=== PATIENT | male | born 1975 | race Caucasian/White ===

== ENCOUNTER 2017-08-27 11:14 | Inpatient (IN) | payer OTHER ==
[2017-08-27 12:43] VITALS: BMI 36.5
--- NOTE | 2017-08-27 16:10 | HP ---
CIWA Score - CIWA Score Nausea/Vomitin Muscle Tremors: 3 Anxiety: 3 Agitation: 3 Paroxysmal Sweats: 2 Orientation: 0-Oriented Tacttile Disturbances: 2-Mild Itch/Numbness/Burn Auditory Disturbances: 2-Mild Harshness/Frighten Visual Disturbances: 2-Mild Sensitivity Headache: 2-Mild CIWA-Ar Total Score: 22 Admission ROS [facility] - HPI Chief Complaint: I NEED HELP TO STOP DRINKING ALCOHOL,XANAX,COCAINE,HEROIN DEPENDENCE,METHADONE MAINTENANCE 80 MGS/DAY, LAST MEDICATED YESTERDAY SEIZURE THIS MORNING,SYNCOPE HTN,TYPE 2 DM, ANXIETY,DEPRESSION,INSOMNIA LONGEST SOBRIETY 3 YEARS Allergies/Adverse Reactions: Allergies Allergy/AdvReac Type Severity Reaction Status Date / Time No Known Allergies Allergy Verified 08/27/17 16:16 History of Present Illness: THIS 42 YEARS OLD MALE WITH ALCOHOL,COCAINE,KLONOPIN,HEROIN ABUSED,MMTP 80 MGS/DAY,LAST MEDICATED SAT 08/26/17 MENTIONED ABOVE - Ebola screening Have you traveled outside of the country in the last 21 days: No (N) Have you had contact with anyone from an Ebola affected area: No Have you been sick,other than usual withdrawal symptoms: No Do you have a fever: No - Review of Systems Constitutional: Chills, Diaphoresis, Loss of Appetite, Malaise, Night Sweats, Changes in sleep, Weakness, Unintentional Wgt. Loss EENT: reports: Tearing, Nose Congestion Respiratory: reports: No Symptoms reported Cardiac: reports: No Symptoms Reported GI: reports: Diarrhea, Nausea, Vomiting, Abdominal cramping : reports: No Symptoms Reported Musculoskeletal: reports: Back Pain, Muscle Pain Integumentary: reports: Dryness Neuro: reports: Headache, Tremors Endocrine: reports: No Symptoms Reported Hematology: reports: No Symptoms Reported Psychiatric: reports: No Sypmtoms Reported, Judgement Intact, Mood/Affect Appropiate, Orientated x3, Anxious, Depressed Patient History - Patient Medical History Hx Anemia: No Hx Asthma: No Hx Chronic Obstructive Pulmonary Disease (COPD): No Hx Cancer: No Hx Cardiac Disorders: No Hx Congestive Heart Failure: No Hx Hypertension: Yes (ON ENALAPRIL 5 MGS PO DAILY) Hx Hypercholesterolemia: No Hx Pacemaker: No HX Cerebrovascular Accident: No Hx Seizures: Yes (LAST 08/27/17) Hx Dementia: No Hx Diabetes: Yes (ON METFORMIN 500 MGS PO DAILY) Hx Gastrointestinal Disorders: No Hx Liver Disease: No Hx Genitourinary Disorders: No Hx Sexually Transmitted Disorders: No Hx Renal Disease (ESRD): No Hx Thyroid Disease: No Hx Human Immunodeficiency Virus (HIV): No (LAST 08/03 NEGATIVE) Hx Hepatitis C: Yes (TREATED WITH HARVONI ) Hx Depression: Yes (ANXIETY,INSOMNIA) Hx Suicide Attempt: No Hx Bipolar Disorder: No Hx Schizophrenia: No Other Medical History: NO SUICIDAL,NO HOMICIDAL - Patient Surgical History Past Surgical History: No - PPD History Previous Implant?: Yes Documented Results: Negative w/o proof Implanted On Prior [facility] Admission?: No PPD to be Administered?: Yes - Smoking Cessation Smoking history: Current every day smoker Have you smoked in the past 12 months: Yes Aproximately how many cigarettes per day: 20 Hx Chewing Tobacco Use: No Initiated information on smoking cessation: Yes 'Breaking Loose' booklet given: 08/27/17 - Substance & Tx. History Hx Alcohol Use: Yes Hx Substance Use: Yes Substance Use Type: Alcohol, Cocaine, Heroin, Tranquilizers Hx Substance Use Treatment: Yes ([facility] 07/13 COMPLETED) - Substances Abused Benzodiazepine (Klonopin) Route: Oral Frequency: Daily Amount used: 6 MGS Age of first use: 41 Date of Last Use: 08/27/17 Alcohol Route: Oral Frequency: Daily Amount used: 3 OF 12 OZS OF BEER Age of first use: 19 Date of Last Use: 08/27/17 Cocaine Route: Smoking Frequency: 1-2 times per week Amount used: 20$ Age of first use: 20 Date of Last Use: 08/26/17 Heroin Route: Inhalation Frequency: Daily Amount used: 5 TO 6 BAGS Age of first use: 22 Date of Last Use: 08/26/17 Family Disease History - Family Disease History Family History: Denies Admission Physical Exam S - Vital Signs Vital Signs: Vital Signs - 24 hr 08/27/17 12:31 Temperature 97.8 F Pulse Rate 86 Respiratory 19 Rate Blood Pressure 158/95 - Physical General Appearance: Yes: Moderate Distress, Tremorous, Irritable, Sweating, Anxious HEENTM: Yes: Normal ENT Inspection, GOPI, Pharynx Normal Respiratory: Yes: Lungs Clear, Normal Breath Sounds, No Respiratory Distress Neck: Yes: Within Normal Limits Breast: Yes: Within Normal Limits Cardiology: Yes: Within Normal Limits, Regular Rhythm, Regular Rate, S1, S2 Abdominal: Yes: Within Normal Limits, Normal Bowel Sounds, Non Tender, Soft Genitourinary: Yes: Within Normal Limits Back: Yes: Muscle Spasm Musculoskeletal: Yes: full range of Motion, Back pain, Muscle Pain Extremities: Yes: Within Normal Limits, Normal Range of Motion, Tremors Neurological: Yes: facilities operator II-XII NML intact, Fully Oriented, Alert, Motor Strength 5/5 Integumentary: Yes: Dry Lymphatic: Yes: Within Normal Limits - Diagnostic (1) Uncomplicated sedative, hypnotic or anxiolytic withdrawal Current Visit: Yes Status: Acute (2) Cocaine dependence Current Visit: Yes Status: Acute (3) Alcohol dependence, uncomplicated Current Visit: Yes Status: Acute (4) Heroin abuse Current Visit: Yes Status: Acute (5) Methadone maintenance therapy patient Current Visit: Yes Status: Acute (6) Nicotine dependence Current Visit: Yes Status: Acute (7) Weight loss Current Visit: Yes Status: Acute Cleared for Admission [facility] - Detox or Rehab [facility] Level of Care: Medically Managed Detox Regimen/Protocol: Valium [facility] Breath Alcohol Content Breath Alcohol Content: 0 Urine Drug Screen - Results Drug Screen Negative: No Urine Drug Screen Results: CIRO-Cocaine, OPI-Opiates, MTD-Methadone
[2017-08-27] MEDS ORDERED: MENTHOL/PHENOL 1 EACH UD MM PRN (16:39)
[2017-08-27] MEDS ORDERED: ACETAMINOPHEN 325 MG TABLET (FP) PO PRN (16:39)
[2017-08-27] MEDS ORDERED: IBUPROFEN 400 MG TABLET (FP) PO PRN (16:39)
[2017-08-27] MEDS ORDERED: diazePAM 5 MG TABLET PO PRN (16:39)
[2017-08-27] MEDS ORDERED: NICOTINE POLACRILEX 2 MG GUM BC PRN (16:39)
[2017-08-27] MEDS ORDERED: P-EPHED 60MG/TRIPROLIDI 2.5MG TABLET PO PRN (16:39)
[2017-08-27] MEDS ORDERED: hydrOXYzine PAMOATE 50 MG CAPSULE (FP) PO PRN (16:39)
[2017-08-27] MEDS ORDERED: LOPERAMIDE HCL 2 MG CAPSULE PO PRN (16:39)
[2017-08-27] MEDS ORDERED: MAGNESIUM CITRATE 300 ML BOTTLE PO PRN (16:39)
[2017-08-27] MEDS ORDERED: guaiFENesin/D-METHORPHAN HB 10 ML UNIT-DOSE CUPS PO PRN (16:39)
[2017-08-27] MEDS ORDERED: MAG HYDROX/AL HYDROX/SIMETH 30 ML UNIT-DOSE CUP PO PRN (16:39)
[2017-08-27] MEDS ORDERED: MAGNESIUM HYDROX 2400MG/30ML ORAL SUSPENSION 30 ML CUP PO PRN (16:39)
[2017-08-27] MEDS ORDERED: diazePAM 5 MG TABLET PO ONE (17:15)
[2017-08-27] MEDS ORDERED: METHADONE HCL 10 MG TABLET PO ONE (17:15)
[2017-08-27] MEDS ORDERED: FLU VACCINE QUAD 60 MCG/0.5 ML (MDV 17-18) IM ONE (18:15)
[2017-08-27] MEDS: NICOTINE 21 MG/24 HOURS TOPICAL PATCH TD SCH (18:28)
[2017-08-27] MEDS: diazePAM 5 MG TABLET PO SCH (22:13)
[2017-08-27] MEDS: THIAMINE HCL 100 MG TABLET (FP) PO SCH (22:13)
[2017-08-27 22:55] LABS: URINE APPEARANCE CLEAR; URINE BILIRUBIN NEGATIVE (NEGATIVE); URINE BLOOD NEGATIVE (NEGATIVE); URINE COLOR YELLOW; URINE GLUCOSE (UA) NEGATIVE (NEGATIVE); URINE KETONE NEGATIVE (NEGATIVE); URINE LEUK ESTERASE NEGATIVE (NEGATIVE); URINE NITRITE NEGATIVE (NEGATIVE); URINE PROTEIN NEGATIVE (NEGATIVE); URINE UROBILINOGEN NEGATIVE mg/dL (0.2-1.0)
[2017-08-28] MEDS: diazePAM 5 MG TABLET PO SCH ×3 (05:18→22:06)
[2017-08-28] MEDS: metFORMIN HCL 500 MG TABLET (FP) PO SCH (07:43)
[2017-08-28] MEDS: PRENATAL VITAMINS W/ FOLIC ACID TABLET (FP) PO SCH (09:44)
[2017-08-28] MEDS: ENALAPRIL MALEATE 5 MG TABLET (FP) PO SCH (09:45)
[2017-08-28] MEDS ORDERED: METHADONE HCL 40 MG DISPERSABLE TABLET PO ONE (09:45)
[2017-08-28] MEDS: ASPIRIN COATED 81 MG TABLET.EC PO SCH (09:45)
[2017-08-28 10:16] LABS: HEMOGLOBIN 12.1 GM/dL (11.7-16.9); MCH 29.6 pg (25.7-33.7); MCHC 33.6 g/dl (32.0-35.9); MEAN CELL VOLUME 88.3 fl (80-96); MEAN PLT VOLUME 9.6 fl (7.5-11.1); PLATELET COUNT 162 K/MM3 (134-434); RBC 4.08 M/mm3 (4.00-5.60); RDW 15.6 % (11.9-15.9); WHITE BLOOD COUNT 7.6 K/mm3 (4.0-10.0)
[2017-08-28 10:26] LABS: ALBUMIN 3.5 g/dl (3.4-5.0); ANION GAP 10 (8-16); BLOOD UREA NITROGEN 14 mg/dL (7-18); CALCIUM 8.5 mg/dL (8.5-10.1); CHLORIDE 107 mmol/L (98-107); CO2 26 mmol/L (21-32); GLUCOSE,RANDOM 92 mg/dL (74-106); POTASSIUM 4.1 mmol/L (3.5-5.1); SODIUM 143 mmol/L (136-145)
[2017-08-28 10:30] LABS: ALK PHOS 63 U/L (45-117); BILIRUBIN,TOTAL 0.2 mg/dL (0.2-1.0); CREATININE 0.8 mg/dL (0.7-1.3); SGOT/AST 9 U/L (15-37); SGPT/ALT 13 U/L (12-78); TOT PROT 6.6 g/dl (6.4-8.2)
--- NOTE | 2017-08-28 10:49 | EKG ---
Test Reason : Blood Pressure : / mmHG Vent. Rate : 077 BPM Atrial Rate : 077 BPM P-R Int : 160 ms QRS Dur : 110 ms QT Int : 402 ms P-R-T Axes : 054 047 018 degrees QTc Int : 454 ms NORMAL SINUS RHYTHM NORMAL ECG NO PREVIOUS ECGS AVAILABLE Confirmed by BRIGIDA GANNON MD ([id number]) on 08/28/2017 10:49:25 AM Referred By: Jairo Carrillo Confirmed By:BRIGIDA GANNON MD
[2017-08-28] MEDS: NICOTINE 21 MG/24 HOURS TOPICAL PATCH TD SCH (11:53)
[2017-08-28] MEDS ORDERED: PNEUMOCOCCAL 23 VACCINE 0.5 ML VIAL IM ONE (12:00)
[2017-08-28] MEDS ORDERED: PNEUMOC 13-VAL CONJ-DIP CRM/PF 0.5 ML DISP.SYRIN IM ONE (12:00)
[2017-08-28] MEDS ORDERED: FLU VACCINE QUAD 60 MCG/0.5 ML (MDV 17-18) IM ONE (12:00)
--- NOTE | 2017-08-28 12:32 | CONSULT ---
[facility] Psychiatric Consult - Data Date of interview: 08/28/17 Admission source: [facility] Identifying data: First admission to [facility] for this 42 y/o male seeking detox treatment on for alcohol,cocaine,benzodiazepine and heroin dependence.Patient is ,a father of one,domiciled and currently employed. Substance Abuse History: Confirmed by patient in this interview.See details of patterns of abuse in current [facility] report as follows : Smoking history: Current every day smoker. Have you smoked in the past 12 months: Yes. Aproximately how many cigarettes per day: 20. Hx Chewing Tobacco Use: No. Initiated information on smoking cessation: Yes. 'Breaking Loose' booklet given: . - Substance & Tx. History. Hx Alcohol Use: Yes. Hx Substance Use: Yes. Substance Use Type: Alcohol, Cocaine, Heroin, Tranquilizers. Hx Substance Use Treatment: Yes ([facility] 07/13 COMPLETED). - Substances Abused. Benzodiazepine ( Klonopin). Route: Oral. Frequency: Daily. Amount used: 6 MGS. Age of first use: 41. Date of Last Use: 08/27/17. Alcohol. Route: Oral. Frequency: Daily. Amount used: 3 OF 12 OZS OF BEER. Age of first use: 19. Date of Last Use: 08/27/17. Cocaine. Route: Smoking. Frequency: 1-2 times per week. Amount used: 20$. Age of first use: 20. Date of Last Use: 08/26/17. Heroin. Route: Inhalation. Frequency: Daily. Amount used: 5 TO 6 BAGS. Age of first use: 22. Date of Last Use: 08/26/17 Medical History: Diabetes mellitus,hepatitis C,withdrawal-related seizures and hypertension.No allergies. Psychiatric History: Patient admits to two psychiatric hospitalizations (no recall of names of institutions).Diagnosed with Bipolar Disorder.Prescribed psychotropic medications (unnamed).Mr Dick informs that he is on methadone maintenance (80 mg/day) at the [facility] in the [place].Review of pharmacy yields evidence of refills () for wellbutrin SR 100 mg # 30 + remeron 45 mg # 30.Patient declares a history of suicide attempt (self-mutilation). Physical/Sexual Abuse/Trauma History: Patient denies history of abuse. Additional Comment: Urine Drug Screen Results: CIRO-Cocaine, OPI-Opiates, MTD- Methadone.Noted. Mental Status Exam - Mental Status Exam Alert and Oriented to: Time, Place, Person Cognitive Function: Good Patient Appearance: Well Groomed (obese) Mood: Nervous, Withdrawn, Anxious Affect: Mood Congruent, Constricted Patient Behavior: Fatigued, Appropriate, Cooperative Speech Pattern: Clear, Appropriate Voice Loudness: Normal Thought Process: Intact, Goal Oriented Thought Disorder: Not Present Hallucinations: Denies Suicidal Ideation: Denies Homicidal Ideation: Denies Insight/Judgement: Poor Sleep: Poorly, Difficulty falling asleep Appetite: Good Muscle strength/Tone: Normal Gait/Station: Normal Psychiatric Findings - Problem List ([place] 1, 2,3) (1) Uncomplicated sedative, hypnotic or anxiolytic withdrawal Status: Acute (2) Cocaine dependence Status: Acute Qualifiers: Substance use status: uncomplicated Qualified Code(s): F14.20 - Cocaine dependence, uncomplicated (3) Alcohol dependence, uncomplicated Status: Acute (4) Nicotine dependence Status: Acute Qualifiers: Nicotine product type: cigarettes Substance use status: uncomplicated Qualified Code(s): F17.210 - Nicotine dependence, cigarettes, uncomplicated (5) Opioid dependence on agonist therapy Status: Acute (6) Substance induced mood disorder Status: Acute (7) Insomnia Status: Acute Qualifiers: Insomnia type: unspecified Qualified Code(s): G47.00 - Insomnia, unspecified - Initial Treatment Plan Initial Treatment Plan: Psychoeducation.Sleep hygiene.Detoxification in progress.Medications : wellbutrin XL 150 mg po daily + remeron 15 mg po hs.Side effects/benefits of both drugs are discussed with the patient.Mr Dick agrees to follow this plan of care.Observation.
--- NOTE | 2017-08-28 13:24 | PN ---
[facility] CIWA - CIWA Score Nausea/Vomitin Muscle Tremors: 3 Anxiety: 3 Agitation: 4-Moderately Restless Paroxysmal Sweats: 3 Orientation: 0-Oriented Tacttile Disturbances: 0-None Auditory Disturbances: 0-None Visual Disturbances: 0-None Headache: 0-None Present CIWA-Ar Total Score: 16 S Progress Note (SOAP) Subjective: sleep disturbance shakes sweats Objective: 08/28/17 13:21 A & O x 3 Anxious Vital Signs Temperature 96.6 F L 08/28/17 09:57 Pulse Rate 70 08/28/17 09:57 Respiratory Rate 20 08/28/17 09:57 Blood Pressure 147/95 08/28/17 09:57 O2 Sat by Pulse Oximetry (%) Laboratory Last Values WBC 7.6 K/mm3 (4.0-10.0) 08/28/17 07:00 RBC 4.08 M/mm3 (4.00-5.60) 08/28/17 07:00 Hgb 12.1 GM/dL (11.7-16.9) 08/28/17 07:00 Hct 36.0 % (35.4-49) 08/28/17 07:00 MCV 88.3 fl (80-96) 08/28/17 07:00 MCH 29.6 pg (25.7-33.7) 08/28/17 07:00 MCHC 33.6 g/dl (32.0-35.9) 08/28/17 07:00 RDW 15.6 % (11.9-15.9) 08/28/17 07:00 Plt Count 162 K/MM3 (134-434) 08/28/17 07:00 MPV 9.6 fl (7.5-11.1) 08/28/17 07:00 Sodium 143 mmol/L (136-145) 08/28/17 07:00 Potassium 4.1 mmol/L (3.5-5.1) 08/28/17 07:00 Chloride 107 mmol/L (98-107) 08/28/17 07:00 Carbon Dioxide 26 mmol/L (21-32) 08/28/17 07:00 Anion Gap 10 (8-16) 08/28/17 07:00 BUN 14 mg/dL (7-18) 08/28/17 07:00 Creatinine 0.8 mg/dL (0.7-1.3) 08/28/17 07:00 Creat Clearance w eGFR > 60 (>60) 08/28/17 07:00 POC Glucometer 100 UNITS (80-120) 08/28/17 05:18 Random Glucose 92 mg/dL (74-106) 08/28/17 07:00 Calcium 8.5 mg/dL (8.5-10.1) 08/28/17 07:00 Total Bilirubin 0.2 mg/dL (0.2-1.0) 08/28/17 07:00 AST 9 U/L (15-37) L 08/28/17 07:00 ALT 13 U/L (12-78) 08/28/17 07:00 Alkaline Phosphatase 63 U/L (45-117) 08/28/17 07:00 Total Protein 6.6 g/dl (6.4-8.2) 08/28/17 07:00 Albumin 3.5 g/dl (3.4-5.0) 08/28/17 07:00 Urine Color Yellow 08/27/17 22:40 Urine Appearance Clear 08/27/17 22:40 Urine pH 6.0 (5.0-8.0) 08/27/17 22:40 Ur Specific [place] 1.026 (1.001-1.035) 08/27/17 22:40 Urine Protein Negative (NEGATIVE) 08/27/17 22:40 Urine Glucose (UA) Negative (NEGATIVE) 08/27/17 22:40 Urine Ketones Negative (NEGATIVE) 08/27/17 22:40 Urine Blood Negative (NEGATIVE) 08/27/17 22:40 Urine Nitrite Negative (NEGATIVE) 08/27/17 22:40 Urine Bilirubin Negative (NEGATIVE) 08/27/17 22:40 Urine Urobilinogen Negative mg/dL (0.2-1.0) 08/27/17 22:40 Ur Leukocyte Esterase Negative (NEGATIVE) 08/27/17 22:40 RPR Titer Nonreactive (NONREACTIVE) 08/28/17 07:00 labs noted Assessment: 08/28/17 13:24 withdrawal sx Plan: continue detox
[2017-08-28] MEDS: MIRTAZAPINE 15 MG TABLET (FP) PO SCH (22:06)
[2017-08-28] MEDS: THIAMINE HCL 100 MG TABLET (FP) PO SCH (22:06)
[2017-08-29] MEDS: METHADONE HCL 40 MG DISPERSABLE TABLET PO SCH (05:39)
[2017-08-29] MEDS: metFORMIN HCL 500 MG TABLET (FP) PO SCH (06:10)
[2017-08-29] MEDS: diazePAM 5 MG TABLET PO SCH ×2 (10:25→22:12)
[2017-08-29] MEDS: PRENATAL VITAMINS W/ FOLIC ACID TABLET (FP) PO SCH (10:25)
[2017-08-29] MEDS: ASPIRIN COATED 81 MG TABLET.EC PO SCH (10:25)
[2017-08-29] MEDS: ENALAPRIL MALEATE 5 MG TABLET (FP) PO SCH (10:25)
[2017-08-29] MEDS: NICOTINE 21 MG/24 HOURS TOPICAL PATCH TD SCH (10:25)
--- NOTE | 2017-08-29 12:36 | PN ---
[facility] CIWA - CIWA Score Nausea/Vomitin-No Nausea/No Vomiting Muscle Tremors: 4-Moderate,w/Arms Extend Anxiety: 3 Agitation: 3 Paroxysmal Sweats: No Perspiration Orientation: 2-Disoriented Date<2 days Tacttile Disturbances: 3-Moderate Itch/Numb/Burn Auditory Disturbances: 2-Mild Harshness/Frighten Visual Disturbances: 0-None Headache: 0-None Present CIWA-Ar Total Score: 17 S Progress Note (SOAP) Subjective: Constipation, Tremors, Interrupted Sleep. Objective: PATIENT A & O X 2 (UNCERTAIN ABOUT CURRENT DAY/ DATE). PATIENT OBSERVED AMBULATING ON UNIT. NO ACUTE DISTRESS. 08/29/17 12:34 Vital Signs Temperature 96.4 F L 08/29/17 09:07 Pulse Rate 74 08/29/17 09:07 Respiratory Rate 18 08/29/17 09:07 Blood Pressure 125/78 08/29/17 09:07 O2 Sat by Pulse Oximetry (%) Laboratory Tests 08/27/17 08/27/17 08/28/17 18:20 22:40 05:18 WBC RBC Hgb Hct MCV MCH MCHC RDW Plt Count MPV Sodium Potassium Chloride Carbon Dioxide Anion Gap BUN Creatinine Creat Clearance w eGFR POC Glucometer 145 100 Random Glucose Calcium Total Bilirubin AST ALT Alkaline Phosphatase Total Protein Albumin Urine Color Yellow Urine Appearance Clear Urine pH 6.0 Ur Specific [place] 1.026 Urine Protein Negative Urine Glucose (UA) Negative Urine Ketones Negative Urine Blood Negative Urine Nitrite Negative Urine Bilirubin Negative Urine Urobilinogen Negative Ur Leukocyte Esterase Negative RPR Titer 08/28/17 08/28/17 08/28/17 07:00 07:00 07:00 WBC 7.6 RBC 4.08 Hgb 12.1 Hct 36.0 MCV 88.3 MCH 29.6 MCHC 33.6 RDW 15.6 Plt Count 162 MPV 9.6 Sodium 143 Potassium 4.1 Chloride 107 Carbon Dioxide 26 Anion Gap 10 BUN 14 Creatinine 0.8 Creat Clearance w eGFR > 60 POC Glucometer Random Glucose 92 Calcium 8.5 Total Bilirubin 0.2 AST 9 L ALT 13 Alkaline Phosphatase 63 Total Protein 6.6 Albumin 3.5 Urine Color Urine Appearance Urine pH Ur Specific [place] Urine Protein Urine Glucose (UA) Urine Ketones Urine Blood Urine Nitrite Urine Bilirubin Urine Urobilinogen Ur Leukocyte Esterase RPR Titer Nonreactive 08/28/17 08/29/17 16:25 05:41 WBC RBC Hgb Hct MCV MCH MCHC RDW Plt Count MPV Sodium Potassium Chloride Carbon Dioxide Anion Gap BUN Creatinine Creat Clearance w eGFR POC Glucometer 138 128 Random Glucose Calcium Total Bilirubin AST ALT Alkaline Phosphatase Total Protein Albumin Urine Color Urine Appearance Urine pH Ur Specific [place] Urine Protein Urine Glucose (UA) Urine Ketones Urine Blood Urine Nitrite Urine Bilirubin Urine Urobilinogen Ur Leukocyte Esterase RPR Titer LABS NOTED. Assessment: 08/29/17 12:34 WITHDRAWAL SYMPTOMS. Plan: CONTINUE DETOX.
[2017-08-29] MEDS: MIRTAZAPINE 15 MG TABLET (FP) PO SCH (22:12)
[2017-08-29] MEDS: THIAMINE HCL 100 MG TABLET (FP) PO SCH (22:12)
[2017-08-30] MEDS: METHADONE HCL 40 MG DISPERSABLE TABLET PO SCH (05:46)
[2017-08-30] MEDS: metFORMIN HCL 500 MG TABLET (FP) PO SCH (07:29)
[2017-08-30] MEDS: NICOTINE 21 MG/24 HOURS TOPICAL PATCH TD SCH (10:18)
[2017-08-30] MEDS: ENALAPRIL MALEATE 5 MG TABLET (FP) PO SCH (10:18)
[2017-08-30] MEDS: ASPIRIN COATED 81 MG TABLET.EC PO SCH (10:18)
[2017-08-30] MEDS: diazePAM 5 MG TABLET PO SCH ×2 (10:18→23:12)
[2017-08-30] MEDS: PRENATAL VITAMINS W/ FOLIC ACID TABLET (FP) PO SCH (10:18)
--- NOTE | 2017-08-30 12:21 | PN ---
[facility] Progress Note (SOAP) Subjective: Anxious, Tremors. Objective: PATIENT A & O X 3, OBSERVED AMBULATING ON UNIT. NO ACUTE DISTRESS. 08/30/17 12:21 Vital Signs Temperature 99.0 F 08/30/17 09:11 Pulse Rate 90 08/30/17 09:11 Respiratory Rate 18 08/30/17 09:11 Blood Pressure 130/78 08/30/17 09:11 O2 Sat by Pulse Oximetry (%) Laboratory Tests 08/27/17 08/27/17 08/28/17 18:20 22:40 05:18 WBC RBC Hgb Hct MCV MCH MCHC RDW Plt Count MPV Sodium Potassium Chloride Carbon Dioxide Anion Gap BUN Creatinine Creat Clearance w eGFR POC Glucometer 145 100 Random Glucose Calcium Total Bilirubin AST ALT Alkaline Phosphatase Total Protein Albumin Urine Color Yellow Urine Appearance Clear Urine pH 6.0 Ur Specific [place] 1.026 Urine Protein Negative Urine Glucose (UA) Negative Urine Ketones Negative Urine Blood Negative Urine Nitrite Negative Urine Bilirubin Negative Urine Urobilinogen Negative Ur Leukocyte Esterase Negative RPR Titer 08/28/17 08/28/17 08/28/17 07:00 07:00 07:00 WBC 7.6 RBC 4.08 Hgb 12.1 Hct 36.0 MCV 88.3 MCH 29.6 MCHC 33.6 RDW 15.6 Plt Count 162 MPV 9.6 Sodium 143 Potassium 4.1 Chloride 107 Carbon Dioxide 26 Anion Gap 10 BUN 14 Creatinine 0.8 Creat Clearance w eGFR > 60 POC Glucometer Random Glucose 92 Calcium 8.5 Total Bilirubin 0.2 AST 9 L ALT 13 Alkaline Phosphatase 63 Total Protein 6.6 Albumin 3.5 Urine Color Urine Appearance Urine pH Ur Specific [place] Urine Protein Urine Glucose (UA) Urine Ketones Urine Blood Urine Nitrite Urine Bilirubin Urine Urobilinogen Ur Leukocyte Esterase RPR Titer Nonreactive 08/28/17 08/29/17 08/29/17 16:25 05:41 16:25 WBC RBC Hgb Hct MCV MCH MCHC RDW Plt Count MPV Sodium Potassium Chloride Carbon Dioxide Anion Gap BUN Creatinine Creat Clearance w eGFR POC Glucometer 138 128 133 Random Glucose Calcium Total Bilirubin AST ALT Alkaline Phosphatase Total Protein Albumin Urine Color Urine Appearance Urine pH Ur Specific [place] Urine Protein Urine Glucose (UA) Urine Ketones Urine Blood Urine Nitrite Urine Bilirubin Urine Urobilinogen Ur Leukocyte Esterase RPR Titer 08/30/17 05:48 WBC RBC Hgb Hct MCV MCH MCHC RDW Plt Count MPV Sodium Potassium Chloride Carbon Dioxide Anion Gap BUN Creatinine Creat Clearance w eGFR POC Glucometer 95 Random Glucose Calcium Total Bilirubin AST ALT Alkaline Phosphatase Total Protein Albumin Urine Color Urine Appearance Urine pH Ur Specific [place] Urine Protein Urine Glucose (UA) Urine Ketones Urine Blood Urine Nitrite Urine Bilirubin Urine Urobilinogen Ur Leukocyte Esterase RPR Titer LABS NOTED. Assessment: 08/30/17 12:22 WITHDRAWAL SYMPTOMS. Plan: CONTINUE DETOX.
[2017-08-30] MEDS: THIAMINE HCL 100 MG TABLET (FP) PO SCH (23:12)
[2017-08-30] MEDS: MIRTAZAPINE 15 MG TABLET (FP) PO SCH (23:12)
[2017-08-31] MEDS: METHADONE HCL 40 MG DISPERSABLE TABLET PO SCH (05:36)
[2017-08-31 06:17] VITALS: BP 143/92; PULSE 78; TEMP 98
[2017-08-31] MEDS: metFORMIN HCL 500 MG TABLET (FP) PO SCH (06:25)
[2017-08-31] MEDS ORDERED: diazePAM 5 MG TABLET PO SCH (10:00)
--- NOTE | 2017-08-31 15:17 | DS ---
[facility] Detox Discharge Summary Admission Date: 08/27/17 Discharge Date: 08/31/17 - History Present History: Alcohol Dependence, Cocaine Dependence, Opioid Dependence, Sedative Dependence, MMTP Additional Comments: PATIENT RETURNING TO MMTP PROGRAM ([facility]). PATIENT WAS DISCHARGED FROM DETOX UNIT IN STABLE MEDICAL CONDITION. Pertinent Past History: Nicotine Dependence, Weight Loss, Insomnia, HTN, TYPE II DM, MMTP. - Physical Exam Results Vital Signs: Vital Signs Temperature 98 F 08/31/17 06:17 Pulse Rate 78 08/31/17 06:17 Respiratory Rate 18 08/31/17 06:17 Blood Pressure 143/92 08/31/17 06:17 O2 Sat by Pulse Oximetry (%) Pertinent Admission Physical Exam Findings: WITHDRAWAL SYMPTOMS. Laboratory Tests 08/27/17 08/27/17 08/28/17 18:20 22:40 05:18 WBC RBC Hgb Hct MCV MCH MCHC RDW Plt Count MPV Sodium Potassium Chloride Carbon Dioxide Anion Gap BUN Creatinine Creat Clearance w eGFR POC Glucometer 145 100 Random Glucose Calcium Total Bilirubin AST ALT Alkaline Phosphatase Total Protein Albumin Urine Color Yellow Urine Appearance Clear Urine pH 6.0 Ur Specific [place] 1.026 Urine Protein Negative Urine Glucose (UA) Negative Urine Ketones Negative Urine Blood Negative Urine Nitrite Negative Urine Bilirubin Negative Urine Urobilinogen Negative Ur Leukocyte Esterase Negative RPR Titer 08/28/17 08/28/17 08/28/17 07:00 07:00 07:00 WBC 7.6 RBC 4.08 Hgb 12.1 Hct 36.0 MCV 88.3 MCH 29.6 MCHC 33.6 RDW 15.6 Plt Count 162 MPV 9.6 Sodium 143 Potassium 4.1 Chloride 107 Carbon Dioxide 26 Anion Gap 10 BUN 14 Creatinine 0.8 Creat Clearance w eGFR > 60 POC Glucometer Random Glucose 92 Calcium 8.5 Total Bilirubin 0.2 AST 9 L ALT 13 Alkaline Phosphatase 63 Total Protein 6.6 Albumin 3.5 Urine Color Urine Appearance Urine pH Ur Specific [place] Urine Protein Urine Glucose (UA) Urine Ketones Urine Blood Urine Nitrite Urine Bilirubin Urine Urobilinogen Ur Leukocyte Esterase RPR Titer Nonreactive 08/28/17 08/29/17 08/29/17 16:25 05:41 16:25 WBC RBC Hgb Hct MCV MCH MCHC RDW Plt Count MPV Sodium Potassium Chloride Carbon Dioxide Anion Gap BUN Creatinine Creat Clearance w eGFR POC Glucometer 138 128 133 Random Glucose Calcium Total Bilirubin AST ALT Alkaline Phosphatase Total Protein Albumin Urine Color Urine Appearance Urine pH Ur Specific [place] Urine Protein Urine Glucose (UA) Urine Ketones Urine Blood Urine Nitrite Urine Bilirubin Urine Urobilinogen Ur Leukocyte Esterase RPR Titer 08/30/17 08/31/17 05:48 05:38 WBC RBC Hgb Hct MCV MCH MCHC RDW Plt Count MPV Sodium Potassium Chloride Carbon Dioxide Anion Gap BUN Creatinine Creat Clearance w eGFR POC Glucometer 95 93 Random Glucose Calcium Total Bilirubin AST ALT Alkaline Phosphatase Total Protein Albumin Urine Color Urine Appearance Urine pH Ur Specific [place] Urine Protein Urine Glucose (UA) Urine Ketones Urine Blood Urine Nitrite Urine Bilirubin Urine Urobilinogen Ur Leukocyte Esterase RPR Titer LABS NOTED. - Treatment Hospital Course: Detox Protocol Followed, Detoxed Safely, Responded well, Discharged Condition Good Patient has Accepted a Rehab Referral to: PATIENT RETURNING TO [facility] FOR AFTERCARE. - Medication Discharge Medications: Ambulatory Orders Enalapril Maleate [Vasotec] 5 mg PO DAILY 08/27/17 Metformin HCl [Glucophage] 500 mg PO DAILY 08/27/17 Bupropion HCl [Wellbutrin Xl -] 150 mg PO DAILY #30 tablet 08/28/17 Mirtazapine [Remeron -] 30 mg PO HS #30 tablet 08/28/17 - Diagnosis (1) Alcohol dependence, uncomplicated Status: Acute (2) Cocaine dependence Status: Acute Qualifiers: Substance use status: uncomplicated Qualified Code(s): F14.20 - Cocaine dependence, uncomplicated (3) Heroin abuse Status: Acute (4) Methadone maintenance therapy patient Status: Acute (5) Nicotine dependence Status: Acute Qualifiers: Nicotine product type: cigarettes Substance use status: uncomplicated Qualified Code(s): F17.210 - Nicotine dependence, cigarettes, uncomplicated (6) Uncomplicated sedative, hypnotic or anxiolytic withdrawal Status: Acute (7) Weight loss Status: Acute (8) Insomnia Status: Acute Qualifiers: Insomnia type: unspecified Qualified Code(s): G47.00 - Insomnia, unspecified (9) Opioid dependence on agonist therapy Status: Acute (10) Substance induced mood disorder Status: Acute - AMA Did Patient Leave Against Medical Advice: No
== END 2017-08-31 06:30 | disposition home or self-care (01) | DRG 773 ==
LOC: YASAS 11:14 → Y3N 17:13 → MERGE 17:13
PROVIDERS: ADMIT Internal Medicine; ATTEND Internal Medicine
PROC: HZ2ZZZZ Detoxification Services for Substance Abuse Treatment (ICD-10-PCS; principal; 2017-08-27)
DX: F10.230 Alcohol dependence with withdrawal, uncomplicated (principal); F11.20 Opioid dependence, uncomplicated; F13.230 Sedative, hypnotic or anxiolytic dependence with withdrawal, uncomplicated; F14.20 Cocaine dependence, uncomplicated; F17.210 Nicotine dependence, cigarettes, uncomplicated; F19.24 Other psychoactive substance dependence with psychoactive substance-induced mood disorder; I10 Essential (primary) hypertension; G47.00 Insomnia, unspecified; G40.909 Epilepsy, unspecified, not intractable, without status epilepticus; E11.9 Type 2 diabetes mellitus without complications; B18.2 Chronic viral hepatitis C; Z79.84 Long term (current) use of oral hypoglycemic drugs; Z87.898 Personal history of other specified conditions
CPT/HCPCS: 36415; 80053; 81003; 82962; 85027; 86593; 90688; 90732; 93005; 93010; G0008; G0009

== ENCOUNTER 2017-11-20 12:42 | Inpatient (IN) | payer OTHER ==
[2017-11-20 13:36] VITALS: BMI 36.2
--- NOTE | 2017-11-20 16:29 | HP ---
CIWA Score - CIWA Score Nausea/Vomitin-Mild Nausea/No Vomiting Muscle Tremors: 4-Moderate,w/Arms Extend Anxiety: 1-Mildly Anxious Agitation: 1-Slight > Activity Paroxysmal Sweats: 1-Minimal Palms Moist Orientation: 0-Oriented Tacttile Disturbances: 0-None Auditory Disturbances: 0-None Visual Disturbances: 0-None Headache: 0-None Present CIWA-Ar Total Score: 8 Admission ROS S - HPI Chief Complaint: Here for benzo detox. Allergies/Adverse Reactions: Allergies Allergy/AdvReac Type Severity Reaction Status Date / Time No Known Allergies Allergy Verified 11/20/17 14:15 History of Present Illness: Hx heroin use disorder. Currently on methadone maintenance of 90 mg. last methadone dose was on 11/19. Admits to using illicit heroin while on methadone and last used heroin at 8 am today. Currently here for Xanax detox. Started using Xanax 2 mg x 3-4 daily for last several months. Hx. DM, HTN, bipolar disorder and on medications. Alcohol use 1 6 pk 3 days ago. Drinks 1 - 6pk on weekend. Denies cocaine use. Exam Limitations: No Limitations - Ebola screening Have you traveled outside of the country in the last 21 days: No Have you had contact with anyone from an Ebola affected area: No Have you been sick,other than usual withdrawal symptoms: No Do you have a fever: No - Review of Systems Constitutional: Loss of Appetite (States los of appetitie because hasn't had methadone today.), Changes in sleep (Has difficulty falling asleep for 3 years. On meds.) EENT: reports: No Symptoms Reported Respiratory: reports: No Symptoms reported Cardiac: reports: No Symptoms Reported, Other (Hx. high blood pressure.) GI: reports: Nausea, Poor Appetite : reports: No Symptoms Reported Musculoskeletal: reports: No Symptoms Reported Integumentary: reports: No Symptoms Reported, Sweating (r/t withdrawal) Hematology: reports: No Symptoms Reported Psychiatric: reports: Orientated x3, Anxious, other (Hx bipolar. Denies current suicide or violent ideation.) Patient History - Patient Medical History Hx Anemia: No Hx Asthma: No Hx Chronic Obstructive Pulmonary Disease (COPD): No Hx Cancer: No Hx Cardiac Disorders: No Hx Congestive Heart Failure: No Hx Hypertension: Yes (ON ENALAPRIL 5 MGS PO DAILY) Hx Hypercholesterolemia: No Hx Pacemaker: No HX Cerebrovascular Accident: No Hx Seizures: Yes (LAST 08/27/17) Hx Dementia: No Hx Diabetes: Yes (ON METFORMIN 500 MGS PO DAILY) Hx Gastrointestinal Disorders: No Hx Liver Disease: No Hx Genitourinary Disorders: No Hx Sexually Transmitted Disorders: No Hx Renal Disease (ESRD): No Hx Thyroid Disease: No Hx Human Immunodeficiency Virus (HIV): No (LAST 08/03 NEGATIVE) Hx Hepatitis C: Yes (TREATED WITH HARVONI ) Hx Depression: Yes (ANXIETY,INSOMNIA) Hx Suicide Attempt: Yes ([facility] 2011) Hx Bipolar Disorder: No Hx Schizophrenia: No - Patient Surgical History Past Surgical History: No Hx Neurologic Surgery: No Hx Cataract Extraction: No Hx Cardiac Surgery: No Hx Lung Surgery: No Hx Breast Surgery: No Hx Breast Biopsy: No Hx Abdominal Surgery: No Hx Appendectomy: No Hx Cholecystectomy: No Hx Genitourinary Surgery: No Hx Section: No Hx Orthopedic Surgery: No Anesthesia Reaction: No - PPD History Previous Implant?: Yes Documented Results: Negative w/proof Implanted On Prior [facility] Admission?: Yes Date: 08/29/17 Results: NEGATIVE PPD to be Administered?: No - Smoking Cessation Smoking history: Current every day smoker Have you smoked in the past 12 months: Yes Aproximately how many cigarettes per day: 20 Hx Chewing Tobacco Use: No Initiated information on smoking cessation: Yes 'Breaking Loose' booklet given: 11/20/17 - Substance & Tx. History Hx Alcohol Use: Yes (Has reduced use to 1 6 pk/week ) Hx Substance Use: Yes Substance Use Type: Alcohol, Heroin, Tranquilizers Hx Substance Use Treatment: Yes (Alcohol detox, on MMTP) - Substances Abused Heroin Route: Inhalation Frequency: Daily Amount used: 1 BUNDLE DAILY Age of first use: 19 Date of Last Use: 11/20/17 (Last methadone dose 11/19 - 90 mg) Alprazolam (Xanax) Route: Oral Frequency: Daily Amount used: 2 MG - 3-4 x DAILY Age of first use: 42 (past 6 months continuously) Date of Last Use: 11/18/17 Family Disease History - Family Disease History Family Disease History: Heart Disease: Mother (Hearth attack ), Respiratory: Sister (Asthma) Admission Physical Exam [facility] - Vital Signs Vital Signs: Vital Signs - 24 hr 11/20/17 13:20 Temperature 97.9 F Pulse Rate 64 Respiratory 19 Rate Blood Pressure 118/77 - Physical General Appearance: Yes: Tremorous, Sweating (Face and palms of hands) HEENTM: Yes: EOMI, Hearing grossly Normal, Normocephalic, Normal Voice, GOPI Respiratory: Yes: Chest Non-Tender, Lungs Clear, Normal Breath Sounds, No Respiratory Distress Neck: Yes: No masses,lesions,Nodules, Supple Breast: Yes: Breast Exam Deferred Cardiology: Yes: Regular Rhythm, Regular Rate Abdominal: Yes: Normal Bowel Sounds, Non Tender, Soft Genitourinary: Yes: Within Normal Limits Back: Yes: Normal Inspection Musculoskeletal: Yes: full range of Motion, Gait Steady Extremities: Yes: Normal Capillary Refill, Normal Inspection, Normal Range of Motion, Non-Tender Neurological: Yes: dental manager II-XII NML intact, Fully Oriented, Alert, Motor Strength 5/5 Integumentary: Yes: Normal Color, Dry (dry mucous membranes.), Warm - Diagnostic (1) Diabetes Current Visit: Yes Status: Chronic Qualifiers: Diabetes mellitus type: type 2 Diabetes mellitus complication status: without complication (2) Hypertension Current Visit: Yes Status: Chronic Qualifiers: Hypertension type: essential hypertension Qualified Code(s): I10 - Essential (primary) hypertension (3) Overweight (BMI 25.0-29.9) Current Visit: Yes Status: Chronic (4) Heroin abuse Current Visit: Yes Status: Chronic (5) Insomnia Current Visit: Yes Status: Chronic Qualifiers: Insomnia type: unspecified Qualified Code(s): G47.00 - Insomnia, unspecified (6) Methadone maintenance therapy patient Current Visit: Yes Status: Chronic (7) Nicotine dependence Current Visit: Yes Status: Acute Qualifiers: Nicotine product type: cigarettes Substance use status: in withdrawal Qualified Code(s): F17.213 - Nicotine dependence, cigarettes, with withdrawal (8) Uncomplicated sedative, hypnotic or anxiolytic withdrawal Current Visit: Yes Status: Acute (9) Alcohol dependence, uncomplicated Current Visit: No Status: Chronic (10) Dehydration Current Visit: Yes Status: Acute Cleared for Admission S - Detox or Rehab [facility] Level of Care: Medically Managed Detox Regimen/Protocol: Valium [facility] Breath Alcohol Content Breath Alcohol Content: 0 Urine Drug Screen - Results Drug Screen Negative: No Urine Drug Screen Results: OPI-Opiates, BZO-Benzodiazepines, MTD-Methadone
[2017-11-20] MEDS ORDERED: P-EPHED 60MG/TRIPROLIDI 2.5MG TABLET PO PRN (17:02)
[2017-11-20] MEDS ORDERED: MAG HYDROX/AL HYDROX/SIMETH 30 ML UNIT-DOSE CUP PO PRN (17:02)
[2017-11-20] MEDS ORDERED: LOPERAMIDE HCL 2 MG CAPSULE PO PRN (17:02)
[2017-11-20] MEDS ORDERED: MAGNESIUM CITRATE 300 ML BOTTLE PO PRN (17:02)
[2017-11-20] MEDS ORDERED: MENTHOL/PHENOL 1 EACH UD MM PRN (17:02)
[2017-11-20] MEDS ORDERED: guaiFENesin/D-METHORPHAN HB 10 ML UNIT-DOSE CUPS PO PRN (17:02)
[2017-11-20] MEDS ORDERED: IBUPROFEN 400 MG TABLET (FP) PO PRN (17:02)
[2017-11-20] MEDS ORDERED: hydrOXYzine PAMOATE 50 MG CAPSULE (FP) PO PRN (17:02)
[2017-11-20] MEDS ORDERED: MAGNESIUM HYDROX 2400MG/30ML ORAL SUSPENSION 30 ML CUP PO PRN (17:02)
[2017-11-20] MEDS ORDERED: NICOTINE POLACRILEX 2 MG GUM BUC PRN (17:02)
[2017-11-20] MEDS ORDERED: ACETAMINOPHEN 325 MG TABLET (FP) PO PRN (17:26)
[2017-11-20] MEDS ORDERED: diazePAM 5 MG TABLET PO PRN (17:26)
[2017-11-20] MEDS ORDERED: diazePAM 5 MG TABLET PO ONE (18:00)
[2017-11-20] MEDS ORDERED: cloNIDine HCL 0.1 MG TABLET PO ONE (18:00)
[2017-11-20] MEDS ORDERED: MELATONIN 5 MG TABLETS PO PRN (22:00)
[2017-11-20] MEDS ORDERED: THIAMINE HCL 100 MG TABLET (FP) PO SCH (22:00)
[2017-11-20 22:44] LABS: URINE APPEARANCE CLEAR; URINE BILIRUBIN NEGATIVE (<2.0 mg/dL); URINE COLOR DK YELLOW; URINE GLUCOSE (UA) NEGATIVE (NEGATIVE); URINE KETONE NEGATIVE (NEGATIVE)
[2017-11-20 22:45] LABS: URINE LEUK ESTERASE TRACE (NEGATIVE); URINE NITRITE NEGATIVE (NEGATIVE); URINE PROTEIN NEGATIVE (NEGATIVE); URINE UROBILINOGEN 4.0 E.U/dl mg/dL (0.2-1.0)
[2017-11-20 22:50] LABS: EPI CELLS 1 /HPF (FEW); URINE HYALINE CAST 3 /lpf
[2017-11-20 22:51] LABS: URINE MUCUS FEW
[2017-11-20] MEDS: diazePAM 5 MG TABLET PO SCH (22:51)
[2017-11-21] MEDS: diazePAM 5 MG TABLET PO SCH (05:59)
[2017-11-21] MEDS ORDERED: METHADONE HCL 10 MG TABLET PO SCH (06:00)
[2017-11-21] MEDS ORDERED: metFORMIN HCL 500 MG TABLET (FP) PO SCH (07:00)
[2017-11-21] MEDS ORDERED: METHADONE HCL 10 MG TABLET ONE (07:22)
[2017-11-21] MEDS ORDERED: METHADONE HCL 40 MG DISPERSABLE TABLET ONE (07:23)
[2017-11-21] MEDS ORDERED: METHADONE 80 MG, METHADONE 10 MG PO SCH (07:30)
[2017-11-21 09:17] VITALS: BP 106/69; PULSE 91; TEMP 97.6
[2017-11-21 09:56] LABS: HEMATOCRIT 37.3 % (35.4-49); HEMOGLOBIN 12.4 GM/dL (11.7-16.9); MCHC 33.2 g/dl (32.0-35.9); MEAN CELL VOLUME 87.3 fl (80-96); MEAN PLT VOLUME 9.7 fl (7.5-11.1); PLATELET COUNT 179 K/MM3 (134-434); RBC 4.28 M/mm3 (4.00-5.60); WHITE BLOOD COUNT 10.7 K/mm3 (4.0-10.0)
[2017-11-21] MEDS ORDERED: NICOTINE 21 MG/24 HOURS TOPICAL PATCH TD SCH (10:00)
[2017-11-21] MEDS ORDERED: ENALAPRIL MALEATE 5 MG TABLET (FP) PO SCH (10:00)
[2017-11-21] MEDS ORDERED: PRENATAL VITAMINS W/ FOLIC ACID TABLET (FP) PO SCH (10:00)
[2017-11-21 10:02] LABS: CHLORIDE 105 mmol/L (98-107); POTASSIUM 4.3 mmol/L (3.5-5.1); SODIUM 141 mmol/L (136-145)
[2017-11-21 10:11] LABS: ALBUMIN 3.8 g/dl (3.4-5.0); ALK PHOS 74 U/L (45-117); ANION GAP 7 (8-16); BILIRUBIN,TOTAL 0.4 mg/dL (0.2-1.0); BLOOD UREA NITROGEN 13 mg/dL (7-18); CALCIUM 8.6 mg/dL (8.5-10.1); CO2 29 mmol/L (21-32); GLUCOSE,RANDOM 104 mg/dL (74-106); SGOT/AST 13 U/L (15-37); SGPT/ALT 13 U/L (12-78); TOT PROT 7.3 g/dl (6.4-8.2)
--- NOTE | 2017-11-21 13:26 | EKG ---
Test Reason : Blood Pressure : / mmHG Vent. Rate : 057 BPM Atrial Rate : 057 BPM P-R Int : 150 ms QRS Dur : 106 ms QT Int : 450 ms P-R-T Axes : 044 045 028 degrees QTc Int : 438 ms SINUS BRADYCARDIA OTHERWISE NORMAL ECG NO PREVIOUS ECGS AVAILABLE Confirmed by MD Maciel, Ace ([id number]) on 11/21/2017 1:26:14 PM Referred By: Jairo Carrillo Confirmed By:Ace St MD
--- NOTE | 2017-11-21 16:50 | PN ---
[facility] CIWA - CIWA Score Nausea/Vomitin-No Nausea/No Vomiting Muscle Tremors: 2 Anxiety: 4-Mod. Anxious/Guarded Agitation: 4-Moderately Restless Paroxysmal Sweats: 3 Orientation: 0-Oriented Tacttile Disturbances: 2-Mild Itch/Numbness/Burn Auditory Disturbances: 0-None Visual Disturbances: 2-Mild Sensitivity Headache: 0-None Present CIWA-Ar Total Score: 17 BHS Progress Note (SOAP) Subjective: Anxious, Tremors, Sweating. Objective: PATIENT A & O X 3, OBSERVED AMBULATING ON UNIT. NO ACUTE DISTRESS. 11/21/17 16:49 Vital Signs Temperature 97.6 F 11/21/17 09:16 Pulse Rate 91 H 11/21/17 09:16 Respiratory Rate 20 11/21/17 09:16 Blood Pressure 106/69 11/21/17 09:16 O2 Sat by Pulse Oximetry (%) Laboratory Tests 11/20/17 11/20/17 11/21/17 15:18 22:20 05:58 WBC RBC Hgb Hct MCV MCH MCHC RDW Plt Count MPV Sodium Potassium Chloride Carbon Dioxide Anion Gap BUN Creatinine Creat Clearance w eGFR POC Glucometer 140 106 Random Glucose Calcium Total Bilirubin AST ALT Alkaline Phosphatase Total Protein Albumin Urine Color Dk yellow Urine Appearance Clear Urine pH 6.0 Ur Specific [place] 1.023 Urine Protein Negative Urine Glucose (UA) Negative Urine Ketones Negative Urine Blood Negative Urine Nitrite Negative Urine Bilirubin Negative Urine Urobilinogen 4.0 e.u/dl Ur Leukocyte Esterase Trace Urine WBC (Auto) 2 Urine RBC (Auto) 3 Ur Epithelial Cells 1 Hyaline Casts 3 Urine Mucus Few RPR Titer 11/21/17 11/21/17 11/21/17 07:00 07:00 07:00 WBC 10.7 H D RBC 4.28 Hgb 12.4 Hct 37.3 MCV 87.3 MCH 29.0 MCHC 33.2 RDW 16.0 H Plt Count 179 MPV 9.7 Sodium 141 Potassium 4.3 Chloride 105 Carbon Dioxide 29 Anion Gap 7 L BUN 13 Creatinine 1.0 D Creat Clearance w eGFR > 60 POC Glucometer Random Glucose 104 Calcium 8.6 Total Bilirubin 0.4 D AST 13 L D ALT 13 Alkaline Phosphatase 74 Total Protein 7.3 Albumin 3.8 Urine Color Urine Appearance Urine pH Ur Specific [place] Urine Protein Urine Glucose (UA) Urine Ketones Urine Blood Urine Nitrite Urine Bilirubin Urine Urobilinogen Ur Leukocyte Esterase Urine WBC (Auto) Urine RBC (Auto) Ur Epithelial Cells Hyaline Casts Urine Mucus RPR Titer Nonreactive LABS NOTED. Assessment: 11/21/17 16:49 WITHDRAWAL SYMPTOMS. Plan: CONTINUE DETOX.
--- NOTE | 2017-11-21 16:53 | DS ---
[facility] Detox Discharge Summary Admission Date: 11/20/17 Discharge Date: 11/21/17 - History Present History: Alcohol Dependence, Opioid Dependence, Sedative Dependence, MMTP Additional Comments: PATIENT HAS PERSONAL ISSUE TO ATTEND TO AND DOES NOT WISH TO STAY TO COMPLETE DETOX REGIMEN. RISKS OF LEAVING DETOX UNIT AGAINST MEDICAL ADVICE AND PRIOR TO COMPLETION OF DETOX REGIMEN EXPLAINED TO PATIENT. PATIENT ADVISED TO GO IMMEDIATELY TO NEAREST ER SHOULD ANY INTOLERABLE DETOX SYMPTOMS DEVELOP AT ANY TIME. PATIENT LEFT DETOX UNIT IN STABLE MEDICAL CONDITION. Pertinent Past History: MMTP, HTN, Type II DM, Hep C (Treated), History of Seizures, Insomnia, Nicotine dependence, Dehydration. - Physical Exam Results Vital Signs: Vital Signs Temperature 97.6 F 11/21/17 09:16 Pulse Rate 91 H 11/21/17 09:16 Respiratory Rate 20 11/21/17 09:16 Blood Pressure 106/69 11/21/17 09:16 O2 Sat by Pulse Oximetry (%) Pertinent Admission Physical Exam Findings: WITHDRAWAL SYMPTOMS. Laboratory Tests 11/20/17 11/20/17 11/21/17 15:18 22:20 05:58 WBC RBC Hgb Hct MCV MCH MCHC RDW Plt Count MPV Sodium Potassium Chloride Carbon Dioxide Anion Gap BUN Creatinine Creat Clearance w eGFR POC Glucometer 140 106 Random Glucose Calcium Total Bilirubin AST ALT Alkaline Phosphatase Total Protein Albumin Urine Color Dk yellow Urine Appearance Clear Urine pH 6.0 Ur Specific [place] 1.023 Urine Protein Negative Urine Glucose (UA) Negative Urine Ketones Negative Urine Blood Negative Urine Nitrite Negative Urine Bilirubin Negative Urine Urobilinogen 4.0 e.u/dl Ur Leukocyte Esterase Trace Urine WBC (Auto) 2 Urine RBC (Auto) 3 Ur Epithelial Cells 1 Hyaline Casts 3 Urine Mucus Few RPR Titer 11/21/17 11/21/17 11/21/17 07:00 07:00 07:00 WBC 10.7 H D RBC 4.28 Hgb 12.4 Hct 37.3 MCV 87.3 MCH 29.0 MCHC 33.2 RDW 16.0 H Plt Count 179 MPV 9.7 Sodium 141 Potassium 4.3 Chloride 105 Carbon Dioxide 29 Anion Gap 7 L BUN 13 Creatinine 1.0 D Creat Clearance w eGFR > 60 POC Glucometer Random Glucose 104 Calcium 8.6 Total Bilirubin 0.4 D AST 13 L D ALT 13 Alkaline Phosphatase 74 Total Protein 7.3 Albumin 3.8 Urine Color Urine Appearance Urine pH Ur Specific [place] Urine Protein Urine Glucose (UA) Urine Ketones Urine Blood Urine Nitrite Urine Bilirubin Urine Urobilinogen Ur Leukocyte Esterase Urine WBC (Auto) Urine RBC (Auto) Ur Epithelial Cells Hyaline Casts Urine Mucus RPR Titer Nonreactive LABS NOTED. - Treatment Hospital Course: Detoxed Safely - Medication Discharge Medications: Ambulatory Orders Metformin HCl [Glucophage] 500 mg PO DAILY 08/27/17 Bupropion HCl [Wellbutrin Xl -] 150 mg PO DAILY #30 tablet 08/28/17 Mirtazapine [Remeron -] 30 mg PO HS #30 tablet 08/28/17 Enalapril Maleate [Vasotec] 5 mg PO DAILY 30 Days #30 tablet 11/21/17 - Diagnosis (1) Cocaine dependence Status: Acute Qualifiers: Substance use status: uncomplicated Qualified Code(s): F14.20 - Cocaine dependence, uncomplicated (2) Dehydration Status: Acute (3) Nicotine dependence Status: Acute Qualifiers: Nicotine product type: cigarettes Substance use status: in withdrawal Qualified Code(s): F17.213 - Nicotine dependence, cigarettes, with withdrawal (4) Opioid dependence on agonist therapy Status: Acute (5) Uncomplicated sedative, hypnotic or anxiolytic withdrawal Status: Acute (6) Alcohol dependence, uncomplicated Status: Chronic (7) Hypertension Status: Chronic Qualifiers: Hypertension type: essential hypertension Qualified Code(s): I10 - Essential (primary) hypertension (8) Insomnia Status: Chronic Qualifiers: Insomnia type: unspecified Qualified Code(s): G47.00 - Insomnia, unspecified (9) Methadone maintenance therapy patient Status: Chronic (10) Overweight (BMI 25.0-29.9) Status: Chronic - AMA Did Patient Leave Against Medical Advice: Yes (PT HAD PERSONAL ISSUE AND DID NOT WISH TO STAY TO COMPLETE DETOX REGIMEN.)
[2017-11-22] MEDS ORDERED: diazePAM 5 MG TABLET PO SCH (10:00)
[2017-11-24] MEDS ORDERED: diazePAM 5 MG TABLET PO SCH (10:00)
== END 2017-11-21 09:15 | disposition left against medical advice (07) | DRG 770 ==
LOC: YASAS 12:42 → Y3N 17:32
PROVIDERS: ADMIT Internal Medicine; ATTEND Internal Medicine
PROC: HZ2ZZZZ Detoxification Services for Substance Abuse Treatment (ICD-10-PCS; principal; 2017-11-20)
DX: F11.20 Opioid dependence, uncomplicated (principal); F13.230 Sedative, hypnotic or anxiolytic dependence with withdrawal, uncomplicated; F10.20 Alcohol dependence, uncomplicated; F14.20 Cocaine dependence, uncomplicated; F17.213 Nicotine dependence, cigarettes, with withdrawal; F41.9 Anxiety disorder, unspecified; G47.00 Insomnia, unspecified; G40.909 Epilepsy, unspecified, not intractable, without status epilepticus; E86.0 Dehydration; I10 Essential (primary) hypertension; E11.9 Type 2 diabetes mellitus without complications; Z79.84 Long term (current) use of oral hypoglycemic drugs; E66.9 Obesity, unspecified; Z68.36 Body mass index [BMI] 36.0-36.9, adult; Z91.5 Personal history of self-harm
CPT/HCPCS: 36415; 80053; 81003; 81015; 82962; 85027; 86593; 93005; 93010; J0735

== ENCOUNTER 2019-02-04 08:22 | Inpatient (IN) | payer OTHER ==
[2019-02-04 09:37] VITALS: BMI 36.2
--- NOTE | 2019-02-04 09:59 | HP ---
CIWA Score Nausea/Vomitin Muscle Tremors: 2 Anxiety: 3 Agitation: 3 Paroxysmal Sweats: 1-Minimal Palms Moist Orientation: 0-Oriented Tacttile Disturbances: 1-Very Mild Itch/Numbness Auditory Disturbances: 0-None Visual Disturbances: 0-None Headache: 2-Mild CIWA-Ar Total Score: 14 - Admission Criteria [facility] Guidelines: Admission for Medically Managed Detox: Requires at least one of the followin. CIWA greater than 12 2. Seizures within the past 24 hours 3. Delirium tremens within the past 24 hours 4. Hallucinations within the past 24 hours 5. Acute intervention needed for co occurring medical disorder 6. Acute intervention needed for co occurring psychiatric disorder 7. Severe withdrawal that cannot be handled at a lower level of care (continued vomiting, continued diarrhea, abnormal vital signs) requiring intravenous medication and/or fluids 8. Admission ROS S - [facility] Chief Complaint: i need help to stop drinking alcohol,xanax,cocaine,marijuana ,mmp 100 mgs/day Allergies/Adverse Reactions: Allergies Allergy/AdvReac Type Severity Reaction Status Date / Time Fish Containing Products Allergy Severe Hives Verified 02/04/19 09:21 haloperidol [From Haldol] AdvReac Severe stiffness Verified 02/04/19 09:21 History of Present Illness: this 4 years old male with alcohol,xanax,cocaine and marijuana dependence, seeking detox,withdrawal symptom, mmtp 100 mgs/day,last medicated today denied seizure denied syncope type 2 dm multiple admissions in detox,last 02/09/18 to 02/10/18 not completed due to family problem smoke 1 pack/day,would like to have nicotine patch bipolar disorder no significant period of sobriety heroin abused hepatitis c treated Exam Limitations: No Limitations - Ebola screening Have you traveled outside of the country in the last 21 days: No Have you had contact with anyone from an Ebola affected area: No - Review of Systems Constitutional: Chills, Loss of Appetite, Malaise, Night Sweats, Changes in sleep, Weakness, Unintentional Wgt. Loss EENT: reports: No Symptoms Reported, Tearing, Nose Congestion Respiratory: reports: No Symptoms reported Cardiac: reports: No Symptoms Reported GI: reports: Diarrhea, Nausea, Vomiting, Abdominal cramping : reports: No Symptoms Reported Musculoskeletal: reports: Joint Pain, Muscle Pain Integumentary: reports: Dryness Neuro: reports: Headache, Tremors Endocrine: reports: No Symptoms Reported Hematology: reports: No Symptoms Reported Psychiatric: reports: No Sypmtoms Reported, Judgement Intact, Mood/Affect Appropiate, Orientated x3, other (bipolar disorde) Other Systems: Reviewed and Negative Patient History - Patient Medical History Hx Anemia: No Hx Asthma: No Hx Chronic Obstructive Pulmonary Disease (COPD): No Hx Cancer: No Hx Cardiac Disorders: No Hx Congestive Heart Failure: No Hx Hypertension: Yes (on med enalapril 5 mgs po daily) Hx Hypercholesterolemia: No Hx Pacemaker: No HX Cerebrovascular Accident: No Hx Seizures: No Hx Dementia: No Hx Diabetes: Yes (NIDDM on meftformin 500 mgs daily) Hx Gastrointestinal Disorders: No Hx Liver Disease: No Hx Genitourinary Disorders: No Hx Sexually Transmitted Disorders: No Hx Renal Disease (ESRD): No Hx Thyroid Disease: No Hx Human Immunodeficiency Virus (HIV): No (LAST 08/13 NEGATIVE) Hx Hepatitis C: Yes (TREATED WITH HARVONI ) Hx Depression: Yes Hx Suicide Attempt: No Hx Bipolar Disorder: Yes (on med) Hx Schizophrenia: No Other Medical History: no suicidal,no homicidal - Patient Surgical History Past Surgical History: No Hx Neurologic Surgery: No Hx Cataract Extraction: No Hx Cardiac Surgery: No Hx Lung Surgery: No Hx Breast Surgery: No Hx Breast Biopsy: No Hx Abdominal Surgery: No Hx Appendectomy: No Hx Cholecystectomy: No Hx Genitourinary Surgery: No Hx Section: No Hx Orthopedic Surgery: No Anesthesia Reaction: No - PPD History Previous Implant?: Yes Implanted On Prior [facility] Admission?: Yes Date: 08/29/17 Results: 0 mm PPD to be Administered?: No - Smoking Cessation Smoking history: Smoker current status UNK Have you smoked in the past 12 months: No Aproximately how many cigarettes per day: 20 Hx Chewing Tobacco Use: No Initiated information on smoking cessation: Yes 'Breaking Loose' booklet given: 02/04/19 - Substance & Tx. History Hx Alcohol Use: Yes Hx Substance Use: Yes Substance Use Type: Alcohol, Cocaine, Heroin, Tranquilizers Hx Substance Use Treatment: Yes ([facility] 02/09/18 to 02/10/18 not completed) - Substances abused Heroin Substance route: Inhalation Frequency: Daily Amount used: 3 bags Age of first use: 17 Date of last use: 01/28/19 Crack Substance route: Skin popping Frequency: Daily Amount used: 1 bag Age of first use: 43 Date of last use: 02/02/19 Benzodiazepine (Klonopin) Substance route: Oral Frequency: Daily Amount used: 6 tabs/day 12mgs/day Age of first use: 34 Date of last use: 02/04/19 Alprazolam (Xanax) Substance route: Oral Frequency: 3-6 times per week Amount used: 3 tabs 6 mgs Age of first use: 43 Date of last use: 02/02/19 Alcohol Substance route: Oral Frequency: Daily Amount used: 2 of 6 packs of 12 ozs of beer Age of first use: 13 Date of last use: 02/03/19 Family Disease History - Family Disease History Family Disease History: Heart Disease: Mother (Hearth attack ), Respiratory: Sister (Asthma) Admission Physical Exam [facility] - Vital Signs Vital Signs: Vital Signs - 24 hr 02/04/19 09:26 Temperature 98.3 F Pulse Rate 73 Respiratory 18 Rate Blood Pressure 138/79 - Physical General Appearance: Yes: Moderate Distress, Tremorous, Irritable, Sweating, Anxious HEENTM: Yes: Normal ENT Inspection, GOPI, Pharynx Normal Respiratory: Yes: Lungs Clear, Normal Breath Sounds, No Respiratory Distress Neck: Yes: Within Normal Limits, Supple, Trachea in good position Breast: Yes: Within Normal Limits Cardiology: Yes: Within Normal Limits, Regular Rhythm, Regular Rate, S1, S2 Abdominal: Yes: Within Normal Limits, Normal Bowel Sounds, Non Tender, Flat, Soft Genitourinary: Yes: Within Normal Limits Back: Yes: Muscle Spasm Musculoskeletal: Yes: full range of Motion, Back pain, Muscle Pain Extremities: Yes: Within Normal Limits, Normal Inspection, Normal Range of Motion Neurological: Yes: image archivist II-XII NML intact, Fully Oriented, Alert, Motor Strength 5/5 Integumentary: Yes: Dry Lymphatic: Yes: Within Normal Limits - Diagnostic (1) Uncomplicated sedative, hypnotic or anxiolytic withdrawal Current Visit: No Status: Acute (2) Cocaine dependence Current Visit: No Status: Acute Qualifiers: Substance use status: uncomplicated Qualified Code(s): F14.20 - Cocaine dependence, uncomplicated (3) Dehydration Current Visit: No Status: Acute (4) Nicotine dependence Current Visit: No Status: Acute Qualifiers: Nicotine product type: cigarettes Substance use status: in withdrawal Qualified Code(s): F17.213 - Nicotine dependence, cigarettes, with withdrawal (5) Hypertension Current Visit: No Status: Chronic Qualifiers: Hypertension type: essential hypertension Qualified Code(s): I10 - Essential (primary) hypertension (6) Methadone maintenance therapy patient Current Visit: No Status: Chronic (7) Alcohol dependence, uncomplicated Current Visit: No Status: Chronic (8) Heroin abuse Current Visit: Yes Status: Acute Cleared for Admission S - Detox or Rehab [facility] Level of Care: Medically Managed Detox Regimen/Protocol: Valium Inpatient Rehab Admission - Rehab Decision to Admit Inpatient rehab admission?: No
[2019-02-04] MEDS ORDERED: MAGNESIUM CITRATE 300 ML BOTTLE PO PRN (10:12)
[2019-02-04] MEDS ORDERED: ACETAMINOPHEN 325 MG TABLET (FP) PO PRN ×2 (10:12)
[2019-02-04] MEDS ORDERED: MAGNESIUM HYDROX 2400MG/30ML ORAL SUSPENSION 30 ML CUP PO PRN (10:12)
[2019-02-04] MEDS ORDERED: MENTHOL/PHENOL 1 EACH UD MM PRN (10:12)
[2019-02-04] MEDS ORDERED: BISMUTH SUBSALICYLATE 262 MG/15 ML BTL PO PRN (10:12)
[2019-02-04] MEDS ORDERED: hydrOXYzine HCL 25 MG TABLET (FP) PO PRN (10:12)
[2019-02-04] MEDS ORDERED: ENALAPRIL MALEATE 5 MG TABLET (FP) PO ONE (10:25)
[2019-02-04] MEDS: diazePAM 5 MG TABLET PO PRN ×2 (11:48→17:57)
[2019-02-04] MEDS: NICOTINE 21 MG/24 HOURS TOPICAL PATCH TD SCH (11:50)
[2019-02-04 13:07] LABS: HEMATOCRIT 34.8 % (35.4-49); HEMOGLOBIN 11.5 GM/dL (11.7-16.9); MCH 29.3 pg (25.7-33.7); MCHC 33.1 g/dl (32.0-35.9); MEAN CELL VOLUME 88.3 fl (80-96); MEAN PLT VOLUME 9.7 fl (7.5-11.1); PLATELET COUNT 126 K/MM3 (134-434); RBC 3.95 M/mm3 (4.00-5.60); RDW 16.4 % (11.9-15.9); WHITE BLOOD COUNT 7.4 K/mm3 (4.0-10.0)
[2019-02-04 13:14] LABS: ALBUMIN 4.1 g/dl (3.4-5.0); BILIRUBIN,TOTAL 0.3 mg/dL (0.2-1); BLOOD UREA NITROGEN 19.1 mg/dL (7-18); CALCIUM 8.7 mg/dL (8.5-10.1); CREATININE 1.1 mg/dL (0.55-1.3); POTASSIUM 3.8 mmol/L (3.5-5.1); TOT PROT 7.1 g/dl (6.4-8.2)
[2019-02-04] MEDS: diazePAM 5 MG TABLET PO SCH ×2 (13:32→22:40)
[2019-02-04] MEDS: METHOCARBAMOL 500 MG TABLET PO PRN (22:40)
[2019-02-04] MEDS: MELATONIN 5 MG TABLETS PO PRN (22:40)
[2019-02-04] MEDS: THIAMINE HCL 100 MG TABLET (FP) PO SCH (22:40)
[2019-02-05] MEDS ORDERED: METHADONE HCL 10 MG TABLET ONE (04:19)
[2019-02-05] MEDS ORDERED: METHADONE HCL 40 MG DISPERSABLE TABLET ONE (04:20)
[2019-02-05] MEDS: METHADONE 80 MG, METHADONE 20 MG PO SCH (05:10)
[2019-02-05] MEDS: diazePAM 5 MG TABLET PO SCH ×3 (05:11→22:15)
[2019-02-05] MEDS ORDERED: METHADONE HCL 10 MG TABLET PO SCH (06:00)
[2019-02-05] MEDS: metFORMIN HCL 500 MG TABLET (FP) PO SCH (08:22)
[2019-02-05] MEDS: diazePAM 5 MG TABLET PO PRN ×2 (08:58→20:46)
[2019-02-05] MEDS: PRENATAL VITAMINS W/ FOLIC ACID TABLET (FP) PO SCH (09:00)
[2019-02-05] MEDS: ENALAPRIL MALEATE 5 MG TABLET (FP) PO SCH (09:00)
[2019-02-05] MEDS: NICOTINE 21 MG/24 HOURS TOPICAL PATCH TD SCH (11:04)
--- NOTE | 2019-02-05 12:30 | PN ---
[facility] CIWA - CIWA Score Nausea/Vomitin-Mild Nausea/No Vomiting Muscle Tremors: 3 Anxiety: 2 Agitation: 2 Paroxysmal Sweats: 2 Orientation: 0-Oriented Tacttile Disturbances: 0-None Auditory Disturbances: 1-Very Mild Visual Disturbances: 0-None Headache: 0-None Present CIWA-Ar Total Score: 11 S Progress Note (SOAP) Subjective: 44 years old male admitted on 02/04/19 for acute alcohol withdrawal sx management doing well with valium detox regimen received methadone 100 mg po today patient will be seen by psychiatrist that the patient is taking remoeron last dose unknown Objective: 02/05/19 12:31 Vital Signs Temperature 97.5 F L 02/05/19 09:21 Pulse Rate 73 02/05/19 09:21 Respiratory Rate 17 02/05/19 09:21 Blood Pressure 118/71 02/05/19 09:21 O2 Sat by Pulse Oximetry (%) Laboratory Last Values WBC 7.4 K/mm3 (4.0-10.0) 02/04/19 10:15 RBC 3.95 M/mm3 (4.00-5.60) L 02/04/19 10:15 Hgb 11.5 GM/dL (11.7-16.9) L 02/04/19 10:15 Hct 34.8 % (35.4-49) L 02/04/19 10:15 MCV 88.3 fl (80-96) 02/04/19 10:15 MCH 29.3 pg (25.7-33.7) 02/04/19 10:15 MCHC 33.1 g/dl (32.0-35.9) 02/04/19 10:15 RDW 16.4 % (11.9-15.9) H 02/04/19 10:15 Plt Count 126 K/MM3 (134-434) L D 02/04/19 10:15 MPV 9.7 fl (7.5-11.1) 02/04/19 10:15 Sodium 145 mmol/L (136-145) 02/04/19 10:15 Potassium 3.8 mmol/L (3.5-5.1) 02/04/19 10:15 Chloride 107 mmol/L (98-107) 02/04/19 10:15 Carbon Dioxide 32 mmol/L (21-32) 02/04/19 10:15 Anion Gap 5 MMOL/L (8-16) L 02/04/19 10:15 BUN 19.1 mg/dL (7-18) H 02/04/19 10:15 Creatinine 1.1 mg/dL (0.55-1.3) 02/04/19 10:15 Est GFR (CKD-EPI)AfAm 94.79 02/04/19 10:15 Est GFR (CKD-EPI)NonAf 81.78 02/04/19 10:15 POC Glucometer 96 UNITS (80-120) 02/05/19 05:09 Random Glucose 146 mg/dL (74-106) H 02/04/19 10:15 Calcium 8.7 mg/dL (8.5-10.1) 02/04/19 10:15 Total Bilirubin 0.3 mg/dL (0.2-1) 02/04/19 10:15 AST 26 U/L (15-37) 02/04/19 10:15 ALT 30 U/L (13-61) 02/04/19 10:15 Alkaline Phosphatase 67 U/L (45-117) 02/04/19 10:15 Total Protein 7.1 g/dl (6.4-8.2) 02/04/19 10:15 Albumin 4.1 g/dl (3.4-5.0) 02/04/19 10:15 RPR Titer Nonreactive (NONREACTIVE) 02/04/19 10:15 HIV 1&2 Ag/Ab, 4th Gen Non reactive (Non Reactive) 02/04/19 10:00 HIV 1&2 Antibody Screen Cancelled 02/04/19 10:15 HIV P24 Antigen Cancelled 02/04/19 10:15 lab noted alert oriented x 3 denies dizziness denies poly uria Assessment: 02/05/19 12:32 alcohol withdrawal sx Plan: continue valium detox regimen
--- NOTE | 2019-02-05 12:39 | CONSULT ---
[facility] Psychiatric Consult - Data Date of interview: 02/05/19 Admission source: [facility] Identifying data: Readmission to [facility] for this 44 y/o male self- referred for detoxification (alcohol, cocaine, xanax, heroin). Examined at [address] [place] [address]. Patient is , a father of one, homeless, unemployed and supported on welfare. Substance Abuse History: Confirmed by patient in this interview. Details in current [facility] report as follows : Smoking history: Smoker current status UNK. Have you smoked in the past 12 months: No. Aproximately how many cigarettes per day: 20. Hx Chewing Tobacco Use: No. Initiated information on smoking cessation: Yes. 'Breaking Loose' booklet given: 02/04/19. - Substance & Tx. History. Hx Alcohol Use: Yes. Hx Substance Use: Yes. Substance Use Type: Alcohol, Cocaine, Heroin, Tranquilizers. Hx Substance Use Treatment: Yes ([facility] 02/09/18 to 02/10/18 not completed). - Substances abused. Heroin. Substance route: Inhalation. Frequency: Daily. Amount used: 3 bags. Age of first use: 17. Date of last use: 01/28/19. Crack. Substance route: Skin popping. Frequency: Daily. Amount used: 1 bag. Age of first use: 43. Date of last use: 02/02/19. Benzodiazepine (Klonopin). Substance route: Oral. Frequency: Daily. Amount used: 6 tabs/day 12mgs/day. Age of first use: 34. Date of last use: 02/04/19. Alprazolam (Xanax). Substance route: Oral. Frequency: 3-6 times per week. Amount used: 3 tabs 6 mgs. Age of first use: 43. Date of last use: 02/02/19. Alcohol. Substance route: Oral. Frequency : Daily. Amount used: 2 of 6 packs of 12 ozs of beer. Age of first use: 13. Date of last use: 02/03/19 Medical History: Medical,profile is remarkable for diabetes mellitus, hepatitis C, a distant antecedent withdrawal-related seizures and hypertension. Psychiatric History: Patient admits to three psychiatric hospitalizations (no recall of names of institutions). Reportedly dagnosed with Bipolar Disorder. Mr Dick indicates that he is prescribed mirtazapine + clonazepam + wellbutrin (doses not recalled). He is currently on methadone maintenance (100 mg/day) at the [facility] program in the [place]. Patient admits to a history of one suicide attempt (self-mutilation). Physical/Sexual Abuse/Trauma History: Patient denies. Additional Comment: No toxicology available for review. Psychiatric Findings - Problem List ([place] 1, 2,3) (1) Uncomplicated sedative, hypnotic or anxiolytic withdrawal Status: Acute (2) Opioid dependence on agonist therapy Status: Chronic (3) Alcohol dependence, uncomplicated Status: Acute (4) Cocaine dependence Status: Chronic Qualifiers: Substance use status: uncomplicated Qualified Code(s): F14.20 - Cocaine dependence, uncomplicated (5) Nicotine dependence Status: Chronic Qualifiers: Nicotine product type: cigarettes Substance use status: in withdrawal Qualified Code(s): F17.213 - Nicotine dependence, cigarettes, with withdrawal (6) Substance induced mood disorder Status: Chronic (7) History of bipolar disorder Status: Chronic (8) Insomnia Status: Chronic Qualifiers: Insomnia type: unspecified Qualified Code(s): G47.00 - Insomnia, unspecified (9) Non-compliance Status: Chronic - Initial Treatment Plan Initial Treatment Plan: Psychoeducation. Sleep hygiene. Detoxification. AA/NA meetings. Groups. Support. Medications : remeron 15 mg po hs. Side effects/ benefits discussed with the patient. Mr Dick is in agreement with this plan of care. Observation.
[2019-02-05 19:35] LABS: PH,URINE 7.5 (5.0-8.0); URINE APPEARANCE CLEAR; URINE BILIRUBIN NEGATIVE (NEGATIVE); URINE COLOR YELLOW; URINE GLUCOSE (UA) NEGATIVE (NEGATIVE); URINE KETONE TRACE (NEGATIVE); URINE LEUK ESTERASE NEGATIVE (NEGATIVE); URINE NITRITE NEGATIVE (NEGATIVE); URINE PROTEIN NEGATIVE (NEGATIVE)
[2019-02-05] MEDS: IBUPROFEN 400 MG TABLET (FP) PO PRN (22:14)
[2019-02-05] MEDS: METHOCARBAMOL 500 MG TABLET PO PRN (22:14)
[2019-02-05] MEDS: MIRTAZAPINE 15 MG TABLET (FP) PO SCH (22:14)
[2019-02-05] MEDS: THIAMINE HCL 100 MG TABLET (FP) PO SCH (22:14)
[2019-02-06] MEDS ORDERED: METHADONE HCL 40 MG DISPERSABLE TABLET ONE (05:03)
[2019-02-06] MEDS ORDERED: METHADONE HCL 10 MG TABLET ONE (05:03)
[2019-02-06] MEDS: METHADONE 80 MG, METHADONE 20 MG PO SCH (05:16)
[2019-02-06] MEDS: diazePAM 5 MG TABLET PO SCH ×2 (05:17→17:00)
[2019-02-06] MEDS: metFORMIN HCL 500 MG TABLET (FP) PO SCH (07:52)
[2019-02-06] MEDS: ENALAPRIL MALEATE 5 MG TABLET (FP) PO SCH (09:47)
[2019-02-06] MEDS: PRENATAL VITAMINS W/ FOLIC ACID TABLET (FP) PO SCH (09:47)
[2019-02-06] MEDS: diazePAM 5 MG TABLET PO PRN ×2 (09:47→22:28)
[2019-02-06] MEDS: NICOTINE 21 MG/24 HOURS TOPICAL PATCH TD SCH (09:54)
--- NOTE | 2019-02-06 13:28 | PN ---
S CIWA - CIWA Score Nausea/Vomitin-Mild Nausea/No Vomiting Muscle Tremors: 2 Anxiety: 1-Mildly Anxious Agitation: 2 Paroxysmal Sweats: 1-Minimal Palms Moist Orientation: 0-Oriented Tacttile Disturbances: 0-None Auditory Disturbances: 0-None Visual Disturbances: 0-None Headache: 0-None Present CIWA-Ar Total Score: 7 S Progress Note (SOAP) Subjective: 44 years old male admitted on 02/04/19 for acute benzo withdrawal sx management doing well with valium detox protocol less anxious mild tremor Objective: 02/06/19 13:28 Vital Signs Temperature 96.5 F L 02/06/19 13:26 Pulse Rate 67 02/06/19 13:26 Respiratory Rate 18 02/06/19 13:26 Blood Pressure 150/73 02/06/19 13:26 O2 Sat by Pulse Oximetry (%) 02/06/19 13:31 bp elevation increase enalapril to 10 mg po daily Assessment: 02/06/19 13:32 mild alcohol withdrawal sx Plan: continue valium detox regimen
[2019-02-06] MEDS ORDERED: cloNIDine HCL 0.1 MG TABLET PO PRN (13:30)
[2019-02-06] MEDS ORDERED: ENALAPRIL MALEATE 5 MG TABLET (FP) PO ONE (14:00)
[2019-02-06] MEDS: IBUPROFEN 400 MG TABLET (FP) PO PRN (16:55)
[2019-02-06] MEDS: THIAMINE HCL 100 MG TABLET (FP) PO SCH (22:28)
[2019-02-06] MEDS: MIRTAZAPINE 15 MG TABLET (FP) PO SCH (22:28)
[2019-02-06] MEDS: MELATONIN 5 MG TABLETS PO PRN (22:29)
[2019-02-07] MEDS ORDERED: METHADONE HCL 10 MG TABLET ONE (04:47)
[2019-02-07] MEDS ORDERED: METHADONE HCL 40 MG DISPERSABLE TABLET ONE (04:48)
[2019-02-07] MEDS: METHADONE 80 MG, METHADONE 20 MG PO SCH (05:09)
[2019-02-07] MEDS: ENALAPRIL MALEATE 10 MG TABLET (FP) PO SCH (05:31)
[2019-02-07] MEDS ORDERED: diazePAM 5 MG TABLET PO ONE (06:00)
[2019-02-07] MEDS: metFORMIN HCL 500 MG TABLET (FP) PO SCH (07:58)
[2019-02-07] MEDS: PRENATAL VITAMINS W/ FOLIC ACID TABLET (FP) PO SCH (10:20)
[2019-02-07] MEDS: diazePAM 5 MG TABLET PO PRN (10:20)
[2019-02-07] MEDS: NICOTINE 21 MG/24 HOURS TOPICAL PATCH TD SCH (10:20)
[2019-02-07] MEDS: MAG HYDROX/AL HYDROX/SIMETH 30 ML UNIT-DOSE CUP PO PRN (13:49)
--- NOTE | 2019-02-07 16:25 | PN ---
S CIWA - CIWA Score Nausea/Vomitin-Mild Nausea/No Vomiting Muscle Tremors: 2 Anxiety: 1-Mildly Anxious Agitation: 1-Slight > Activity Paroxysmal Sweats: No Perspiration Orientation: 0-Oriented Tacttile Disturbances: 0-None Auditory Disturbances: 0-None Visual Disturbances: 0-None Headache: 0-None Present CIWA-Ar Total Score: 5 S Progress Note (SOAP) Subjective: doing well with valium detox regimen social with peers in day room discuss aftercare [facility] Objective: 02/07/19 16:27 Vital Signs Temperature 99.1 F 02/07/19 13:44 Pulse Rate 75 02/07/19 13:44 Respiratory Rate 16 02/07/19 13:44 Blood Pressure 135/84 02/07/19 13:44 O2 Sat by Pulse Oximetry (%) Laboratory Last Values WBC 7.4 K/mm3 (4.0-10.0) 02/04/19 10:15 RBC 3.95 M/mm3 (4.00-5.60) L 02/04/19 10:15 Hgb 11.5 GM/dL (11.7-16.9) L 02/04/19 10:15 Hct 34.8 % (35.4-49) L 02/04/19 10:15 MCV 88.3 fl (80-96) 02/04/19 10:15 MCH 29.3 pg (25.7-33.7) 02/04/19 10:15 MCHC 33.1 g/dl (32.0-35.9) 02/04/19 10:15 RDW 16.4 % (11.9-15.9) H 02/04/19 10:15 Plt Count 126 K/MM3 (134-434) L D 02/04/19 10:15 MPV 9.7 fl (7.5-11.1) 02/04/19 10:15 Sodium 145 mmol/L (136-145) 02/04/19 10:15 Potassium 3.8 mmol/L (3.5-5.1) 02/04/19 10:15 Chloride 107 mmol/L (98-107) 02/04/19 10:15 Carbon Dioxide 32 mmol/L (21-32) 02/04/19 10:15 Anion Gap 5 MMOL/L (8-16) L 02/04/19 10:15 BUN 19.1 mg/dL (7-18) H 02/04/19 10:15 Creatinine 1.1 mg/dL (0.55-1.3) 02/04/19 10:15 Est GFR (CKD-EPI)AfAm 94.79 02/04/19 10:15 Est GFR (CKD-EPI)NonAf 81.78 02/04/19 10:15 POC Glucometer 87 UNITS (80-120) 02/07/19 05:10 Random Glucose 146 mg/dL (74-106) H 02/04/19 10:15 Calcium 8.7 mg/dL (8.5-10.1) 02/04/19 10:15 Total Bilirubin 0.3 mg/dL (0.2-1) 02/04/19 10:15 AST 26 U/L (15-37) 02/04/19 10:15 ALT 30 U/L (13-61) 02/04/19 10:15 Alkaline Phosphatase 67 U/L (45-117) 02/04/19 10:15 Total Protein 7.1 g/dl (6.4-8.2) 02/04/19 10:15 Albumin 4.1 g/dl (3.4-5.0) 02/04/19 10:15 Urine Color Yellow 02/05/19 13:05 Urine Appearance Clear 02/05/19 13:05 Urine pH 7.5 (5.0-8.0) D 02/05/19 13:05 Ur Specific [place] 1.029 (1.010-1.035) 02/05/19 13:05 Urine Protein Negative (NEGATIVE) 02/05/19 13:05 Urine Glucose (UA) Negative (NEGATIVE) 02/05/19 13:05 Urine Ketones Trace (NEGATIVE) H 02/05/19 13:05 Urine Blood Negative (NEGATIVE) 02/05/19 13:05 Urine Nitrite Negative (NEGATIVE) 02/05/19 13:05 Urine Bilirubin Negative (NEGATIVE) 02/05/19 13:05 Urine Urobilinogen 1.0 mg/dL (0.2-1.0) 02/05/19 13:05 Ur Leukocyte Esterase Negative (NEGATIVE) 02/05/19 13:05 RPR Titer Nonreactive (NONREACTIVE) 02/04/19 10:15 HIV 1&2 Ag/Ab, 4th Gen Non reactive (Non Reactive) 02/04/19 10:00 HIV 1&2 Antibody Screen Cancelled 02/04/19 10:15 HIV P24 Antigen Cancelled 02/04/19 10:15 lab noted Assessment: 02/07/19 16:27 benzo withdrawal sx alert oriented x 3 steady gait speech clearly coherently 02/07/19 16:29 hypertension Plan: continue benzo detox regimen lisinopril dosage increase patient tolerate well and effective
[2019-02-07] MEDS: IBUPROFEN 400 MG TABLET (FP) PO PRN (18:47)
[2019-02-07] MEDS: MIRTAZAPINE 15 MG TABLET (FP) PO SCH (22:39)
[2019-02-07] MEDS: THIAMINE HCL 100 MG TABLET (FP) PO SCH (22:39)
[2019-02-07] MEDS: METHOCARBAMOL 500 MG TABLET PO PRN (22:40)
[2019-02-08] MEDS ORDERED: METHADONE HCL 10 MG TABLET ONE (04:23)
[2019-02-08] MEDS ORDERED: METHADONE HCL 40 MG DISPERSABLE TABLET ONE (04:23)
[2019-02-08] MEDS: ENALAPRIL MALEATE 10 MG TABLET (FP) PO SCH (05:12)
[2019-02-08] MEDS: METHADONE 80 MG, METHADONE 20 MG PO SCH (05:12)
[2019-02-08] MEDS: metFORMIN HCL 500 MG TABLET (FP) PO SCH (07:50)
[2019-02-08 09:12] VITALS: BP 132/82; PULSE 80; TEMP 97
[2019-02-08] MEDS: MAG HYDROX/AL HYDROX/SIMETH 30 ML UNIT-DOSE CUP PO PRN (09:22)
[2019-02-08] MEDS: PRENATAL VITAMINS W/ FOLIC ACID TABLET (FP) PO SCH (10:35)
[2019-02-08] MEDS: NICOTINE 21 MG/24 HOURS TOPICAL PATCH TD SCH (10:35)
--- NOTE | 2019-02-08 11:29 | EKG ---
Test Reason : Blood Pressure : / mmHG Vent. Rate : 063 BPM Atrial Rate : 063 BPM P-R Int : 158 ms QRS Dur : 100 ms QT Int : 412 ms P-R-T Axes : 041 046 038 degrees QTc Int : 421 ms POOR DATA QUALITY, INTERPRETATION MAY BE ADVERSELY AFFECTED NORMAL SINUS RHYTHM NORMAL ECG WHEN COMPARED WITH ECG OF 20-NOV-2017 19:02, NO SIGNIFICANT CHANGE WAS FOUND Confirmed by REBA RUBIN, JAZMIN ([id number]) on 02/08/2019 11:28:52 AM Referred By: Confirmed By:JAZMIN BRITTON MD
--- NOTE | 2019-02-08 12:26 | DS ---
[facility] Detox Discharge Summary Admission Date: 02/04/19 Discharge Date: 02/08/19 - History Present History: Cocaine Dependence, Opioid Dependence, Sedative Dependence, MMTP Additional Comments: PATIENT GOING TO [facility] ([facility]) FOR AFTERCARE. PATIENT WAS DISCHARGED FROM DETOX UNIT TO BE TAKEN OVER TO REHAB UNIT IN STABLE MEDICAL CONDITION. Pertinent Past History: M.M.T.P., Type II DM, HTN, Nicotine Dependence, Bipolar Disorder, Hep C (Treated ), Dehydration, Insomnia. - Physical Exam Results Vital Signs: Vital Signs Temperature 97.0 F L 02/08/19 09:11 Pulse Rate 80 02/08/19 09:11 Respiratory Rate 18 02/08/19 09:11 Blood Pressure 132/82 02/08/19 09:11 O2 Sat by Pulse Oximetry (%) Pertinent Admission Physical Exam Findings: WITHDRAWAL SYMPTOMS. Laboratory Tests 02/04/19 02/04/19 02/04/19 10:00 10:15 10:15 WBC 7.4 RBC 3.95 L Hgb 11.5 L Hct 34.8 L MCV 88.3 MCH 29.3 MCHC 33.1 RDW 16.4 H Plt Count 126 L D MPV 9.7 Sodium 145 Potassium 3.8 Chloride 107 Carbon Dioxide 32 Anion Gap 5 L BUN 19.1 H Creatinine 1.1 Est GFR (CKD-EPI)AfAm 94.79 Est GFR (CKD-EPI)NonAf 81.78 POC Glucometer Random Glucose 146 H Calcium 8.7 Total Bilirubin 0.3 AST 26 ALT 30 Alkaline Phosphatase 67 Total Protein 7.1 Albumin 4.1 Urine Color Urine Appearance Urine pH Ur Specific [place] Urine Protein Urine Glucose (UA) Urine Ketones Urine Blood Urine Nitrite Urine Bilirubin Urine Urobilinogen Ur Leukocyte Esterase RPR Titer HIV 1&2 Ag/Ab, 4th Gen Non reactive HIV 1&2 Antibody Screen HIV P24 Antigen 02/04/19 02/04/19 02/04/19 10:15 10:15 10:34 WBC RBC Hgb Hct MCV MCH MCHC RDW Plt Count MPV Sodium Potassium Chloride Carbon Dioxide Anion Gap BUN Creatinine Est GFR (CKD-EPI)AfAm Est GFR (CKD-EPI)NonAf POC Glucometer 135 Random Glucose Calcium Total Bilirubin AST ALT Alkaline Phosphatase Total Protein Albumin Urine Color Urine Appearance Urine pH Ur Specific [place] Urine Protein Urine Glucose (UA) Urine Ketones Urine Blood Urine Nitrite Urine Bilirubin Urine Urobilinogen Ur Leukocyte Esterase RPR Titer Nonreactive HIV 1&2 Ag/Ab, 4th Gen HIV 1&2 Antibody Screen Cancelled HIV P24 Antigen Cancelled 02/04/19 02/05/19 02/05/19 16:48 05:09 13:05 WBC RBC Hgb Hct MCV MCH MCHC RDW Plt Count MPV Sodium Potassium Chloride Carbon Dioxide Anion Gap BUN Creatinine Est GFR (CKD-EPI)AfAm Est GFR (CKD-EPI)NonAf POC Glucometer 139 96 Random Glucose Calcium Total Bilirubin AST ALT Alkaline Phosphatase Total Protein Albumin Urine Color Yellow Urine Appearance Clear Urine pH 7.5 D Ur Specific [place] 1.029 Urine Protein Negative Urine Glucose (UA) Negative Urine Ketones Trace H Urine Blood Negative Urine Nitrite Negative Urine Bilirubin Negative Urine Urobilinogen 1.0 Ur Leukocyte Esterase Negative RPR Titer HIV 1&2 Ag/Ab, 4th Gen HIV 1&2 Antibody Screen HIV P24 Antigen 02/05/19 02/06/19 02/06/19 16:18 05:16 16:17 WBC RBC Hgb Hct MCV MCH MCHC RDW Plt Count MPV Sodium Potassium Chloride Carbon Dioxide Anion Gap BUN Creatinine Est GFR (CKD-EPI)AfAm Est GFR (CKD-EPI)NonAf POC Glucometer 106 81 82 Random Glucose Calcium Total Bilirubin AST ALT Alkaline Phosphatase Total Protein Albumin Urine Color Urine Appearance Urine pH Ur Specific [place] Urine Protein Urine Glucose (UA) Urine Ketones Urine Blood Urine Nitrite Urine Bilirubin Urine Urobilinogen Ur Leukocyte Esterase RPR Titer HIV 1&2 Ag/Ab, 4th Gen HIV 1&2 Antibody Screen HIV P24 Antigen 02/07/19 02/07/19 02/08/19 05:10 16:28 05:10 WBC RBC Hgb Hct MCV MCH MCHC RDW Plt Count MPV Sodium Potassium Chloride Carbon Dioxide Anion Gap BUN Creatinine Est GFR (CKD-EPI)AfAm Est GFR (CKD-EPI)NonAf POC Glucometer 87 106 83 Random Glucose Calcium Total Bilirubin AST ALT Alkaline Phosphatase Total Protein Albumin Urine Color Urine Appearance Urine pH Ur Specific [place] Urine Protein Urine Glucose (UA) Urine Ketones Urine Blood Urine Nitrite Urine Bilirubin Urine Urobilinogen Ur Leukocyte Esterase RPR Titer HIV 1&2 Ag/Ab, 4th Gen HIV 1&2 Antibody Screen HIV P24 Antigen LABS NOTED. - Treatment Hospital Course: Detox Protocol Followed, Detoxed Safely, Responded well, Discharged Condition Good, Rehab Referral Accepted Patient has Accepted a Rehab Referral to: [facility] ([place], [place]). - Medication Discharge Medications: Ambulatory Orders Metformin HCl [Glucophage] 500 mg PO DAILY 08/27/17 Bupropion HCl [Wellbutrin Xl -] 150 mg PO DAILY #30 tablet 08/28/17 Enalapril Maleate [Vasotec] 5 mg PO DAILY 30 Days #30 tablet 11/21/17 Mirtazapine [Remeron -] 15 mg PO HS 02/08/19 - Diagnosis (1) Dehydration Status: Acute (2) Uncomplicated sedative, hypnotic or anxiolytic withdrawal Status: Acute (3) Alcohol dependence, uncomplicated Status: Acute (4) Cocaine dependence Status: Chronic Qualifiers: Substance use status: uncomplicated Qualified Code(s): F14.20 - Cocaine dependence, uncomplicated (5) Heroin abuse Status: Chronic (6) Hypertension Status: Chronic Qualifiers: Hypertension type: essential hypertension Qualified Code(s): I10 - Essential (primary) hypertension (7) Methadone maintenance therapy patient Status: Chronic (8) Nicotine dependence Status: Chronic Qualifiers: Nicotine product type: cigarettes Substance use status: in withdrawal Qualified Code(s): F17.213 - Nicotine dependence, cigarettes, with withdrawal (9) History of bipolar disorder Status: Chronic (10) Insomnia Status: Chronic Qualifiers: Insomnia type: unspecified Qualified Code(s): G47.00 - Insomnia, unspecified (11) Non-compliance Status: Chronic (12) Substance induced mood disorder Status: Chronic - AMA Did Patient Leave Against Medical Advice: No [facility] CIWA - CIWA Score Nausea/Vomitin-No Nausea/No Vomiting Muscle Tremors: None Anxiety: 1-Mildly Anxious Agitation: 1-Slight > Activity Paroxysmal Sweats: No Perspiration Orientation: 0-Oriented Tacttile Disturbances: 0-None Auditory Disturbances: 0-None Visual Disturbances: 0-None Headache: 0-None Present CIWA-Ar Total Score: 2
== END 2019-02-08 11:05 | disposition other institution (70) | DRG 773 ==
LOC: YASAS 08:22 → Y3N 10:18
PROVIDERS: ADMIT Surgery; ATTEND Surgery
PROC: HZ2ZZZZ Detoxification Services for Substance Abuse Treatment (ICD-10-PCS; principal; 2019-02-04)
DX: F13.230 Sedative, hypnotic or anxiolytic dependence with withdrawal, uncomplicated (principal); F11.20 Opioid dependence, uncomplicated; F10.20 Alcohol dependence, uncomplicated; F14.20 Cocaine dependence, uncomplicated; F17.213 Nicotine dependence, cigarettes, with withdrawal; F19.24 Other psychoactive substance dependence with psychoactive substance-induced mood disorder; I10 Essential (primary) hypertension; E86.0 Dehydration; G47.00 Insomnia, unspecified; E11.9 Type 2 diabetes mellitus without complications; Z86.19 Personal history of other infectious and parasitic diseases; Z91.013 Allergy to seafood; Z91.19 Patient's noncompliance with other medical treatment and regimen; Z86.69 Personal history of other diseases of the nervous system and sense organs; Z79.84 Long term (current) use of oral hypoglycemic drugs
CPT/HCPCS: 36415; 80053; 81003; 82962; 85027; 86593; 87389; 93005; 93010; J0735

== ENCOUNTER 2019-02-08 11:05 | Inpatient (IN) | payer OTHER ==
[2019-02-08] MEDS ORDERED: MAGNESIUM CITRATE 300 ML BOTTLE PO PRN (12:36)
[2019-02-08] MEDS ORDERED: MAGNESIUM HYDROX 2400MG/30ML ORAL SUSPENSION 30 ML CUP PO PRN (12:36)
[2019-02-08] MEDS ORDERED: LOPERAMIDE HCL 2 MG CAPSULE PO PRN (12:36)
[2019-02-08] MEDS ORDERED: guaiFENesin 200 MG/10 ML 10 ML UNIT-DOSE CUPS PO PRN (12:36)
[2019-02-08] MEDS ORDERED: MENTHOL/PHENOL 1 EACH UD MM PRN (12:36)
[2019-02-08] MEDS ORDERED: P-EPHED 60MG/TRIPROLIDI 2.5MG TABLET PO PRN (12:36)
--- NOTE | 2019-02-08 12:41 | HP ---
[facility] Rehab Assess/Revision - Admission History Admitted to Rehab from: [facility] Date of Admission to Rehab: 02/08/2019 - Vital signs Vital Signs: Vital Signs Period Temp Pulse Resp BP Sys/Ballesteros Pulse Ox Last 24 Hr 98.7 F 69 18 117/74 - Findings Detox History & Physical reviewed: Yes Concur with findings: Yes Comments/Additional Findings: PATIENT'S MEDICAL / MEDICATION HISTORY REVIEWED PRIOR TO DISCHARGE FROM DETOX UNIT. PATIENT WAS DISCHARGED FROM DETOX UNIT TO BE TAKEN OVER TO REHAB UNIT IN STABLE MEDICAL CONDITION. Inpatient Rehab Admission - Rehab Decision to Admit Inpatient rehab admission?: Yes - Initial Determination Are CD services needed?: Yes Free of communicable disease: Yes Not in need of hospitalization: Yes - Rehab Admission Criteria Previous failed treatment: Yes Poor recovery environment: Yes Comorbidities: Yes Lacks judgement: No Patient is meeting Inpatient Rehab admission criteria:: Yes
--- NOTE | 2019-02-08 20:00 | PN ---
[facility] Progress Note Note: Psychiatry Attending's note : Patient is at [facility]. Remeron 15 mg po hs. Ordered. Continuity of care.
[2019-02-08] MEDS: MIRTAZAPINE 15 MG TABLET (FP) PO SCH (21:25)
[2019-02-08] MEDS: THIAMINE HCL 100 MG TABLET (FP) PO SCH (21:25)
[2019-02-09] MEDS ORDERED: METHADONE HCL 40 MG DISPERSABLE TABLET ONE (04:01)
[2019-02-09] MEDS ORDERED: METHADONE HCL 10 MG TABLET ONE (04:01)
[2019-02-09] MEDS ORDERED: METHADONE HCL 10 MG TABLET PO SCH (06:00)
[2019-02-09] MEDS: METHADONE 80 MG, METHADONE 20 MG PO SCH (06:24)
[2019-02-09] MEDS: metFORMIN HCL 500 MG TABLET (FP) PO SCH (07:31)
[2019-02-09] MEDS: NICOTINE 21 MG/24 HOURS TOPICAL PATCH TD SCH (09:53)
[2019-02-09] MEDS: PRENATAL VITAMINS W/ FOLIC ACID TABLET (FP) PO SCH (09:53)
[2019-02-09] MEDS: ENALAPRIL MALEATE 10 MG TABLET (FP) PO SCH (09:53)
[2019-02-09] MEDS ORDERED: hydrOXYzine PAMOATE 50 MG CAPSULE (FP) PO PRN (12:11)
[2019-02-09] MEDS: hydrOXYzine PAMOATE 25 MG CAPSULE (FP) PO PRN ×2 (14:31→20:30)
[2019-02-09] MEDS: THIAMINE HCL 100 MG TABLET (FP) PO SCH (21:10)
[2019-02-09] MEDS: MIRTAZAPINE 15 MG TABLET (FP) PO SCH (21:10)
[2019-02-10] MEDS ORDERED: METHADONE HCL 40 MG DISPERSABLE TABLET ONE (03:52)
[2019-02-10] MEDS ORDERED: METHADONE HCL 10 MG TABLET ONE (03:52)
[2019-02-10] MEDS: METHADONE 80 MG, METHADONE 20 MG PO SCH (06:02)
[2019-02-10] MEDS: hydrOXYzine PAMOATE 25 MG CAPSULE (FP) PO PRN ×2 (06:02→11:02)
[2019-02-10] MEDS: metFORMIN HCL 500 MG TABLET (FP) PO SCH (07:19)
[2019-02-10] MEDS: NICOTINE 21 MG/24 HOURS TOPICAL PATCH TD SCH (09:32)
[2019-02-10] MEDS: PRENATAL VITAMINS W/ FOLIC ACID TABLET (FP) PO SCH (09:32)
[2019-02-10] MEDS: ENALAPRIL MALEATE 10 MG TABLET (FP) PO SCH (09:32)
[2019-02-10] MEDS: MAG HYDROX/AL HYDROX/SIMETH 30 ML UNIT-DOSE CUP PO PRN (09:58)
[2019-02-10] MEDS: ACETAMINOPHEN 325 MG TABLET (FP) PO PRN (18:57)
[2019-02-10] MEDS: MIRTAZAPINE 15 MG TABLET (FP) PO SCH (21:57)
[2019-02-10] MEDS: THIAMINE HCL 100 MG TABLET (FP) PO SCH (21:57)
[2019-02-11] MEDS ORDERED: METHADONE HCL 40 MG DISPERSABLE TABLET ONE (04:03)
[2019-02-11] MEDS ORDERED: METHADONE HCL 10 MG TABLET ONE (04:03)
[2019-02-11] MEDS: METHADONE 80 MG, METHADONE 20 MG PO SCH (06:25)
[2019-02-11] MEDS: hydrOXYzine PAMOATE 25 MG CAPSULE (FP) PO PRN ×3 (06:25→18:36)
[2019-02-11] MEDS: metFORMIN HCL 500 MG TABLET (FP) PO SCH (07:11)
[2019-02-11] MEDS: PRENATAL VITAMINS W/ FOLIC ACID TABLET (FP) PO SCH (10:12)
[2019-02-11] MEDS: ENALAPRIL MALEATE 10 MG TABLET (FP) PO SCH (10:12)
[2019-02-11] MEDS: NICOTINE 21 MG/24 HOURS TOPICAL PATCH TD SCH (10:12)
[2019-02-11] MEDS: MAG HYDROX/AL HYDROX/SIMETH 30 ML UNIT-DOSE CUP PO PRN (10:14)
--- NOTE | 2019-02-11 12:52 | PN ---
[facility] Progress Note Note: Patient seen for c/o left rib area pain. Patient denies recent falls, injury to area. Patient states "it hurts to breathe in at times. Only motrin helps the pain a little" Vital Signs (72 hours) 02/09/19 02/09/19 02/09/19 00:30 03:30 06:57 Temperature 97.9 F Pulse Rate 68 Respiratory 18 20 18 Rate Blood Pressure 158/84 02/09/19 02/10/19 02/10/19 10:33 00:30 03:30 Temperature Pulse Rate 82 Respiratory 18 18 Rate Blood Pressure 128/78 02/10/19 02/11/19 02/11/19 09:30 00:30 03:30 Temperature Pulse Rate 79 Respiratory 18 18 Rate Blood Pressure 166/66 02/11/19 02/11/19 06:00 09:30 Temperature 98.8 F Pulse Rate 70 83 Respiratory 20 18 Rate Blood Pressure 158/90 130/80 Laboratory Tests 02/09/19 02/09/19 02/10/19 06:23 17:07 06:01 POC Glucometer 89 109 87 02/10/19 02/11/19 16:53 06:23 POC Glucometer 131 95 PE: alert and oriented x 3 skin warm and dry neck supple, no jvd neg resp distress left rib area without ecchymosis, redness +tenderness upon palpation ext full rom, no visible edema A/P: left sided rib pain Will order order bilateral rib series continue motrin monitor clinically
[2019-02-11] MEDS: ACETAMINOPHEN 325 MG TABLET (FP) PO PRN (12:53)
[2019-02-11] MEDS: MIRTAZAPINE 15 MG TABLET (FP) PO SCH (21:27)
[2019-02-11] MEDS: THIAMINE HCL 100 MG TABLET (FP) PO SCH (21:27)
[2019-02-12] MEDS ORDERED: METHADONE HCL 10 MG TABLET ONE (04:04)
[2019-02-12] MEDS ORDERED: METHADONE HCL 40 MG DISPERSABLE TABLET ONE (04:04)
[2019-02-12] MEDS: METHADONE 80 MG, METHADONE 20 MG PO SCH (05:53)
[2019-02-12] MEDS: hydrOXYzine PAMOATE 25 MG CAPSULE (FP) PO PRN ×3 (05:53→19:32)
[2019-02-12] MEDS: metFORMIN HCL 500 MG TABLET (FP) PO SCH (06:43)
[2019-02-12] MEDS: ENALAPRIL MALEATE 10 MG TABLET (FP) PO SCH (09:45)
[2019-02-12] MEDS: ACETAMINOPHEN 325 MG TABLET (FP) PO PRN (09:45)
[2019-02-12] MEDS: NICOTINE 21 MG/24 HOURS TOPICAL PATCH TD SCH (09:45)
[2019-02-12] MEDS: PRENATAL VITAMINS W/ FOLIC ACID TABLET (FP) PO SCH (09:45)
--- NOTE | 2019-02-12 10:26 | PN ---
[facility] Progress Note Note: Here for xray results: Pt complaints of pin point tenderness of L 5 th rib area- mid clavicular line, worse with deep breath- xray done yesterday. Prelim review by me shows no abnormalities, official review pending. pain meds, warm compress for pain relief
[2019-02-12] MEDS: THIAMINE HCL 100 MG TABLET (FP) PO SCH (21:13)
[2019-02-12] MEDS: MIRTAZAPINE 15 MG TABLET (FP) PO SCH (21:13)
[2019-02-13] MEDS ORDERED: METHADONE HCL 10 MG TABLET ONE (04:20)
[2019-02-13] MEDS ORDERED: METHADONE HCL 40 MG DISPERSABLE TABLET ONE (04:20)
[2019-02-13] MEDS: hydrOXYzine PAMOATE 25 MG CAPSULE (FP) PO PRN ×3 (06:11→19:08)
[2019-02-13] MEDS: METHADONE 80 MG, METHADONE 20 MG PO SCH (06:12)
[2019-02-13] MEDS: metFORMIN HCL 500 MG TABLET (FP) PO SCH (07:03)
[2019-02-13] MEDS: NICOTINE 21 MG/24 HOURS TOPICAL PATCH TD SCH (09:42)
[2019-02-13] MEDS: ENALAPRIL MALEATE 10 MG TABLET (FP) PO SCH (09:42)
[2019-02-13] MEDS: PRENATAL VITAMINS W/ FOLIC ACID TABLET (FP) PO SCH (09:42)
[2019-02-13] MEDS: ACETAMINOPHEN 325 MG TABLET (FP) PO PRN (09:43)
[2019-02-13] MEDS: MIRTAZAPINE 15 MG TABLET (FP) PO SCH (21:00)
[2019-02-13] MEDS: THIAMINE HCL 100 MG TABLET (FP) PO SCH (21:00)
[2019-02-14] MEDS ORDERED: METHADONE HCL 10 MG TABLET ONE (05:35)
[2019-02-14] MEDS ORDERED: METHADONE HCL 40 MG DISPERSABLE TABLET ONE (05:35)
[2019-02-14] MEDS: hydrOXYzine PAMOATE 25 MG CAPSULE (FP) PO PRN ×3 (06:06→21:56)
[2019-02-14] MEDS: METHADONE 80 MG, METHADONE 20 MG PO SCH (06:06)
[2019-02-14] MEDS ORDERED: METHADONE 80 MG, METHADONE 20 MG PO SCH (07:19)
[2019-02-14] MEDS: metFORMIN HCL 500 MG TABLET (FP) PO SCH (07:39)
[2019-02-14] MEDS: NICOTINE 21 MG/24 HOURS TOPICAL PATCH TD SCH (09:28)
[2019-02-14] MEDS: ENALAPRIL MALEATE 10 MG TABLET (FP) PO SCH (09:28)
[2019-02-14] MEDS: PRENATAL VITAMINS W/ FOLIC ACID TABLET (FP) PO SCH (09:28)
[2019-02-14] MEDS: CYCLOBENZAPRINE HCL 5 MG TABLET PO PRN ×2 (09:29→21:57)
[2019-02-14] MEDS: THIAMINE HCL 100 MG TABLET (FP) PO SCH (21:56)
[2019-02-14] MEDS: MIRTAZAPINE 15 MG TABLET (FP) PO SCH (21:56)
[2019-02-15] MEDS ORDERED: METHADONE HCL 40 MG DISPERSABLE TABLET ONE (05:50)
[2019-02-15] MEDS ORDERED: METHADONE HCL 10 MG TABLET ONE (05:50)
[2019-02-15] MEDS: hydrOXYzine PAMOATE 25 MG CAPSULE (FP) PO PRN ×3 (06:11→19:41)
[2019-02-15] MEDS: METHADONE 80 MG, METHADONE 20 MG PO SCH (06:11)
[2019-02-15] MEDS: metFORMIN HCL 500 MG TABLET (FP) PO SCH (07:03)
[2019-02-15] MEDS: PRENATAL VITAMINS W/ FOLIC ACID TABLET (FP) PO SCH (09:49)
[2019-02-15] MEDS: ENALAPRIL MALEATE 10 MG TABLET (FP) PO SCH (09:49)
[2019-02-15] MEDS: NICOTINE 21 MG/24 HOURS TOPICAL PATCH TD SCH (09:50)
[2019-02-15] MEDS: ACETAMINOPHEN 325 MG TABLET (FP) PO PRN (16:31)
[2019-02-15] MEDS: THIAMINE HCL 100 MG TABLET (FP) PO SCH (21:07)
[2019-02-15] MEDS: MIRTAZAPINE 15 MG TABLET (FP) PO SCH (21:07)
[2019-02-16] MEDS ORDERED: METHADONE HCL 40 MG DISPERSABLE TABLET ONE (03:46)
[2019-02-16] MEDS ORDERED: METHADONE HCL 10 MG TABLET ONE (03:46)
[2019-02-16] MEDS: METHADONE 80 MG, METHADONE 20 MG PO SCH (06:07)
[2019-02-16] MEDS: hydrOXYzine PAMOATE 25 MG CAPSULE (FP) PO PRN ×3 (06:08→20:05)
[2019-02-16] MEDS: metFORMIN HCL 500 MG TABLET (FP) PO SCH (07:05)
[2019-02-16] MEDS: PRENATAL VITAMINS W/ FOLIC ACID TABLET (FP) PO SCH (10:05)
[2019-02-16] MEDS: ACETAMINOPHEN 325 MG TABLET (FP) PO PRN (10:05)
[2019-02-16] MEDS: NICOTINE 21 MG/24 HOURS TOPICAL PATCH TD SCH (10:05)
[2019-02-16] MEDS: ENALAPRIL MALEATE 10 MG TABLET (FP) PO SCH (10:05)
[2019-02-16] MEDS: MAG HYDROX/AL HYDROX/SIMETH 30 ML UNIT-DOSE CUP PO PRN (14:03)
[2019-02-16] MEDS: MIRTAZAPINE 15 MG TABLET (FP) PO SCH (21:10)
[2019-02-16] MEDS: THIAMINE HCL 100 MG TABLET (FP) PO SCH (21:10)
[2019-02-16] MEDS: MELATONIN 5 MG TABLETS PO PRN (21:10)
[2019-02-17] MEDS ORDERED: METHADONE HCL 40 MG DISPERSABLE TABLET ONE (03:45)
[2019-02-17] MEDS ORDERED: METHADONE HCL 10 MG TABLET ONE (03:45)
[2019-02-17] MEDS: METHADONE 80 MG, METHADONE 20 MG PO SCH (06:07)
[2019-02-17] MEDS: hydrOXYzine PAMOATE 25 MG CAPSULE (FP) PO PRN ×3 (06:07→17:46)
[2019-02-17] MEDS: metFORMIN HCL 500 MG TABLET (FP) PO SCH (07:33)
[2019-02-17] MEDS: PRENATAL VITAMINS W/ FOLIC ACID TABLET (FP) PO SCH (09:35)
[2019-02-17] MEDS: ENALAPRIL MALEATE 10 MG TABLET (FP) PO SCH (09:35)
[2019-02-17] MEDS: NICOTINE 21 MG/24 HOURS TOPICAL PATCH TD SCH (09:35)
[2019-02-17] MEDS: MELATONIN 5 MG TABLETS PO PRN (21:24)
[2019-02-17] MEDS: THIAMINE HCL 100 MG TABLET (FP) PO SCH (21:24)
[2019-02-17] MEDS: MIRTAZAPINE 15 MG TABLET (FP) PO SCH (21:24)
[2019-02-18] MEDS ORDERED: METHADONE HCL 10 MG TABLET ONE (05:28)
[2019-02-18] MEDS ORDERED: METHADONE HCL 40 MG DISPERSABLE TABLET ONE (05:28)
[2019-02-18] MEDS: hydrOXYzine PAMOATE 25 MG CAPSULE (FP) PO PRN ×3 (06:08→17:25)
[2019-02-18] MEDS: METHADONE 80 MG, METHADONE 20 MG PO SCH (06:08)
[2019-02-18] MEDS: metFORMIN HCL 500 MG TABLET (FP) PO SCH (07:04)
[2019-02-18] MEDS: ENALAPRIL MALEATE 10 MG TABLET (FP) PO SCH (10:51)
[2019-02-18] MEDS: PRENATAL VITAMINS W/ FOLIC ACID TABLET (FP) PO SCH (10:51)
[2019-02-18] MEDS: NICOTINE 21 MG/24 HOURS TOPICAL PATCH TD SCH (10:52)
[2019-02-18] MEDS: MIRTAZAPINE 15 MG TABLET (FP) PO SCH (21:43)
[2019-02-18] MEDS: THIAMINE HCL 100 MG TABLET (FP) PO SCH (21:43)
[2019-02-19] MEDS ORDERED: METHADONE HCL 40 MG DISPERSABLE TABLET ONE (05:37)
[2019-02-19] MEDS ORDERED: METHADONE HCL 10 MG TABLET ONE (05:37)
[2019-02-19] MEDS: METHADONE 80 MG, METHADONE 20 MG PO SCH (06:04)
[2019-02-19] MEDS: hydrOXYzine PAMOATE 25 MG CAPSULE (FP) PO PRN ×3 (06:04→16:37)
[2019-02-19] MEDS: metFORMIN HCL 500 MG TABLET (FP) PO SCH (07:07)
[2019-02-19] MEDS: ENALAPRIL MALEATE 10 MG TABLET (FP) PO SCH (09:49)
[2019-02-19] MEDS: PRENATAL VITAMINS W/ FOLIC ACID TABLET (FP) PO SCH (09:49)
[2019-02-19] MEDS: NICOTINE 21 MG/24 HOURS TOPICAL PATCH TD SCH (09:49)
[2019-02-19] MEDS: ACETAMINOPHEN 325 MG TABLET (FP) PO PRN (14:48)
[2019-02-19] MEDS: MIRTAZAPINE 15 MG TABLET (FP) PO SCH (21:01)
[2019-02-19] MEDS: THIAMINE HCL 100 MG TABLET (FP) PO SCH (21:01)
[2019-02-20] MEDS ORDERED: METHADONE HCL 10 MG TABLET ONE (05:36)
[2019-02-20] MEDS ORDERED: METHADONE HCL 40 MG DISPERSABLE TABLET ONE (05:36)
[2019-02-20] MEDS: hydrOXYzine PAMOATE 25 MG CAPSULE (FP) PO PRN ×3 (05:54→17:24)
[2019-02-20] MEDS: METHADONE 80 MG, METHADONE 20 MG PO SCH (05:55)
[2019-02-20] MEDS: metFORMIN HCL 500 MG TABLET (FP) PO SCH (06:55)
[2019-02-20] MEDS: PRENATAL VITAMINS W/ FOLIC ACID TABLET (FP) PO SCH (09:35)
[2019-02-20] MEDS: ENALAPRIL MALEATE 10 MG TABLET (FP) PO SCH (09:35)
[2019-02-20] MEDS: NICOTINE 21 MG/24 HOURS TOPICAL PATCH TD SCH (09:36)
[2019-02-20] MEDS: ACETAMINOPHEN 325 MG TABLET (FP) PO PRN (16:27)
[2019-02-20] MEDS: MIRTAZAPINE 15 MG TABLET (FP) PO SCH (21:40)
[2019-02-20] MEDS: THIAMINE HCL 100 MG TABLET (FP) PO SCH (21:40)
[2019-02-21] MEDS ORDERED: METHADONE HCL 10 MG TABLET ONE (04:01)
[2019-02-21] MEDS ORDERED: METHADONE HCL 40 MG DISPERSABLE TABLET ONE (04:01)
[2019-02-21] MEDS: metFORMIN HCL 500 MG TABLET (FP) PO SCH (06:10)
[2019-02-21] MEDS: METHADONE 80 MG, METHADONE 20 MG PO SCH (06:11)
[2019-02-21] MEDS: hydrOXYzine PAMOATE 25 MG CAPSULE (FP) PO PRN ×2 (06:13→17:47)
[2019-02-21 07:00] VITALS: TEMP 98.1
[2019-02-21] MEDS: PRENATAL VITAMINS W/ FOLIC ACID TABLET (FP) PO SCH (09:48)
[2019-02-21] MEDS: ENALAPRIL MALEATE 10 MG TABLET (FP) PO SCH (09:48)
[2019-02-21] MEDS: NICOTINE 21 MG/24 HOURS TOPICAL PATCH TD SCH (09:48)
--- NOTE | 2019-02-21 17:47 | PN ---
S Progress Note Note: Patient is scheduled for discharge tomorrow. Scripts for 30 days supply of Remeron 15 mg/hs will be electronically transmitted to [facility] at [address] [place] [id number]
[2019-02-21] MEDS: MIRTAZAPINE 15 MG TABLET (FP) PO SCH (21:14)
[2019-02-21] MEDS: THIAMINE HCL 100 MG TABLET (FP) PO SCH (21:14)
[2019-02-22] MEDS ORDERED: METHADONE HCL 40 MG DISPERSABLE TABLET ONE (05:40)
[2019-02-22] MEDS ORDERED: METHADONE HCL 10 MG TABLET ONE (05:40)
[2019-02-22] MEDS: hydrOXYzine PAMOATE 25 MG CAPSULE (FP) PO PRN (05:44)
[2019-02-22] MEDS ORDERED: METHADONE 80 MG, METHADONE 20 MG PO SCH (06:00)
[2019-02-22] MEDS: metFORMIN HCL 500 MG TABLET (FP) PO SCH (07:02)
[2019-02-22 07:06] VITALS: BP 153/88; PULSE 93
[2019-02-22] MEDS: ENALAPRIL MALEATE 10 MG TABLET (FP) PO SCH (09:38)
[2019-02-22] MEDS: NICOTINE 21 MG/24 HOURS TOPICAL PATCH TD SCH (09:39)
[2019-02-22] MEDS: PRENATAL VITAMINS W/ FOLIC ACID TABLET (FP) PO SCH (09:39)
--- NOTE | 2019-02-22 10:30 | DS ---
[facility] Rehab Discharge Summary - [facility] Rehab Discharge Summary Admission Date: 02/08/19 Discharge Date: 02/22/19 - History Present History: Alcohol dependence, Cocaine dependence, MMTP, Opioid dependence , Sedative dependence - Discharge Physical Exam Vital Signs: Vital Signs Temperature 98.1 F 02/22/19 07:06 Pulse Rate 93 H 02/22/19 07:06 Respiratory Rate 18 02/22/19 07:06 Blood Pressure 153/88 02/22/19 07:06 O2 Sat by Pulse Oximetry (%) Pertinent Admission Physical Exam Findings: ALERT AND ORIENTED X 3 SKIN WARM AND DRY CAR S1S2 RESP CTA BL EXT FULL ROM, NO TREMORS AMB AD ROBBI - Treatment Discharge Condition: Discharge condition good Hospital Course: PATIENT COMPLETED REHAB TODAY FOR OPIOD, BZO, COCAINE DEPENDENCE. PATIENT ATTENDED GROUP MEETINGS AND IS MOTIVATED TO MAINTAIN SOBRIETY. PATIENT IS MEDICALLY STABLE AND DENIES SI/HI. PATIENT SEEN AND TREATED BY PSYCHIATRY DURING HOSPITAL COURSE. - Medication Discharge Medications: Ambulatory Orders Bupropion HCl [Wellbutrin Xl -] 150 mg PO DAILY #30 tablet 08/28/17 Mirtazapine [Remeron -] 15 mg PO HS #30 tablet 02/21/19 Enalapril Maleate [Vasotec] 5 mg PO DAILY 30 Days #30 tablet 02/22/19 Metformin HCl [Glucophage] 500 mg PO DAILY #30 tablet 02/22/19 - Medication-Assisted Treatment (MAT) Medication-Assisted Treatment (MAT): Yes MAT Follow-up Referral: [facility]. APPT. 02/23/19 6:30AM - Discharge Instructions Diet, activity, other medical instructions: Diet: Activity: Other medical instructions: - Diagnosis (1) Alcohol dependence, uncomplicated Status: Chronic (2) Opioid dependence Status: Chronic Qualifiers: Substance use status: uncomplicated Qualified Code(s): F11.20 - Opioid dependence, uncomplicated (3) Uncomplicated sedative, hypnotic or anxiolytic withdrawal Status: Chronic (4) Cocaine dependence Status: Chronic Qualifiers: Substance use status: uncomplicated Qualified Code(s): F14.20 - Cocaine dependence, uncomplicated (5) Diabetes Status: Chronic Qualifiers: Diabetes mellitus type: type 2 Diabetes mellitus complication status: without complication (6) Hypertension Status: Chronic Qualifiers: Hypertension type: essential hypertension Qualified Code(s): I10 - Essential (primary) hypertension (7) Methadone maintenance therapy patient Status: Chronic (8) Nicotine dependence Status: Chronic Qualifiers: Nicotine product type: cigarettes Substance use status: uncomplicated Qualified Code(s): F17.210 - Nicotine dependence, cigarettes, uncomplicated - Follow-up Referral Minutes to complete discharge: 30 - AMA Did Patient Leave Against Medical Advice: No
== END 2019-02-22 09:00 | disposition home or self-care (01) | DRG 772 ==
LOC: YASAS 11:05 → Y3W 11:06
PROVIDERS: ADMIT Neuromusculoskeletal Medicine & OMM; ATTEND Neuromusculoskeletal Medicine & OMM
PROC: HZ42ZZZ Group Counseling for Substance Abuse Treatment, Cognitive-Behavioral (ICD-10-PCS; principal; 2019-02-08)
DX: F10.20 Alcohol dependence, uncomplicated (principal); F11.20 Opioid dependence, uncomplicated; F13.20 Sedative, hypnotic or anxiolytic dependence, uncomplicated; F14.20 Cocaine dependence, uncomplicated; F17.210 Nicotine dependence, cigarettes, uncomplicated; I10 Essential (primary) hypertension; E11.9 Type 2 diabetes mellitus without complications; Z79.84 Long term (current) use of oral hypoglycemic drugs; R07.81 Pleurodynia
CPT/HCPCS: 71111-TC-FY; 82962

== ENCOUNTER 2020-08-28 13:13 | Inpatient (IN) | payer OTHER ==
[2020-08-28 14:23] VITALS: BMI 38.5
[2020-08-28] MEDS ORDERED: IBUPROFEN 400 MG TABLET (FP) PO PRN (22:09)
[2020-08-28] MEDS ORDERED: LOPERAMIDE HCL 2 MG CAPSULE PO PRN (22:09)
[2020-08-28] MEDS ORDERED: MAGNESIUM HYDROX 2400MG/30ML ORAL SUSPENSION 30 ML CUP PO PRN (22:09)
[2020-08-28] MEDS ORDERED: P-EPHED 60MG/TRIPROLIDI 2.5MG TABLET PO PRN (22:09)
[2020-08-28] MEDS ORDERED: MAGNESIUM CITRATE 300 ML BOTTLE PO PRN (22:09)
[2020-08-28] MEDS ORDERED: NICOTINE POLACRILEX 2 MG GUM BC PRN (22:09)
[2020-08-28] MEDS ORDERED: hydrOXYzine PAMOATE 25 MG CAPSULE (FP) PO PRN (22:09)
[2020-08-28] MEDS ORDERED: guaiFENesin 200 MG/10 ML 10 ML UNIT-DOSE CUPS PO PRN (22:09)
[2020-08-28] MEDS ORDERED: ACETAMINOPHEN 325 MG TABLET (FP) PO PRN (22:09)
[2020-08-28] MEDS ORDERED: MELATONIN 5 MG TABLETS PO PRN (22:16)
[2020-08-28] MEDS ORDERED: MIRTAZAPINE 15 MG TABLET (FP) PO ONE (22:20)
[2020-08-28] MEDS ORDERED: METHADONE HCL 40 MG DISPERSABLE TABLET PO ONE (22:21)
[2020-08-28] MEDS ORDERED: TUBERCULIN PPD 5 TU/0.1ML VIAL ID ONE (23:35)
[2020-08-29] MEDS ORDERED: METHADONE HCL 10 MG TABLET PO SCH (09:45)
[2020-08-29] MEDS ORDERED: METHADONE HCL 10 MG TABLET ONE (09:51)
[2020-08-29] MEDS ORDERED: METHADONE HCL 40 MG DISPERSABLE TABLET ONE (09:52)
[2020-08-29] MEDS: PRENATAL VITAMINS W/ FOLIC ACID TABLET (FP) PO SCH (09:57)
[2020-08-29] MEDS: METHADONE 80 MG, METHADONE 20 MG PO SCH (09:59)
[2020-08-29] MEDS ORDERED: NICOTINE 7 MG/24 HOURS TOPICAL PATCH TD SCH ×2 (10:00)
[2020-08-29 10:27] LABS: HEMATOCRIT 31.3 % (35.4-49); HEMOGLOBIN 10.6 GM/dL (11.7-16.9); MCH 28.8 pg (25.7-33.7); MCHC 33.7 g/dl (32.0-35.9); MEAN CELL VOLUME 85.5 fl (80-96); MEAN PLT VOLUME 9.5 fl (7.5-11.1); PLATELET COUNT 169 K/MM3 (134-434); RBC 3.66 M/mm3 (4.00-5.60); RDW 17.1 % (11.9-15.9); WHITE BLOOD COUNT 8.3 K/mm3 (4.0-10.0)
[2020-08-29 10:44] LABS: CALCIUM 8.3 mg/dL (8.5-10.1)
[2020-08-29 10:45] LABS: ALBUMIN 3.4 g/dl (3.4-5.0); BLOOD UREA NITROGEN 18.8 mg/dL (7-18)
[2020-08-29 10:48] LABS: CREATININE 1.1 mg/dL (0.55-1.3)
[2020-08-29 10:49] LABS: BILIRUBIN,TOTAL 0.6 mg/dL (0.2-1)
[2020-08-29 10:50] LABS: TOT PROT 6.3 g/dl (6.4-8.2)
[2020-08-29 11:28] LABS: HIV INTERPRETATION NEGATIVE (NEGATIVE)
[2020-08-29] MEDS: MAG HYDROX/AL HYDROX/SIMETH 30 ML UNIT-DOSE CUP PO PRN ×2 (12:23→21:19)
[2020-08-29] MEDS: hydrOXYzine PAMOATE 25 MG CAPSULE (FP) PO PRN (21:19)
[2020-08-29] MEDS ORDERED: THIAMINE HCL 100 MG TABLET (FP) PO SCH (22:00)
[2020-08-29] MEDS ORDERED: MIRTAZAPINE 15 MG TABLET (FP) PO SCH (22:00)
[2020-08-30] MEDS: METHADONE 80 MG, METHADONE 20 MG PO SCH (06:12)
[2020-08-30] MEDS ORDERED: METHADONE HCL 10 MG TABLET ONE (06:12)
[2020-08-30] MEDS ORDERED: METHADONE HCL 40 MG DISPERSABLE TABLET ONE (06:12)
[2020-08-30 06:46] VITALS: BP 137/81; PULSE 73; TEMP 97.3
[2020-08-30] MEDS: PRENATAL VITAMINS W/ FOLIC ACID TABLET (FP) PO SCH (09:40)
[2020-08-30] MEDS: hydrOXYzine PAMOATE 25 MG CAPSULE (FP) PO PRN (09:41)
[2020-08-30] MEDS ORDERED: NICOTINE 21 MG/24 HOURS TOPICAL PATCH TD SCH (10:00)
[2020-08-30] MEDS ORDERED: FLU VACCINE (FLULAVAL) PF 60 MCG/0.5 ML SYRINGE 2020-2021 IM ONE (12:00)
== END 2020-08-30 16:00 | disposition left against medical advice (07) | DRG 770 ==
LOC: YASAS 13:13 → Y5N 22:26
PROVIDERS: ADMIT Allergy & Immunology; ATTEND Allergy & Immunology
PROC: HZ42ZZZ Group Counseling for Substance Abuse Treatment, Cognitive-Behavioral (ICD-10-PCS; principal; 2020-08-28)
DX: F11.20 Opioid dependence, uncomplicated (principal); F14.20 Cocaine dependence, uncomplicated; F13.20 Sedative, hypnotic or anxiolytic dependence, uncomplicated; F17.210 Nicotine dependence, cigarettes, uncomplicated; F19.24 Other psychoactive substance dependence with psychoactive substance-induced mood disorder; F31.9 Bipolar disorder, unspecified; G47.00 Insomnia, unspecified; E11.9 Type 2 diabetes mellitus without complications; Z79.84 Long term (current) use of oral hypoglycemic drugs; I10 Essential (primary) hypertension; B18.2 Chronic viral hepatitis C; E66.9 Obesity, unspecified; Z68.38 Body mass index [BMI] 38.0-38.9, adult; Z56.0 Unemployment, unspecified; Z88.8 Allergy status to other drugs, medicaments and biological substances; Z91.013 Allergy to seafood
CPT/HCPCS: 36415; 80053; 82962; 85027; 86780; 87389; C9803; G0008; Q2036; U0003

== ENCOUNTER 2020-09-30 10:29 | Inpatient (IN) | payer OTHER ==
[2020-09-30 11:14] VITALS: BMI 34.8
[2020-09-30] MEDS ORDERED: MAGNESIUM HYDROX 2400MG/30ML ORAL SUSPENSION 30 ML CUP PO PRN (12:10)
[2020-09-30] MEDS ORDERED: MAGNESIUM CITRATE 300 ML BOTTLE PO PRN (12:10)
[2020-09-30] MEDS ORDERED: cloNIDine HCL 0.1 MG TABLET PO PRN (12:10)
[2020-09-30] MEDS ORDERED: ACETAMINOPHEN 325 MG TABLET (FP) PO PRN ×2 (12:10)
[2020-09-30] MEDS ORDERED: ONDANSETRON *ODT* 4 MG TABLET SL PRN (12:10)
[2020-09-30] MEDS ORDERED: NICOTINE POLACRILEX 2 MG GUM BUC PRN (12:10)
[2020-09-30] MEDS ORDERED: MAG HYDROX/AL HYDROX/SIMETH 30 ML UNIT-DOSE CUP PO PRN (12:10)
[2020-09-30] MEDS ORDERED: METHADONE HCL 10 MG TABLET (FOR DETOX USE ONLY) PO ONE (12:10)
[2020-09-30] MEDS ORDERED: MENTHOL/PHENOL 1 EACH UD MM PRN (12:10)
[2020-09-30] MEDS ORDERED: ONDANSETRON *ODT* 4 MG TABLET ONE (12:46)
[2020-09-30] MEDS: NICOTINE 21 MG/24 HOURS TOPICAL PATCH TD SCH (13:35)
[2020-09-30] MEDS: metFORMIN HCL 500 MG TABLET (FP) PO SCH (13:35)
[2020-09-30] MEDS: METHOCARBAMOL 500 MG TABLET PO PRN (13:35)
[2020-09-30] MEDS: PRENATAL VITAMINS W/ FOLIC ACID TABLET (FP) PO SCH (13:36)
[2020-09-30] MEDS: hydrOXYzine PAMOATE 25 MG CAPSULE (FP) PO SCH ×3 (13:37→22:32)
[2020-09-30] MEDS: BISMUTH SUBSALICYLATE 262 MG/15 ML BTL PO PRN (13:38)
[2020-09-30] MEDS: diazePAM 5 MG TABLET PO PRN (13:41)
[2020-09-30] MEDS: ENALAPRIL MALEATE 5 MG TABLET PO SCH (13:43)
[2020-09-30 15:09] LABS: HEMATOCRIT 38.5 % (35.4-49); HEMOGLOBIN 12.9 GM/dL (11.7-16.9); MCH 28.7 pg (25.7-33.7); MCHC 33.5 g/dl (32.0-35.9); MEAN CELL VOLUME 85.9 fl (80-96); MEAN PLT VOLUME 9.6 fl (7.5-11.1); PLATELET COUNT 198 K/MM3 (134-434); RBC 4.49 M/mm3 (4.00-5.60); RDW 17.5 % (11.9-15.9); WHITE BLOOD COUNT 9.4 K/mm3 (4.0-10.0)
[2020-09-30 15:38] LABS: ALBUMIN 4.1 g/dl (3.4-5.0); BLOOD UREA NITROGEN 10.5 mg/dL (7-18); CALCIUM 9.5 mg/dL (8.5-10.1)
[2020-09-30 15:41] LABS: CREATININE 0.9 mg/dL (0.55-1.3)
[2020-09-30 15:43] LABS: BILIRUBIN,TOTAL 0.4 mg/dL (0.2-1); TOT PROT 7.3 g/dl (6.4-8.2)
[2020-09-30] MEDS: diazePAM 5 MG TABLET PO SCH ×2 (16:41→22:31)
[2020-09-30] MEDS: THIAMINE HCL 100 MG TABLET (FP) PO SCH (22:32)
[2020-09-30] MEDS: MELATONIN 5 MG TABLETS PO SCH (22:32)
[2020-10-01] MEDS: hydrOXYzine PAMOATE 25 MG CAPSULE (FP) PO SCH ×5 (05:17→22:36)
[2020-10-01] MEDS: diazePAM 5 MG TABLET PO SCH ×4 (05:18→22:36)
[2020-10-01] MEDS: IBUPROFEN 400 MG TABLET (FP) PO PRN (05:21)
[2020-10-01] MEDS: METHOCARBAMOL 500 MG TABLET PO PRN ×2 (05:22→12:22)
[2020-10-01] MEDS: metFORMIN HCL 500 MG TABLET (FP) PO SCH (07:00)
[2020-10-01] MEDS ORDERED: METHADONE (DETOX) 20 MG, METHADONE (DETOX) 5 MG PO ONE (10:00)
[2020-10-01] MEDS: amLODIPine BESYLATE 5 MG TABLET (FP) PO SCH (10:27)
[2020-10-01] MEDS: PRENATAL VITAMINS W/ FOLIC ACID TABLET (FP) PO SCH (10:27)
[2020-10-01] MEDS ORDERED: METHADONE HCL 10 MG TABLET (FOR DETOX USE ONLY) ONE (10:28)
[2020-10-01] MEDS ORDERED: METHADONE HCL 5 MG TABLET (FOR DETOX USE ONLY) ONE (10:28)
[2020-10-01] MEDS: NICOTINE 21 MG/24 HOURS TOPICAL PATCH TD SCH (10:31)
[2020-10-01 10:40] LABS: ALBUMIN 3.5 g/dl (3.4-5.0); BLOOD UREA NITROGEN 12.4 mg/dL (7-18); CALCIUM 9.3 mg/dL (8.5-10.1)
[2020-10-01 10:44] LABS: BILIRUBIN,TOTAL 0.4 mg/dL (0.2-1); TOT PROT 6.4 g/dl (6.4-8.2)
[2020-10-01] MEDS: ENALAPRIL MALEATE 5 MG TABLET PO SCH (11:43)
[2020-10-01] MEDS: BISMUTH SUBSALICYLATE 262 MG/15 ML BTL PO PRN (12:22)
[2020-10-01] MEDS: MELATONIN 5 MG TABLETS PO SCH (22:36)
[2020-10-01] MEDS: THIAMINE HCL 100 MG TABLET (FP) PO SCH (22:36)
[2020-10-02] MEDS: diazePAM 5 MG TABLET PO SCH ×3 (05:15→22:38)
[2020-10-02] MEDS: hydrOXYzine PAMOATE 25 MG CAPSULE (FP) PO SCH ×5 (05:15→22:39)
[2020-10-02] MEDS: metFORMIN HCL 500 MG TABLET (FP) PO SCH (06:05)
[2020-10-02] MEDS: NICOTINE 21 MG/24 HOURS TOPICAL PATCH TD SCH (09:43)
[2020-10-02] MEDS: METHOCARBAMOL 500 MG TABLET PO PRN ×2 (09:43→17:26)
[2020-10-02] MEDS: amLODIPine BESYLATE 5 MG TABLET (FP) PO SCH (09:43)
[2020-10-02] MEDS: PRENATAL VITAMINS W/ FOLIC ACID TABLET (FP) PO SCH (09:43)
[2020-10-02] MEDS: ENALAPRIL MALEATE 5 MG TABLET PO SCH (09:45)
[2020-10-02] MEDS ORDERED: METHADONE HCL 10 MG TABLET (FOR DETOX USE ONLY) PO ONE (10:00)
[2020-10-02] MEDS: THIAMINE HCL 100 MG TABLET (FP) PO SCH (22:39)
[2020-10-02] MEDS: MELATONIN 5 MG TABLETS PO SCH (22:39)
[2020-10-03] MEDS: diazePAM 5 MG TABLET PO SCH ×2 (05:22→17:23)
[2020-10-03] MEDS: METHOCARBAMOL 500 MG TABLET PO PRN ×3 (05:23→17:24)
[2020-10-03] MEDS: hydrOXYzine PAMOATE 25 MG CAPSULE (FP) PO SCH ×5 (05:23→21:44)
[2020-10-03] MEDS: IBUPROFEN 400 MG TABLET (FP) PO PRN (05:23)
[2020-10-03] MEDS: metFORMIN HCL 500 MG TABLET (FP) PO SCH (07:06)
[2020-10-03] MEDS ORDERED: METHADONE HCL 10 MG TABLET (FOR DETOX USE ONLY) ONE (09:51)
[2020-10-03] MEDS ORDERED: METHADONE HCL 5 MG TABLET (FOR DETOX USE ONLY) ONE (09:52)
[2020-10-03] MEDS ORDERED: METHADONE (DETOX) 10 MG, METHADONE (DETOX) 5 MG PO ONE (10:00)
[2020-10-03] MEDS: diazePAM 5 MG TABLET PO PRN (10:04)
[2020-10-03] MEDS: ENALAPRIL MALEATE 5 MG TABLET PO SCH (10:04)
[2020-10-03] MEDS: NICOTINE 21 MG/24 HOURS TOPICAL PATCH TD SCH (10:05)
[2020-10-03] MEDS: PRENATAL VITAMINS W/ FOLIC ACID TABLET (FP) PO SCH (10:05)
[2020-10-03] MEDS: amLODIPine BESYLATE 5 MG TABLET (FP) PO SCH (10:05)
[2020-10-03 10:11] LABS: SARS-CoV-2 NAA Not Detected (Not Detected)
[2020-10-03] MEDS: THIAMINE HCL 100 MG TABLET (FP) PO SCH (21:44)
[2020-10-03] MEDS: MELATONIN 5 MG TABLETS PO SCH (21:44)
[2020-10-04] MEDS ORDERED: MASKS NR ONE (05:20)
[2020-10-04] MEDS: hydrOXYzine PAMOATE 25 MG CAPSULE (FP) PO SCH ×5 (05:23→22:22)
[2020-10-04] MEDS: METHOCARBAMOL 500 MG TABLET PO PRN ×3 (05:24→22:22)
[2020-10-04] MEDS ORDERED: diazePAM 5 MG TABLET PO ONE (06:00)
[2020-10-04] MEDS: metFORMIN HCL 500 MG TABLET (FP) PO SCH (06:11)
[2020-10-04] MEDS: amLODIPine BESYLATE 5 MG TABLET (FP) PO SCH (09:49)
[2020-10-04] MEDS: NICOTINE 21 MG/24 HOURS TOPICAL PATCH TD SCH (09:49)
[2020-10-04] MEDS: PRENATAL VITAMINS W/ FOLIC ACID TABLET (FP) PO SCH (09:50)
[2020-10-04] MEDS: ENALAPRIL MALEATE 5 MG TABLET PO SCH (09:50)
[2020-10-04] MEDS ORDERED: METHADONE HCL 10 MG TABLET (FOR DETOX USE ONLY) PO ONE (10:00)
[2020-10-04] MEDS: THIAMINE HCL 100 MG TABLET (FP) PO SCH (22:21)
[2020-10-04] MEDS: MELATONIN 5 MG TABLETS PO SCH (22:22)
[2020-10-05] MEDS: hydrOXYzine PAMOATE 25 MG CAPSULE (FP) PO SCH (05:26)
[2020-10-05] MEDS: IBUPROFEN 400 MG TABLET (FP) PO PRN (05:27)
[2020-10-05] MEDS: METHOCARBAMOL 500 MG TABLET PO PRN (05:27)
[2020-10-05] MEDS ORDERED: METHADONE HCL 5 MG TABLET (FOR DETOX USE ONLY) PO ONE (06:00)
[2020-10-05 06:30] VITALS: BP 118/78; PULSE 72; TEMP 96.4
[2020-10-05] MEDS: metFORMIN HCL 500 MG TABLET (FP) PO SCH (07:54)
== END 2020-10-05 08:40 | disposition other institution (70) | DRG 773 ==
LOC: YASAS 10:29 → Y3N 12:14
PROVIDERS: ADMIT Allergy & Immunology; ATTEND Allergy & Immunology
PROC: HZ2ZZZZ Detoxification Services for Substance Abuse Treatment (ICD-10-PCS; principal; 2020-09-30)
DX: F11.23 Opioid dependence with withdrawal (principal); F10.230 Alcohol dependence with withdrawal, uncomplicated; F13.230 Sedative, hypnotic or anxiolytic dependence with withdrawal, uncomplicated; F14.20 Cocaine dependence, uncomplicated; F12.20 Cannabis dependence, uncomplicated; F17.210 Nicotine dependence, cigarettes, uncomplicated; F19.24 Other psychoactive substance dependence with psychoactive substance-induced mood disorder; F31.9 Bipolar disorder, unspecified; I10 Essential (primary) hypertension; E11.9 Type 2 diabetes mellitus without complications; Z79.84 Long term (current) use of oral hypoglycemic drugs; E66.9 Obesity, unspecified; Z68.34 Body mass index [BMI] 34.0-34.9, adult; Z88.8 Allergy status to other drugs, medicaments and biological substances; Z91.013 Allergy to seafood; Z91.19 Patient's noncompliance with other medical treatment and regimen
CPT/HCPCS: 36415; 80053; 82962; 85027; 86780; 93005; 93010; C9803; J0735; Q0162; U0003; U0005

== ENCOUNTER 2021-08-30 11:32 | Inpatient (IN) | payer OTHER ==
[2021-08-30] MEDS ORDERED: cloNIDine HCL 0.1 MG TABLET PO PRN (12:38)
[2021-08-30] MEDS ORDERED: NICOTINE 10 MG CARTRIDGE (INHALER) IH PRN (12:38)
[2021-08-30] MEDS ORDERED: MAGNESIUM CITRATE 300 ML BOTTLE PO PRN (12:38)
[2021-08-30] MEDS ORDERED: ACETAMINOPHEN 325 MG TABLET (FP) PO PRN ×2 (12:38)
[2021-08-30] MEDS ORDERED: diazePAM 5 MG TABLET PO PRN (12:38)
[2021-08-30] MEDS ORDERED: METHOCARBAMOL 500 MG TABLET PO PRN (12:38)
[2021-08-30] MEDS ORDERED: LOPERAMIDE HCL 2 MG CAPSULE PO PRN (12:38)
[2021-08-30] MEDS ORDERED: BISMUTH SUBSALICYLATE 262 MG/15 ML BTL PO PRN (12:38)
[2021-08-30] MEDS ORDERED: MENTHOL/PHENOL 1 EACH UD MM PRN (12:38)
[2021-08-30] MEDS ORDERED: MAGNESIUM HYDROX 2400MG/30ML ORAL SUSPENSION 30 ML CUP PO PRN (12:38)
[2021-08-30] MEDS ORDERED: MAG HYDROX/AL HYDROX/SIMETH 30 ML UNIT-DOSE CUP PO PRN (12:38)
[2021-08-30] MEDS ORDERED: IBUPROFEN 400 MG TABLET (FP) PO PRN (12:38)
[2021-08-30] MEDS ORDERED: NALOXONE (NARCAN) HCL 4 MG/0.1 ML SPRAY NS PRN (12:38)
[2021-08-30] MEDS ORDERED: ONDANSETRON *ODT* 4 MG TABLET SL PRN (12:38)
[2021-08-30 13:45] VITALS: BMI 39.9
[2021-08-30] MEDS: amLODIPine BESYLATE 5 MG TABLET (FP) PO SCH (15:36)
[2021-08-30] MEDS: metFORMIN HCL 500 MG TABLET (FP) PO SCH (15:36)
[2021-08-30] MEDS: hydrOXYzine PAMOATE 25 MG CAPSULE (FP) PO SCH ×3 (15:37→22:29)
[2021-08-30] MEDS: INSULIN SLIDING SCALE (NOVOLOG) 1 VIAL SQ SCH (17:01)
[2021-08-30] MEDS: diazePAM 5 MG TABLET PO SCH ×2 (18:10→22:29)
[2021-08-30] MEDS: THIAMINE HCL 100 MG TABLET (FP) PO SCH (22:29)
[2021-08-30] MEDS: MELATONIN 5 MG TABLETS PO SCH (22:29)
[2021-08-31] MEDS ORDERED: methaDONE HCL 10 MG TABLET PO SCH (07:45)
[2021-08-31] MEDS: diazePAM 5 MG TABLET PO SCH ×4 (07:47→22:36)
[2021-08-31] MEDS: hydrOXYzine PAMOATE 25 MG CAPSULE (FP) PO SCH ×5 (07:48→22:37)
[2021-08-31] MEDS ORDERED: methaDONE HCL 10 MG TABLET ONE (07:54)
[2021-08-31] MEDS ORDERED: methaDONE HCL 40 MG DISPERSABLE TABLET ONE (07:54)
[2021-08-31] MEDS: metFORMIN HCL 500 MG TABLET (FP) PO SCH (07:57)
[2021-08-31] MEDS: INSULIN SLIDING SCALE (NOVOLOG) 1 VIAL SQ SCH ×2 (08:06→17:13)
[2021-08-31] MEDS: diazePAM 5 MG TABLET PO ONE (10:17)
[2021-08-31] MEDS: amLODIPine BESYLATE 5 MG TABLET (FP) PO SCH (10:18)
[2021-08-31] MEDS: PRENATAL VITAMINS W/ FOLIC ACID TABLET (FP) PO SCH (10:18)
[2021-08-31 10:44] LABS: HEMATOCRIT 29.8 % (35.4-49); MCHC 33.7 g/dl (32.0-35.9); MEAN CELL VOLUME 89.1 fl (80-96); MEAN PLT VOLUME 8.8 fl (7.5-11.1); PLATELET COUNT 179 10^3/uL (134-434); RBC 3.34 M/mm3 (4.00-5.60); RDW 14.2 % (11.9-15.9); WHITE BLOOD COUNT 7.2 K/mm3 (4.0-10.0)
[2021-08-31 10:46] LABS: CALCIUM 8.1 mg/dL (8.5-10.1)
[2021-08-31 10:47] LABS: ALBUMIN 3.5 g/dl (3.4-5.0); BLOOD UREA NITROGEN 15.7 mg/dL (7-18)
[2021-08-31 10:52] LABS: BILIRUBIN,TOTAL 0.2 mg/dL (0.2-1)
[2021-08-31 10:53] LABS: TOT PROT 6.5 g/dl (6.4-8.2)
[2021-08-31 14:07] LABS: SARS-CoV-2 NAA Not Detected (Not Detected)
[2021-08-31] MEDS: MELATONIN 5 MG TABLETS PO SCH (22:37)
[2021-08-31] MEDS: THIAMINE HCL 100 MG TABLET (FP) PO SCH (22:38)
[2021-09-01] MEDS ORDERED: methaDONE HCL 10 MG TABLET ONE (04:17)
[2021-09-01] MEDS ORDERED: methaDONE HCL 40 MG DISPERSABLE TABLET ONE (04:18)
[2021-09-01] MEDS: hydrOXYzine PAMOATE 25 MG CAPSULE (FP) PO SCH ×5 (05:37→22:39)
[2021-09-01] MEDS: diazePAM 5 MG TABLET PO SCH ×3 (05:37→22:39)
[2021-09-01 06:08] LABS: SARS-CoV-2 NAA Not Detected (Not Detected)
[2021-09-01] MEDS: INSULIN SLIDING SCALE (NOVOLOG) 1 VIAL SQ SCH ×2 (06:39→18:39)
[2021-09-01] MEDS: metFORMIN HCL 500 MG TABLET (FP) PO SCH (06:39)
[2021-09-01] MEDS: PRENATAL VITAMINS W/ FOLIC ACID TABLET (FP) PO SCH (10:16)
[2021-09-01] MEDS: amLODIPine BESYLATE 5 MG TABLET (FP) PO SCH (10:16)
[2021-09-01] MEDS: THIAMINE HCL 100 MG TABLET (FP) PO SCH (22:39)
[2021-09-01] MEDS: MELATONIN 5 MG TABLETS PO SCH (22:39)
[2021-09-02] MEDS ORDERED: methaDONE HCL 10 MG TABLET ONE (04:35)
[2021-09-02] MEDS ORDERED: methaDONE HCL 40 MG DISPERSABLE TABLET ONE (04:35)
[2021-09-02] MEDS: diazePAM 5 MG TABLET PO SCH ×2 (05:34→18:33)
[2021-09-02] MEDS: hydrOXYzine PAMOATE 25 MG CAPSULE (FP) PO SCH ×5 (05:34→22:45)
[2021-09-02] MEDS: metFORMIN HCL 500 MG TABLET (FP) PO SCH (08:38)
[2021-09-02] MEDS: INSULIN SLIDING SCALE (NOVOLOG) 1 VIAL SQ SCH ×2 (08:39→17:26)
[2021-09-02] MEDS: amLODIPine BESYLATE 5 MG TABLET (FP) PO SCH (10:31)
[2021-09-02] MEDS: PRENATAL VITAMINS W/ FOLIC ACID TABLET (FP) PO SCH (10:32)
[2021-09-02 13:04] LABS: HEMATOCRIT 32.9 % (35.4-49); HEMOGLOBIN 11.2 GM/dL (11.7-16.9); MCH 30.7 pg (25.7-33.7); MCHC 34.1 g/dl (32.0-35.9); MEAN CELL VOLUME 90.1 fl (80-96); MEAN PLT VOLUME 9.8 fl (7.5-11.1); PLATELET COUNT 225 10^3/uL (134-434); RBC 3.65 M/mm3 (4.00-5.60); RDW 13.9 % (11.9-15.9); RETICULOCYTES 2.68 % (0.5-1.5); WHITE BLOOD COUNT 7.9 K/mm3 (4.0-10.0)
[2021-09-02] MEDS: THIAMINE HCL 100 MG TABLET (FP) PO SCH (22:45)
[2021-09-02] MEDS: MELATONIN 5 MG TABLETS PO SCH (22:45)
[2021-09-03] MEDS ORDERED: methaDONE HCL 10 MG TABLET ONE (04:53)
[2021-09-03] MEDS ORDERED: methaDONE HCL 40 MG DISPERSABLE TABLET ONE (04:53)
[2021-09-03] MEDS: diazePAM 5 MG TABLET PO ONE (05:39)
[2021-09-03] MEDS: INSULIN SLIDING SCALE (NOVOLOG) 1 VIAL SQ SCH (07:09)
[2021-09-03] MEDS: hydrOXYzine PAMOATE 25 MG CAPSULE (FP) PO SCH ×2 (07:10→10:12)
[2021-09-03] MEDS: metFORMIN HCL 500 MG TABLET (FP) PO SCH (07:10)
[2021-09-03 08:55] VITALS: BP 121/71; PULSE 85; TEMP 98.2
[2021-09-03] MEDS: amLODIPine BESYLATE 5 MG TABLET (FP) PO SCH (10:12)
[2021-09-03] MEDS: PRENATAL VITAMINS W/ FOLIC ACID TABLET (FP) PO SCH (10:12)
== END 2021-09-03 12:26 | disposition other institution (70) | DRG 773 ==
LOC: YASAS 11:32 → Y3N 13:52
PROVIDERS: ADMIT Allergy & Immunology; ATTEND Allergy & Immunology
PROC: HZ2ZZZZ Detoxification Services for Substance Abuse Treatment (ICD-10-PCS; principal; 2021-08-30)
DX: F11.23 Opioid dependence with withdrawal (principal); F10.230 Alcohol dependence with withdrawal, uncomplicated; F13.20 Sedative, hypnotic or anxiolytic dependence, uncomplicated; F14.20 Cocaine dependence, uncomplicated; F12.20 Cannabis dependence, uncomplicated; F17.210 Nicotine dependence, cigarettes, uncomplicated; F31.9 Bipolar disorder, unspecified; I10 Essential (primary) hypertension; Z88.8 Allergy status to other drugs, medicaments and biological substances; Z91.013 Allergy to seafood
CPT/HCPCS: 36415; 80053; 82607; 82746; 82962; 83540; 83550; 85027; 85045; 86780; C9803; J0735; U0003; U0005

== ENCOUNTER 2021-09-03 13:08 | Inpatient (IN) | payer OTHER ==
[2021-09-03] MEDS ORDERED: IBUPROFEN 400 MG TABLET (FP) PO PRN (14:48)
[2021-09-03] MEDS ORDERED: LOPERAMIDE HCL 2 MG CAPSULE PO PRN (14:48)
[2021-09-03] MEDS ORDERED: guaiFENesin 200 MG/10 ML 10 ML UNIT-DOSE CUPS PO PRN (14:48)
[2021-09-03] MEDS ORDERED: P-EPHED 60MG/TRIPROLIDI 2.5MG TABLET PO PRN (14:48)
[2021-09-03] MEDS ORDERED: MAGNESIUM CITRATE 300 ML BOTTLE PO PRN (14:48)
[2021-09-03] MEDS ORDERED: MENTHOL/PHENOL 1 EACH UD MM PRN (14:48)
[2021-09-03] MEDS ORDERED: ACETAMINOPHEN 325 MG TABLET (FP) PO PRN (14:48)
[2021-09-03] MEDS ORDERED: hydrOXYzine PAMOATE 25 MG CAPSULE (FP) PO PRN (14:48)
[2021-09-03] MEDS: OLANZapine 10 MG TABLET PO SCH (21:28)
[2021-09-03] MEDS: traZODone HCL 50 MG TABLET (FP) PO SCH (21:29)
[2021-09-03] MEDS: GABAPENTIN 400 MG CAPSULE PO SCH (21:29)
[2021-09-03] MEDS: LITHIUM CARBONATE 300 MG CAPSULE PO SCH (21:29)
[2021-09-03] MEDS: THIAMINE HCL 100 MG TABLET (FP) PO SCH (21:31)
[2021-09-03] MEDS: LISINOPRIL 10 MG TABLET PO SCH (21:31)
[2021-09-03] MEDS: FENOFIBRIC ACID 45 MG CAP PO SCH (21:31)
[2021-09-03] MEDS ORDERED: MELATONIN 5 MG TABLETS PO SCH (22:00)
[2021-09-03] MEDS ORDERED: traZODone HCL 150 MG TABLET PO SCH (22:00)
[2021-09-04] MEDS: metFORMIN HCL 500 MG TABLET (FP) PO SCH (06:22)
[2021-09-04] MEDS: GABAPENTIN 400 MG CAPSULE PO SCH ×3 (06:22→21:28)
[2021-09-04] MEDS ORDERED: methaDONE HCL 40 MG DISPERSABLE TABLET ONE (07:54)
[2021-09-04] MEDS ORDERED: methaDONE HCL 10 MG TABLET ONE (07:54)
[2021-09-04] MEDS ORDERED: methaDONE HCL 40 MG DISPERSABLE TABLET PO SCH (10:00)
[2021-09-04] MEDS: amLODIPine BESYLATE 5 MG TABLET (FP) PO SCH (10:09)
[2021-09-04] MEDS: ASPIRIN COATED 81 MG TABLET.EC PO SCH (10:09)
[2021-09-04] MEDS: LITHIUM CARBONATE 300 MG CAPSULE PO SCH ×2 (10:09→21:28)
[2021-09-04] MEDS: LISINOPRIL 10 MG TABLET PO SCH (10:09)
[2021-09-04] MEDS: PRENATAL VITAMINS W/ FOLIC ACID TABLET (FP) PO SCH (10:10)
[2021-09-04] MEDS: NICOTINE 7 MG/24 HOURS TOPICAL PATCH TD SCH (10:10)
[2021-09-04] MEDS: FENOFIBRIC ACID 45 MG CAP PO SCH (10:10)
[2021-09-04] MEDS: NICOTINE 10 MG CARTRIDGE (INHALER) IH PRN (10:10)
[2021-09-04] MEDS: OLANZapine 10 MG TABLET PO SCH (21:28)
[2021-09-04] MEDS: THIAMINE HCL 100 MG TABLET (FP) PO SCH (21:28)
[2021-09-04] MEDS: traZODone HCL 50 MG TABLET (FP) PO SCH (21:28)
[2021-09-05] MEDS ORDERED: methaDONE HCL 40 MG DISPERSABLE TABLET ONE (03:22)
[2021-09-05] MEDS ORDERED: methaDONE HCL 10 MG TABLET ONE (03:22)
[2021-09-05] MEDS: metFORMIN HCL 500 MG TABLET (FP) PO SCH (06:26)
[2021-09-05] MEDS: GABAPENTIN 400 MG CAPSULE PO SCH ×3 (06:26→21:31)
[2021-09-05] MEDS: ASPIRIN COATED 81 MG TABLET.EC PO SCH (09:49)
[2021-09-05] MEDS: LITHIUM CARBONATE 300 MG CAPSULE PO SCH ×2 (09:49→21:30)
[2021-09-05] MEDS: LISINOPRIL 10 MG TABLET PO SCH (09:49)
[2021-09-05] MEDS: FENOFIBRIC ACID 45 MG CAP PO SCH (09:49)
[2021-09-05] MEDS: amLODIPine BESYLATE 5 MG TABLET (FP) PO SCH (09:49)
[2021-09-05] MEDS: PRENATAL VITAMINS W/ FOLIC ACID TABLET (FP) PO SCH (09:50)
[2021-09-05] MEDS: NICOTINE 10 MG CARTRIDGE (INHALER) IH PRN (09:50)
[2021-09-05] MEDS: NICOTINE 7 MG/24 HOURS TOPICAL PATCH TD SCH (09:50)
[2021-09-05] MEDS: OLANZapine 10 MG TABLET PO SCH (21:30)
[2021-09-05] MEDS: THIAMINE HCL 100 MG TABLET (FP) PO SCH (21:31)
[2021-09-05] MEDS: traZODone HCL 50 MG TABLET (FP) PO SCH (21:31)
[2021-09-06] MEDS ORDERED: methaDONE HCL 10 MG TABLET ONE (03:22)
[2021-09-06] MEDS ORDERED: methaDONE HCL 40 MG DISPERSABLE TABLET ONE (03:22)
[2021-09-06] MEDS: metFORMIN HCL 500 MG TABLET (FP) PO SCH (06:22)
[2021-09-06] MEDS: GABAPENTIN 400 MG CAPSULE PO SCH ×3 (06:22→21:21)
[2021-09-06] MEDS: NICOTINE 10 MG CARTRIDGE (INHALER) IH PRN (07:35)
[2021-09-06] MEDS: ASPIRIN COATED 81 MG TABLET.EC PO SCH (09:42)
[2021-09-06] MEDS: LITHIUM CARBONATE 300 MG CAPSULE PO SCH ×2 (09:42→23:45)
[2021-09-06] MEDS: LISINOPRIL 10 MG TABLET PO SCH (09:42)
[2021-09-06] MEDS: amLODIPine BESYLATE 5 MG TABLET (FP) PO SCH (09:42)
[2021-09-06] MEDS: PRENATAL VITAMINS W/ FOLIC ACID TABLET (FP) PO SCH (09:42)
[2021-09-06] MEDS: NICOTINE 7 MG/24 HOURS TOPICAL PATCH TD SCH (09:43)
[2021-09-06] MEDS: AMMONIUM LACTATE 12% LOTION 225 GM BOTTLE TP SCH (12:02)
[2021-09-06] MEDS: FENOFIBRIC ACID 45 MG CAP PO SCH (12:02)
[2021-09-06] MEDS: COLLOIDAL OATMEAL 1 BAR EACH TP PRN (12:02)
[2021-09-06] MEDS: THIAMINE HCL 100 MG TABLET (FP) PO SCH (21:20)
[2021-09-06] MEDS: traZODone HCL 50 MG TABLET (FP) PO SCH (21:21)
[2021-09-06] MEDS: OLANZapine 10 MG TABLET PO SCH (21:22)
[2021-09-07] MEDS ORDERED: methaDONE HCL 10 MG TABLET ONE (03:44)
[2021-09-07] MEDS ORDERED: methaDONE HCL 40 MG DISPERSABLE TABLET ONE (03:44)
[2021-09-07 06:06] LABS: SARS-CoV-2 NAA Not Detected (Not Detected)
[2021-09-07] MEDS: GABAPENTIN 400 MG CAPSULE PO SCH ×3 (06:15→21:24)
[2021-09-07] MEDS: metFORMIN HCL 500 MG TABLET (FP) PO SCH (07:19)
[2021-09-07] MEDS: ASPIRIN COATED 81 MG TABLET.EC PO SCH (09:55)
[2021-09-07] MEDS: PRENATAL VITAMINS W/ FOLIC ACID TABLET (FP) PO SCH (09:55)
[2021-09-07] MEDS: LITHIUM CARBONATE 300 MG CAPSULE PO SCH ×2 (09:55→21:24)
[2021-09-07] MEDS: NICOTINE 10 MG CARTRIDGE (INHALER) IH PRN (09:55)
[2021-09-07] MEDS: AMMONIUM LACTATE 12% LOTION 225 GM BOTTLE TP SCH (09:55)
[2021-09-07] MEDS: amLODIPine BESYLATE 5 MG TABLET (FP) PO SCH (09:55)
[2021-09-07] MEDS: FENOFIBRIC ACID 45 MG CAP PO SCH (09:55)
[2021-09-07] MEDS: LISINOPRIL 10 MG TABLET PO SCH (09:55)
[2021-09-07] MEDS: NICOTINE 7 MG/24 HOURS TOPICAL PATCH TD SCH (12:19)
[2021-09-07] MEDS: THIAMINE HCL 100 MG TABLET (FP) PO SCH (21:24)
[2021-09-07] MEDS: traZODone HCL 50 MG TABLET (FP) PO SCH (21:24)
[2021-09-07] MEDS: OLANZapine 10 MG TABLET PO SCH (21:24)
[2021-09-08] MEDS ORDERED: methaDONE HCL 10 MG TABLET ONE (03:44)
[2021-09-08] MEDS ORDERED: methaDONE HCL 40 MG DISPERSABLE TABLET ONE (03:44)
[2021-09-08] MEDS: GABAPENTIN 400 MG CAPSULE PO SCH ×3 (06:23→21:16)
[2021-09-08] MEDS: metFORMIN HCL 500 MG TABLET (FP) PO SCH (06:23)
[2021-09-08] MEDS: NICOTINE 10 MG CARTRIDGE (INHALER) IH PRN ×2 (07:24→21:21)
[2021-09-08] MEDS: LITHIUM CARBONATE 300 MG CAPSULE PO SCH ×2 (10:01→21:21)
[2021-09-08] MEDS: ASPIRIN COATED 81 MG TABLET.EC PO SCH (10:01)
[2021-09-08] MEDS: AMMONIUM LACTATE 12% LOTION 225 GM BOTTLE TP SCH (10:01)
[2021-09-08] MEDS: NICOTINE 7 MG/24 HOURS TOPICAL PATCH TD SCH (10:02)
[2021-09-08] MEDS: amLODIPine BESYLATE 5 MG TABLET (FP) PO SCH (10:02)
[2021-09-08] MEDS: PRENATAL VITAMINS W/ FOLIC ACID TABLET (FP) PO SCH (10:03)
[2021-09-08] MEDS: FENOFIBRIC ACID 45 MG CAP PO SCH (10:03)
[2021-09-08] MEDS: LISINOPRIL 10 MG TABLET PO SCH (10:03)
[2021-09-08] MEDS: traZODone HCL 50 MG TABLET (FP) PO SCH (21:15)
[2021-09-08] MEDS: THIAMINE HCL 100 MG TABLET (FP) PO SCH (21:18)
[2021-09-08] MEDS: OLANZapine 10 MG TABLET PO SCH (21:18)
[2021-09-09] MEDS ORDERED: methaDONE HCL 10 MG TABLET ONE (06:11)
[2021-09-09] MEDS ORDERED: methaDONE HCL 40 MG DISPERSABLE TABLET ONE (06:11)
[2021-09-09] MEDS: metFORMIN HCL 500 MG TABLET (FP) PO SCH (06:13)
[2021-09-09] MEDS: GABAPENTIN 400 MG CAPSULE PO SCH ×3 (06:13→21:23)
[2021-09-09] MEDS: NICOTINE 10 MG CARTRIDGE (INHALER) IH PRN ×2 (06:43→21:25)
[2021-09-09] MEDS: LISINOPRIL 10 MG TABLET PO SCH (09:35)
[2021-09-09] MEDS: AMMONIUM LACTATE 12% LOTION 225 GM BOTTLE TP SCH (09:35)
[2021-09-09] MEDS: NICOTINE 7 MG/24 HOURS TOPICAL PATCH TD SCH (09:36)
[2021-09-09] MEDS: ASPIRIN COATED 81 MG TABLET.EC PO SCH (09:36)
[2021-09-09] MEDS: PRENATAL VITAMINS W/ FOLIC ACID TABLET (FP) PO SCH (09:36)
[2021-09-09] MEDS: FENOFIBRIC ACID 45 MG CAP PO SCH (09:36)
[2021-09-09] MEDS: amLODIPine BESYLATE 5 MG TABLET (FP) PO SCH (09:36)
[2021-09-09] MEDS: LITHIUM CARBONATE 300 MG CAPSULE PO SCH ×2 (09:36→21:24)
[2021-09-09] MEDS: traZODone HCL 50 MG TABLET (FP) PO SCH (21:23)
[2021-09-09] MEDS: OLANZapine 10 MG TABLET PO SCH (21:24)
[2021-09-09] MEDS: THIAMINE HCL 100 MG TABLET (FP) PO SCH (21:24)
[2021-09-10] MEDS ORDERED: methaDONE HCL 10 MG TABLET ONE (03:21)
[2021-09-10] MEDS ORDERED: methaDONE HCL 40 MG DISPERSABLE TABLET ONE (03:22)
[2021-09-10] MEDS: metFORMIN HCL 500 MG TABLET (FP) PO SCH (06:20)
[2021-09-10] MEDS: GABAPENTIN 400 MG CAPSULE PO SCH ×3 (06:20→21:38)
[2021-09-10] MEDS: NICOTINE 10 MG CARTRIDGE (INHALER) IH PRN ×2 (09:53→21:38)
[2021-09-10] MEDS: ASPIRIN COATED 81 MG TABLET.EC PO SCH (09:54)
[2021-09-10] MEDS: FENOFIBRIC ACID 45 MG CAP PO SCH (09:54)
[2021-09-10] MEDS: LITHIUM CARBONATE 300 MG CAPSULE PO SCH ×2 (09:54→21:38)
[2021-09-10] MEDS: PRENATAL VITAMINS W/ FOLIC ACID TABLET (FP) PO SCH (09:54)
[2021-09-10] MEDS: AMMONIUM LACTATE 12% LOTION 225 GM BOTTLE TP SCH (09:55)
[2021-09-10] MEDS: NICOTINE 7 MG/24 HOURS TOPICAL PATCH TD SCH (09:55)
[2021-09-10] MEDS: LISINOPRIL 10 MG TABLET PO SCH (10:15)
[2021-09-10] MEDS: amLODIPine BESYLATE 5 MG TABLET (FP) PO SCH (10:15)
[2021-09-10] MEDS: THIAMINE HCL 100 MG TABLET (FP) PO SCH (21:38)
[2021-09-10] MEDS: traZODone HCL 50 MG TABLET (FP) PO SCH (21:38)
[2021-09-10] MEDS: OLANZapine 10 MG TABLET PO SCH (21:38)
[2021-09-11] MEDS ORDERED: methaDONE HCL 40 MG DISPERSABLE TABLET ONE (03:42)
[2021-09-11] MEDS ORDERED: methaDONE HCL 10 MG TABLET ONE (03:42)
[2021-09-11] MEDS: metFORMIN HCL 500 MG TABLET (FP) PO SCH (06:12)
[2021-09-11] MEDS: GABAPENTIN 400 MG CAPSULE PO SCH ×3 (06:12→21:21)
[2021-09-11] MEDS: NICOTINE 10 MG CARTRIDGE (INHALER) IH PRN ×2 (07:06→11:48)
[2021-09-11] MEDS: ASPIRIN COATED 81 MG TABLET.EC PO SCH (09:13)
[2021-09-11] MEDS: LITHIUM CARBONATE 300 MG CAPSULE PO SCH ×2 (09:13→21:21)
[2021-09-11] MEDS: AMMONIUM LACTATE 12% LOTION 225 GM BOTTLE TP SCH (09:14)
[2021-09-11] MEDS: NICOTINE 7 MG/24 HOURS TOPICAL PATCH TD SCH (09:14)
[2021-09-11] MEDS: PRENATAL VITAMINS W/ FOLIC ACID TABLET (FP) PO SCH (09:15)
[2021-09-11] MEDS: LISINOPRIL 10 MG TABLET PO SCH (09:15)
[2021-09-11] MEDS: amLODIPine BESYLATE 5 MG TABLET (FP) PO SCH (09:15)
[2021-09-11] MEDS: FENOFIBRIC ACID 45 MG CAP PO SCH (09:15)
[2021-09-11] MEDS: MAG HYDROX/AL HYDROX/SIMETH 30 ML UNIT-DOSE CUP PO PRN (12:07)
[2021-09-11] MEDS: traZODone HCL 50 MG TABLET (FP) PO SCH (21:21)
[2021-09-11] MEDS: THIAMINE HCL 100 MG TABLET (FP) PO SCH (21:21)
[2021-09-11] MEDS: OLANZapine 10 MG TABLET PO SCH (21:21)
[2021-09-12] MEDS ORDERED: methaDONE HCL 10 MG TABLET ONE (06:14)
[2021-09-12] MEDS ORDERED: methaDONE HCL 40 MG DISPERSABLE TABLET ONE (06:14)
[2021-09-12] MEDS: GABAPENTIN 400 MG CAPSULE PO SCH ×3 (06:15→21:19)
[2021-09-12] MEDS: metFORMIN HCL 500 MG TABLET (FP) PO SCH (06:15)
[2021-09-12] MEDS: NICOTINE 10 MG CARTRIDGE (INHALER) IH PRN ×2 (06:16→12:17)
[2021-09-12] MEDS: AMMONIUM LACTATE 12% LOTION 225 GM BOTTLE TP SCH (09:40)
[2021-09-12] MEDS: LITHIUM CARBONATE 300 MG CAPSULE PO SCH ×2 (09:40→21:20)
[2021-09-12] MEDS: ASPIRIN COATED 81 MG TABLET.EC PO SCH (09:40)
[2021-09-12] MEDS: NICOTINE 7 MG/24 HOURS TOPICAL PATCH TD SCH (09:40)
[2021-09-12] MEDS: PRENATAL VITAMINS W/ FOLIC ACID TABLET (FP) PO SCH (09:41)
[2021-09-12] MEDS: amLODIPine BESYLATE 5 MG TABLET (FP) PO SCH (09:41)
[2021-09-12] MEDS: LISINOPRIL 10 MG TABLET PO SCH (09:41)
[2021-09-12] MEDS: FENOFIBRIC ACID 45 MG CAP PO SCH (09:41)
[2021-09-12] MEDS: OLANZapine 10 MG TABLET PO SCH (21:19)
[2021-09-12] MEDS: traZODone HCL 50 MG TABLET (FP) PO SCH (21:19)
[2021-09-12] MEDS: THIAMINE HCL 100 MG TABLET (FP) PO SCH (21:19)
[2021-09-13] MEDS ORDERED: methaDONE HCL 40 MG DISPERSABLE TABLET ONE (03:32)
[2021-09-13] MEDS ORDERED: methaDONE HCL 10 MG TABLET ONE (03:32)
[2021-09-13] MEDS: NICOTINE 10 MG CARTRIDGE (INHALER) IH PRN (06:12)
[2021-09-13] MEDS: GABAPENTIN 400 MG CAPSULE PO SCH ×3 (06:14→21:32)
[2021-09-13] MEDS: metFORMIN HCL 500 MG TABLET (FP) PO SCH (06:14)
[2021-09-13] MEDS: LISINOPRIL 10 MG TABLET PO SCH (09:56)
[2021-09-13] MEDS: ASPIRIN COATED 81 MG TABLET.EC PO SCH (09:56)
[2021-09-13] MEDS: FENOFIBRIC ACID 45 MG CAP PO SCH (09:56)
[2021-09-13] MEDS: LITHIUM CARBONATE 300 MG CAPSULE PO SCH ×2 (09:56→21:34)
[2021-09-13] MEDS: amLODIPine BESYLATE 5 MG TABLET (FP) PO SCH (09:56)
[2021-09-13] MEDS: PRENATAL VITAMINS W/ FOLIC ACID TABLET (FP) PO SCH (09:57)
[2021-09-13] MEDS: NICOTINE 7 MG/24 HOURS TOPICAL PATCH TD SCH (09:57)
[2021-09-13] MEDS: AMMONIUM LACTATE 12% LOTION 225 GM BOTTLE TP SCH (09:58)
[2021-09-13] MEDS: MAG HYDROX/AL HYDROX/SIMETH 30 ML UNIT-DOSE CUP PO PRN ×2 (11:58→17:56)
[2021-09-13] MEDS: traZODone HCL 50 MG TABLET (FP) PO SCH (21:32)
[2021-09-13] MEDS: THIAMINE HCL 100 MG TABLET (FP) PO SCH (21:32)
[2021-09-13] MEDS: OLANZapine 10 MG TABLET PO SCH (21:32)
[2021-09-14] MEDS ORDERED: methaDONE HCL 40 MG DISPERSABLE TABLET ONE (03:48)
[2021-09-14] MEDS ORDERED: methaDONE HCL 10 MG TABLET ONE (03:48)
[2021-09-14] MEDS: GABAPENTIN 400 MG CAPSULE PO SCH ×3 (06:12→21:25)
[2021-09-14] MEDS: metFORMIN HCL 500 MG TABLET (FP) PO SCH (06:12)
[2021-09-14] MEDS ORDERED: ACETAMINOPHEN 325 MG TABLET (FP) PO PRN (09:25)
[2021-09-14] MEDS ORDERED: IBUPROFEN 400 MG TABLET (FP) PO PRN (09:26)
[2021-09-14] MEDS: LITHIUM CARBONATE 300 MG CAPSULE PO SCH ×2 (09:39→21:27)
[2021-09-14] MEDS: AMMONIUM LACTATE 12% LOTION 225 GM BOTTLE TP SCH (09:39)
[2021-09-14] MEDS: ASPIRIN COATED 81 MG TABLET.EC PO SCH (09:39)
[2021-09-14] MEDS: NICOTINE 7 MG/24 HOURS TOPICAL PATCH TD SCH (09:39)
[2021-09-14] MEDS: FENOFIBRIC ACID 45 MG CAP PO SCH (09:40)
[2021-09-14] MEDS: PRENATAL VITAMINS W/ FOLIC ACID TABLET (FP) PO SCH (09:40)
[2021-09-14] MEDS: amLODIPine BESYLATE 5 MG TABLET (FP) PO SCH (09:40)
[2021-09-14] MEDS: LISINOPRIL 10 MG TABLET PO SCH (09:40)
[2021-09-14] MEDS: NICOTINE 10 MG CARTRIDGE (INHALER) IH PRN (09:42)
[2021-09-14] MEDS: MAG HYDROX/AL HYDROX/SIMETH 30 ML UNIT-DOSE CUP PO PRN (15:44)
[2021-09-14] MEDS: THIAMINE HCL 100 MG TABLET (FP) PO SCH (21:25)
[2021-09-14] MEDS: traZODone HCL 50 MG TABLET (FP) PO SCH (21:26)
[2021-09-14] MEDS: OLANZapine 10 MG TABLET PO SCH (21:26)
[2021-09-15] MEDS ORDERED: methaDONE HCL 10 MG TABLET ONE (03:47)
[2021-09-15] MEDS ORDERED: methaDONE HCL 40 MG DISPERSABLE TABLET ONE (03:47)
[2021-09-15] MEDS: metFORMIN HCL 500 MG TABLET (FP) PO SCH (06:15)
[2021-09-15] MEDS: GABAPENTIN 400 MG CAPSULE PO SCH ×3 (06:15→21:15)
[2021-09-15] MEDS: MAG HYDROX/AL HYDROX/SIMETH 30 ML UNIT-DOSE CUP PO PRN ×2 (07:24→21:16)
[2021-09-15] MEDS: NICOTINE 7 MG/24 HOURS TOPICAL PATCH TD SCH (10:05)
[2021-09-15] MEDS: COLLOIDAL OATMEAL 1 BAR EACH TP PRN (10:05)
[2021-09-15] MEDS: amLODIPine BESYLATE 5 MG TABLET (FP) PO SCH (10:06)
[2021-09-15] MEDS: PRENATAL VITAMINS W/ FOLIC ACID TABLET (FP) PO SCH (10:06)
[2021-09-15] MEDS: LITHIUM CARBONATE 300 MG CAPSULE PO SCH ×2 (10:06→21:12)
[2021-09-15] MEDS: ASPIRIN COATED 81 MG TABLET.EC PO SCH (10:06)
[2021-09-15] MEDS: AMMONIUM LACTATE 12% LOTION 225 GM BOTTLE TP SCH (10:06)
[2021-09-15] MEDS: LISINOPRIL 10 MG TABLET PO SCH (10:06)
[2021-09-15] MEDS: FENOFIBRIC ACID 45 MG CAP PO SCH (10:07)
[2021-09-15] MEDS: traZODone HCL 50 MG TABLET (FP) PO SCH (21:12)
[2021-09-15] MEDS: OLANZapine 10 MG TABLET PO SCH (21:12)
[2021-09-15] MEDS: THIAMINE HCL 100 MG TABLET (FP) PO SCH (21:12)
[2021-09-16] MEDS ORDERED: methaDONE HCL 10 MG TABLET ONE (03:31)
[2021-09-16] MEDS ORDERED: methaDONE HCL 40 MG DISPERSABLE TABLET ONE (03:32)
[2021-09-16] MEDS: metFORMIN HCL 500 MG TABLET (FP) PO SCH (06:11)
[2021-09-16] MEDS: GABAPENTIN 400 MG CAPSULE PO SCH ×3 (06:11→21:18)
[2021-09-16] MEDS: LISINOPRIL 10 MG TABLET PO SCH (09:50)
[2021-09-16] MEDS: PRENATAL VITAMINS W/ FOLIC ACID TABLET (FP) PO SCH (09:50)
[2021-09-16] MEDS: ASPIRIN COATED 81 MG TABLET.EC PO SCH (09:50)
[2021-09-16] MEDS: MAG HYDROX/AL HYDROX/SIMETH 30 ML UNIT-DOSE CUP PO PRN (09:50)
[2021-09-16] MEDS: amLODIPine BESYLATE 5 MG TABLET (FP) PO SCH (09:50)
[2021-09-16] MEDS: LITHIUM CARBONATE 300 MG CAPSULE PO SCH ×2 (09:51→21:18)
[2021-09-16] MEDS: NICOTINE 7 MG/24 HOURS TOPICAL PATCH TD SCH (09:51)
[2021-09-16] MEDS: FENOFIBRIC ACID 45 MG CAP PO SCH (09:51)
[2021-09-16] MEDS: AMMONIUM LACTATE 12% LOTION 225 GM BOTTLE TP SCH (09:52)
[2021-09-16] MEDS: FAMOTIDINE 20 MG TABLET PO SCH ×2 (13:05→21:18)
[2021-09-16] MEDS: OLANZapine 10 MG TABLET PO SCH (21:17)
[2021-09-16] MEDS: THIAMINE HCL 100 MG TABLET (FP) PO SCH (21:18)
[2021-09-16] MEDS: traZODone HCL 50 MG TABLET (FP) PO SCH (21:18)
[2021-09-17] MEDS ORDERED: methaDONE HCL 10 MG TABLET ONE (03:22)
[2021-09-17] MEDS ORDERED: methaDONE HCL 40 MG DISPERSABLE TABLET ONE (03:22)
[2021-09-17] MEDS: GABAPENTIN 400 MG CAPSULE PO SCH ×3 (06:08→21:06)
[2021-09-17] MEDS: metFORMIN HCL 500 MG TABLET (FP) PO SCH (06:08)
[2021-09-17] MEDS: PRENATAL VITAMINS W/ FOLIC ACID TABLET (FP) PO SCH (09:42)
[2021-09-17] MEDS: FAMOTIDINE 20 MG TABLET PO SCH ×2 (09:43→21:06)
[2021-09-17] MEDS: amLODIPine BESYLATE 5 MG TABLET (FP) PO SCH (09:43)
[2021-09-17] MEDS: ASPIRIN COATED 81 MG TABLET.EC PO SCH (09:43)
[2021-09-17] MEDS: LITHIUM CARBONATE 300 MG CAPSULE PO SCH ×2 (09:44→21:06)
[2021-09-17] MEDS: LISINOPRIL 10 MG TABLET PO SCH (09:44)
[2021-09-17] MEDS: FENOFIBRIC ACID 45 MG CAP PO SCH (09:44)
[2021-09-17] MEDS: NICOTINE 7 MG/24 HOURS TOPICAL PATCH TD SCH (09:44)
[2021-09-17] MEDS: AMMONIUM LACTATE 12% LOTION 225 GM BOTTLE TP SCH (09:45)
[2021-09-17] MEDS: THIAMINE HCL 100 MG TABLET (FP) PO SCH (21:06)
[2021-09-17] MEDS: traZODone HCL 50 MG TABLET (FP) PO SCH (21:06)
[2021-09-17] MEDS: OLANZapine 10 MG TABLET PO SCH (21:07)
[2021-09-18] MEDS ORDERED: methaDONE HCL 10 MG TABLET ONE (03:56)
[2021-09-18] MEDS ORDERED: methaDONE HCL 40 MG DISPERSABLE TABLET ONE (03:57)
[2021-09-18] MEDS: metFORMIN HCL 500 MG TABLET (FP) PO SCH (06:14)
[2021-09-18] MEDS: GABAPENTIN 400 MG CAPSULE PO SCH ×3 (06:14→21:06)
[2021-09-18] MEDS: NICOTINE 10 MG CARTRIDGE (INHALER) IH PRN (06:54)
[2021-09-18] MEDS: AMMONIUM LACTATE 12% LOTION 225 GM BOTTLE TP SCH (09:49)
[2021-09-18] MEDS: LITHIUM CARBONATE 300 MG CAPSULE PO SCH ×2 (09:50→21:06)
[2021-09-18] MEDS: ASPIRIN COATED 81 MG TABLET.EC PO SCH (09:50)
[2021-09-18] MEDS: LISINOPRIL 10 MG TABLET PO SCH (09:50)
[2021-09-18] MEDS: FAMOTIDINE 20 MG TABLET PO SCH ×2 (09:50→21:06)
[2021-09-18] MEDS: FENOFIBRIC ACID 45 MG CAP PO SCH (09:50)
[2021-09-18] MEDS: NICOTINE 7 MG/24 HOURS TOPICAL PATCH TD SCH (09:51)
[2021-09-18] MEDS: amLODIPine BESYLATE 5 MG TABLET (FP) PO SCH (09:51)
[2021-09-18] MEDS: PRENATAL VITAMINS W/ FOLIC ACID TABLET (FP) PO SCH (09:51)
[2021-09-18] MEDS: OLANZapine 10 MG TABLET PO SCH (21:05)
[2021-09-18] MEDS: traZODone HCL 50 MG TABLET (FP) PO SCH (21:06)
[2021-09-18] MEDS: THIAMINE HCL 100 MG TABLET (FP) PO SCH (21:06)
[2021-09-19] MEDS ORDERED: methaDONE HCL 10 MG TABLET ONE (06:04)
[2021-09-19] MEDS ORDERED: methaDONE HCL 40 MG DISPERSABLE TABLET ONE (06:04)
[2021-09-19] MEDS: GABAPENTIN 400 MG CAPSULE PO SCH ×3 (06:09→21:02)
[2021-09-19] MEDS: metFORMIN HCL 500 MG TABLET (FP) PO SCH (06:09)
[2021-09-19] MEDS: NICOTINE 10 MG CARTRIDGE (INHALER) IH PRN (06:41)
[2021-09-19] MEDS: FENOFIBRIC ACID 45 MG CAP PO SCH (09:52)
[2021-09-19] MEDS: amLODIPine BESYLATE 5 MG TABLET (FP) PO SCH (09:53)
[2021-09-19] MEDS: ASPIRIN COATED 81 MG TABLET.EC PO SCH (09:53)
[2021-09-19] MEDS: LITHIUM CARBONATE 300 MG CAPSULE PO SCH ×2 (09:53→21:02)
[2021-09-19] MEDS: LISINOPRIL 10 MG TABLET PO SCH (09:53)
[2021-09-19] MEDS: FAMOTIDINE 20 MG TABLET PO SCH ×2 (09:53→21:02)
[2021-09-19] MEDS: NICOTINE 7 MG/24 HOURS TOPICAL PATCH TD SCH (09:54)
[2021-09-19] MEDS: AMMONIUM LACTATE 12% LOTION 225 GM BOTTLE TP SCH (09:54)
[2021-09-19] MEDS: PRENATAL VITAMINS W/ FOLIC ACID TABLET (FP) PO SCH (09:54)
[2021-09-19] MEDS: MAGNESIUM HYDROX 2400MG/30ML ORAL SUSPENSION 30 ML CUP PO PRN (11:03)
[2021-09-19] MEDS: OLANZapine 10 MG TABLET PO SCH (21:01)
[2021-09-19] MEDS: traZODone HCL 50 MG TABLET (FP) PO SCH (21:02)
[2021-09-19] MEDS: THIAMINE HCL 100 MG TABLET (FP) PO SCH (21:02)
[2021-09-20] MEDS ORDERED: methaDONE HCL 40 MG DISPERSABLE TABLET ONE (03:22)
[2021-09-20] MEDS ORDERED: methaDONE HCL 10 MG TABLET ONE (03:22)
[2021-09-20] MEDS: GABAPENTIN 400 MG CAPSULE PO SCH ×3 (05:58→21:26)
[2021-09-20] MEDS: metFORMIN HCL 500 MG TABLET (FP) PO SCH (06:00)
[2021-09-20] MEDS: NICOTINE 10 MG CARTRIDGE (INHALER) IH PRN (06:49)
[2021-09-20] MEDS: LITHIUM CARBONATE 300 MG CAPSULE PO SCH ×2 (09:34→21:26)
[2021-09-20] MEDS: ASPIRIN COATED 81 MG TABLET.EC PO SCH (09:34)
[2021-09-20] MEDS: amLODIPine BESYLATE 5 MG TABLET (FP) PO SCH (09:35)
[2021-09-20] MEDS: NICOTINE 7 MG/24 HOURS TOPICAL PATCH TD SCH (09:35)
[2021-09-20] MEDS: AMMONIUM LACTATE 12% LOTION 225 GM BOTTLE TP SCH (09:35)
[2021-09-20] MEDS: FAMOTIDINE 20 MG TABLET PO SCH ×2 (09:36→21:25)
[2021-09-20] MEDS: PRENATAL VITAMINS W/ FOLIC ACID TABLET (FP) PO SCH (09:36)
[2021-09-20] MEDS: LISINOPRIL 10 MG TABLET PO SCH (09:36)
[2021-09-20] MEDS: FENOFIBRIC ACID 45 MG CAP PO SCH (09:36)
[2021-09-20] MEDS: THIAMINE HCL 100 MG TABLET (FP) PO SCH (21:25)
[2021-09-20] MEDS: traZODone HCL 50 MG TABLET (FP) PO SCH (21:26)
[2021-09-20] MEDS: OLANZapine 10 MG TABLET PO SCH (21:26)
[2021-09-21] MEDS ORDERED: methaDONE HCL 40 MG DISPERSABLE TABLET ONE (03:27)
[2021-09-21] MEDS ORDERED: methaDONE HCL 10 MG TABLET ONE (03:27)
[2021-09-21] MEDS: metFORMIN HCL 500 MG TABLET (FP) PO SCH (06:05)
[2021-09-21] MEDS: GABAPENTIN 400 MG CAPSULE PO SCH ×3 (06:05→21:18)
[2021-09-21] MEDS: NICOTINE 10 MG CARTRIDGE (INHALER) IH PRN (06:07)
[2021-09-21] MEDS: PRENATAL VITAMINS W/ FOLIC ACID TABLET (FP) PO SCH (09:53)
[2021-09-21] MEDS: ASPIRIN COATED 81 MG TABLET.EC PO SCH (09:53)
[2021-09-21] MEDS: FAMOTIDINE 20 MG TABLET PO SCH ×2 (09:53→21:18)
[2021-09-21] MEDS: amLODIPine BESYLATE 5 MG TABLET (FP) PO SCH (09:53)
[2021-09-21] MEDS: LISINOPRIL 10 MG TABLET PO SCH (09:53)
[2021-09-21] MEDS: LITHIUM CARBONATE 300 MG CAPSULE PO SCH ×2 (09:54→21:19)
[2021-09-21] MEDS: FENOFIBRIC ACID 45 MG CAP PO SCH (09:54)
[2021-09-21] MEDS: AMMONIUM LACTATE 12% LOTION 225 GM BOTTLE TP SCH (09:55)
[2021-09-21] MEDS: NICOTINE 7 MG/24 HOURS TOPICAL PATCH TD SCH (09:55)
[2021-09-21] MEDS: traZODone HCL 50 MG TABLET (FP) PO SCH (21:18)
[2021-09-21] MEDS: THIAMINE HCL 100 MG TABLET (FP) PO SCH (21:19)
[2021-09-21] MEDS: OLANZapine 10 MG TABLET PO SCH (21:19)
[2021-09-22] MEDS ORDERED: methaDONE HCL 40 MG DISPERSABLE TABLET ONE (03:18)
[2021-09-22] MEDS ORDERED: methaDONE HCL 10 MG TABLET ONE (03:18)
[2021-09-22] MEDS: metFORMIN HCL 500 MG TABLET (FP) PO SCH (06:13)
[2021-09-22] MEDS: GABAPENTIN 400 MG CAPSULE PO SCH ×3 (06:13→21:26)
[2021-09-22] MEDS: NICOTINE 10 MG CARTRIDGE (INHALER) IH PRN (06:55)
[2021-09-22] MEDS: ASPIRIN COATED 81 MG TABLET.EC PO SCH (09:35)
[2021-09-22] MEDS: LITHIUM CARBONATE 300 MG CAPSULE PO SCH ×2 (09:35→21:26)
[2021-09-22] MEDS: AMMONIUM LACTATE 12% LOTION 225 GM BOTTLE TP SCH (09:35)
[2021-09-22] MEDS: NICOTINE 7 MG/24 HOURS TOPICAL PATCH TD SCH (09:36)
[2021-09-22] MEDS: FAMOTIDINE 20 MG TABLET PO SCH ×2 (09:37→21:26)
[2021-09-22] MEDS: FENOFIBRIC ACID 45 MG CAP PO SCH (09:37)
[2021-09-22] MEDS: amLODIPine BESYLATE 5 MG TABLET (FP) PO SCH (09:37)
[2021-09-22] MEDS: LISINOPRIL 10 MG TABLET PO SCH (09:38)
[2021-09-22] MEDS: PRENATAL VITAMINS W/ FOLIC ACID TABLET (FP) PO SCH (09:38)
[2021-09-22] MEDS: traZODone HCL 50 MG TABLET (FP) PO SCH (21:26)
[2021-09-22] MEDS: THIAMINE HCL 100 MG TABLET (FP) PO SCH (21:26)
[2021-09-22] MEDS: OLANZapine 10 MG TABLET PO SCH (21:27)
[2021-09-23] MEDS ORDERED: methaDONE HCL 10 MG TABLET ONE (03:09)
[2021-09-23] MEDS ORDERED: methaDONE HCL 40 MG DISPERSABLE TABLET ONE (03:10)
[2021-09-23] MEDS: metFORMIN HCL 500 MG TABLET (FP) PO SCH (06:07)
[2021-09-23] MEDS: GABAPENTIN 400 MG CAPSULE PO SCH ×3 (06:07→21:01)
[2021-09-23] MEDS: NICOTINE 7 MG/24 HOURS TOPICAL PATCH TD SCH (09:41)
[2021-09-23] MEDS: PRENATAL VITAMINS W/ FOLIC ACID TABLET (FP) PO SCH (09:42)
[2021-09-23] MEDS: AMMONIUM LACTATE 12% LOTION 225 GM BOTTLE TP SCH (09:42)
[2021-09-23] MEDS: amLODIPine BESYLATE 5 MG TABLET (FP) PO SCH (09:42)
[2021-09-23] MEDS: LISINOPRIL 10 MG TABLET PO SCH (09:42)
[2021-09-23] MEDS: LITHIUM CARBONATE 300 MG CAPSULE PO SCH ×2 (09:42→21:01)
[2021-09-23] MEDS: ASPIRIN COATED 81 MG TABLET.EC PO SCH (09:42)
[2021-09-23] MEDS: FAMOTIDINE 20 MG TABLET PO SCH ×2 (09:42→21:04)
[2021-09-23] MEDS: FENOFIBRIC ACID 45 MG CAP PO SCH (09:43)
[2021-09-23] MEDS: NICOTINE 10 MG CARTRIDGE (INHALER) IH PRN (13:44)
[2021-09-23] MEDS: THIAMINE HCL 100 MG TABLET (FP) PO SCH (21:01)
[2021-09-23] MEDS: OLANZapine 10 MG TABLET PO SCH (21:01)
[2021-09-23] MEDS: traZODone HCL 50 MG TABLET (FP) PO SCH (21:02)
[2021-09-24] MEDS ORDERED: methaDONE HCL 40 MG DISPERSABLE TABLET ONE (05:20)
[2021-09-24] MEDS ORDERED: methaDONE HCL 10 MG TABLET ONE (05:20)
[2021-09-24] MEDS: GABAPENTIN 400 MG CAPSULE PO SCH ×3 (06:05→21:07)
[2021-09-24] MEDS: NICOTINE 10 MG CARTRIDGE (INHALER) IH PRN ×2 (06:45→14:08)
[2021-09-24] MEDS: metFORMIN HCL 500 MG TABLET (FP) PO SCH (07:31)
[2021-09-24] MEDS: PRENATAL VITAMINS W/ FOLIC ACID TABLET (FP) PO SCH (10:06)
[2021-09-24] MEDS: FENOFIBRIC ACID 45 MG CAP PO SCH (10:06)
[2021-09-24] MEDS: LITHIUM CARBONATE 300 MG CAPSULE PO SCH ×2 (10:07→21:07)
[2021-09-24] MEDS: ASPIRIN COATED 81 MG TABLET.EC PO SCH (10:07)
[2021-09-24] MEDS: NICOTINE 7 MG/24 HOURS TOPICAL PATCH TD SCH (10:07)
[2021-09-24] MEDS: FAMOTIDINE 20 MG TABLET PO SCH ×2 (10:07→21:07)
[2021-09-24] MEDS: LISINOPRIL 10 MG TABLET PO SCH (10:07)
[2021-09-24] MEDS: amLODIPine BESYLATE 5 MG TABLET (FP) PO SCH (10:07)
[2021-09-24] MEDS: AMMONIUM LACTATE 12% LOTION 225 GM BOTTLE TP SCH (10:09)
[2021-09-24] MEDS: OLANZapine 10 MG TABLET PO SCH (21:07)
[2021-09-24] MEDS: THIAMINE HCL 100 MG TABLET (FP) PO SCH (21:07)
[2021-09-24] MEDS: traZODone HCL 50 MG TABLET (FP) PO SCH (21:07)
[2021-09-25] MEDS ORDERED: methaDONE HCL 10 MG TABLET ONE (03:09)
[2021-09-25] MEDS ORDERED: methaDONE HCL 40 MG DISPERSABLE TABLET ONE (03:10)
[2021-09-25] MEDS: metFORMIN HCL 500 MG TABLET (FP) PO SCH (06:06)
[2021-09-25] MEDS: GABAPENTIN 400 MG CAPSULE PO SCH ×3 (06:06→21:01)
[2021-09-25] MEDS: ASPIRIN COATED 81 MG TABLET.EC PO SCH (09:52)
[2021-09-25] MEDS: AMMONIUM LACTATE 12% LOTION 225 GM BOTTLE TP SCH (09:52)
[2021-09-25] MEDS: LITHIUM CARBONATE 300 MG CAPSULE PO SCH ×2 (09:52→21:01)
[2021-09-25] MEDS: NICOTINE 7 MG/24 HOURS TOPICAL PATCH TD SCH (09:52)
[2021-09-25] MEDS: FAMOTIDINE 20 MG TABLET PO SCH ×2 (09:53→21:01)
[2021-09-25] MEDS: amLODIPine BESYLATE 5 MG TABLET (FP) PO SCH (09:53)
[2021-09-25] MEDS: PRENATAL VITAMINS W/ FOLIC ACID TABLET (FP) PO SCH (09:53)
[2021-09-25] MEDS: LISINOPRIL 10 MG TABLET PO SCH (09:53)
[2021-09-25] MEDS: FENOFIBRIC ACID 45 MG CAP PO SCH (09:53)
[2021-09-25] MEDS: THIAMINE HCL 100 MG TABLET (FP) PO SCH (21:00)
[2021-09-25] MEDS: traZODone HCL 50 MG TABLET (FP) PO SCH (21:01)
[2021-09-25] MEDS: OLANZapine 10 MG TABLET PO SCH (21:02)
[2021-09-26] MEDS ORDERED: methaDONE HCL 10 MG TABLET ONE (06:05)
[2021-09-26] MEDS ORDERED: methaDONE HCL 40 MG DISPERSABLE TABLET ONE (06:05)
[2021-09-26] MEDS: metFORMIN HCL 500 MG TABLET (FP) PO SCH (06:07)
[2021-09-26] MEDS: GABAPENTIN 400 MG CAPSULE PO SCH ×3 (06:07→21:04)
[2021-09-26] MEDS: NICOTINE 10 MG CARTRIDGE (INHALER) IH PRN (06:08)
[2021-09-26] MEDS: ASPIRIN COATED 81 MG TABLET.EC PO SCH (09:37)
[2021-09-26] MEDS: amLODIPine BESYLATE 5 MG TABLET (FP) PO SCH (09:38)
[2021-09-26] MEDS: FAMOTIDINE 20 MG TABLET PO SCH ×2 (09:38→21:04)
[2021-09-26] MEDS: FENOFIBRIC ACID 45 MG CAP PO SCH (09:38)
[2021-09-26] MEDS: LISINOPRIL 10 MG TABLET PO SCH (09:38)
[2021-09-26] MEDS: AMMONIUM LACTATE 12% LOTION 225 GM BOTTLE TP SCH (09:39)
[2021-09-26] MEDS: LITHIUM CARBONATE 300 MG CAPSULE PO SCH ×2 (09:39→21:04)
[2021-09-26] MEDS: PRENATAL VITAMINS W/ FOLIC ACID TABLET (FP) PO SCH (09:39)
[2021-09-26] MEDS: NICOTINE 7 MG/24 HOURS TOPICAL PATCH TD SCH (09:40)
[2021-09-26] MEDS: hydrOXYzine PAMOATE 25 MG CAPSULE (FP) PO PRN ×2 (12:57→21:04)
[2021-09-26] MEDS: THIAMINE HCL 100 MG TABLET (FP) PO SCH (21:03)
[2021-09-26] MEDS: traZODone HCL 50 MG TABLET (FP) PO SCH (21:04)
[2021-09-26] MEDS: OLANZapine 10 MG TABLET PO SCH (21:05)
[2021-09-27] MEDS ORDERED: methaDONE HCL 40 MG DISPERSABLE TABLET ONE (04:06)
[2021-09-27] MEDS ORDERED: methaDONE HCL 10 MG TABLET ONE (04:06)
[2021-09-27] MEDS: GABAPENTIN 400 MG CAPSULE PO SCH ×3 (05:58→21:19)
[2021-09-27] MEDS: NICOTINE 10 MG CARTRIDGE (INHALER) IH PRN (06:00)
[2021-09-27] MEDS: hydrOXYzine PAMOATE 25 MG CAPSULE (FP) PO PRN ×2 (06:01→21:19)
[2021-09-27] MEDS: metFORMIN HCL 500 MG TABLET (FP) PO SCH (06:06)
[2021-09-27] MEDS: LITHIUM CARBONATE 300 MG CAPSULE PO SCH ×2 (09:33→21:19)
[2021-09-27] MEDS: AMMONIUM LACTATE 12% LOTION 225 GM BOTTLE TP SCH (09:33)
[2021-09-27] MEDS: ASPIRIN COATED 81 MG TABLET.EC PO SCH (09:33)
[2021-09-27] MEDS: NICOTINE 7 MG/24 HOURS TOPICAL PATCH TD SCH (09:33)
[2021-09-27] MEDS: LISINOPRIL 10 MG TABLET PO SCH (09:34)
[2021-09-27] MEDS: FENOFIBRIC ACID 45 MG CAP PO SCH (09:34)
[2021-09-27] MEDS: PRENATAL VITAMINS W/ FOLIC ACID TABLET (FP) PO SCH (09:34)
[2021-09-27] MEDS: FAMOTIDINE 20 MG TABLET PO SCH ×2 (09:34→21:19)
[2021-09-27] MEDS: amLODIPine BESYLATE 5 MG TABLET (FP) PO SCH (09:34)
[2021-09-27] MEDS: OLANZapine 7.5 MG TABLET PO SCH (21:19)
[2021-09-27] MEDS: THIAMINE HCL 100 MG TABLET (FP) PO SCH (21:19)
[2021-09-27] MEDS: traZODone HCL 50 MG TABLET (FP) PO SCH (21:19)
[2021-09-28] MEDS ORDERED: methaDONE HCL 10 MG TABLET ONE (03:11)
[2021-09-28] MEDS ORDERED: methaDONE HCL 40 MG DISPERSABLE TABLET ONE (03:11)
[2021-09-28] MEDS: metFORMIN HCL 500 MG TABLET (FP) PO SCH (06:06)
[2021-09-28] MEDS: GABAPENTIN 400 MG CAPSULE PO SCH ×3 (06:06→21:11)
[2021-09-28] MEDS: hydrOXYzine PAMOATE 25 MG CAPSULE (FP) PO PRN ×3 (06:33→21:17)
[2021-09-28] MEDS: ASPIRIN COATED 81 MG TABLET.EC PO SCH (09:36)
[2021-09-28] MEDS: LISINOPRIL 10 MG TABLET PO SCH (09:36)
[2021-09-28] MEDS: amLODIPine BESYLATE 5 MG TABLET (FP) PO SCH (09:36)
[2021-09-28] MEDS: NICOTINE 7 MG/24 HOURS TOPICAL PATCH TD SCH (09:36)
[2021-09-28] MEDS: FENOFIBRIC ACID 45 MG CAP PO SCH (09:37)
[2021-09-28] MEDS: FAMOTIDINE 20 MG TABLET PO SCH ×2 (09:37→21:11)
[2021-09-28] MEDS: PRENATAL VITAMINS W/ FOLIC ACID TABLET (FP) PO SCH (09:37)
[2021-09-28] MEDS: LITHIUM CARBONATE 300 MG CAPSULE PO SCH ×2 (09:37→21:11)
[2021-09-28] MEDS: AMMONIUM LACTATE 12% LOTION 225 GM BOTTLE TP SCH (09:38)
[2021-09-28] MEDS: NICOTINE 10 MG CARTRIDGE (INHALER) IH PRN (11:50)
[2021-09-28] MEDS: THIAMINE HCL 100 MG TABLET (FP) PO SCH (21:11)
[2021-09-28] MEDS: traZODone HCL 50 MG TABLET (FP) PO SCH (21:11)
[2021-09-28] MEDS: OLANZapine 7.5 MG TABLET PO SCH (21:14)
[2021-09-29] MEDS ORDERED: methaDONE HCL 40 MG DISPERSABLE TABLET ONE (03:14)
[2021-09-29] MEDS ORDERED: methaDONE HCL 10 MG TABLET ONE (03:14)
[2021-09-29] MEDS: metFORMIN HCL 500 MG TABLET (FP) PO SCH (06:09)
[2021-09-29] MEDS: hydrOXYzine PAMOATE 25 MG CAPSULE (FP) PO PRN ×2 (06:09→21:12)
[2021-09-29] MEDS: GABAPENTIN 400 MG CAPSULE PO SCH ×3 (06:09→21:12)
[2021-09-29] MEDS: NICOTINE 10 MG CARTRIDGE (INHALER) IH PRN (06:11)
[2021-09-29] MEDS: FENOFIBRIC ACID 45 MG CAP PO SCH (09:40)
[2021-09-29] MEDS: FAMOTIDINE 20 MG TABLET PO SCH ×2 (09:40→21:12)
[2021-09-29] MEDS: amLODIPine BESYLATE 5 MG TABLET (FP) PO SCH (09:40)
[2021-09-29] MEDS: ASPIRIN COATED 81 MG TABLET.EC PO SCH (09:40)
[2021-09-29] MEDS: LISINOPRIL 10 MG TABLET PO SCH (09:40)
[2021-09-29] MEDS: LITHIUM CARBONATE 300 MG CAPSULE PO SCH ×2 (09:40→21:12)
[2021-09-29] MEDS: PRENATAL VITAMINS W/ FOLIC ACID TABLET (FP) PO SCH (09:41)
[2021-09-29] MEDS: AMMONIUM LACTATE 12% LOTION 225 GM BOTTLE TP SCH (09:41)
[2021-09-29] MEDS: NICOTINE 7 MG/24 HOURS TOPICAL PATCH TD SCH (09:41)
[2021-09-29] MEDS: THIAMINE HCL 100 MG TABLET (FP) PO SCH (21:12)
[2021-09-29] MEDS: traZODone HCL 50 MG TABLET (FP) PO SCH (21:12)
[2021-09-29] MEDS: OLANZapine 7.5 MG TABLET PO SCH (21:12)
[2021-09-30] MEDS ORDERED: methaDONE HCL 40 MG DISPERSABLE TABLET ONE (03:17)
[2021-09-30] MEDS ORDERED: methaDONE HCL 10 MG TABLET ONE (03:17)
[2021-09-30] MEDS: GABAPENTIN 400 MG CAPSULE PO SCH ×3 (06:10→21:16)
[2021-09-30] MEDS: hydrOXYzine PAMOATE 25 MG CAPSULE (FP) PO PRN ×2 (06:10→21:16)
[2021-09-30] MEDS: metFORMIN HCL 500 MG TABLET (FP) PO SCH (06:10)
[2021-09-30] MEDS: NICOTINE 10 MG CARTRIDGE (INHALER) IH PRN (06:11)
[2021-09-30] MEDS: NICOTINE 7 MG/24 HOURS TOPICAL PATCH TD SCH (09:35)
[2021-09-30] MEDS: PRENATAL VITAMINS W/ FOLIC ACID TABLET (FP) PO SCH (09:35)
[2021-09-30] MEDS: AMMONIUM LACTATE 12% LOTION 225 GM BOTTLE TP SCH (09:35)
[2021-09-30] MEDS: FENOFIBRIC ACID 45 MG CAP PO SCH (09:35)
[2021-09-30] MEDS: LISINOPRIL 10 MG TABLET PO SCH (09:35)
[2021-09-30] MEDS: amLODIPine BESYLATE 5 MG TABLET (FP) PO SCH (09:35)
[2021-09-30] MEDS: LITHIUM CARBONATE 300 MG CAPSULE PO SCH ×2 (09:35→21:16)
[2021-09-30] MEDS: FAMOTIDINE 20 MG TABLET PO SCH ×2 (09:35→21:17)
[2021-09-30] MEDS: ASPIRIN COATED 81 MG TABLET.EC PO SCH (09:35)
[2021-09-30] MEDS: MAGNESIUM HYDROX 2400MG/30ML ORAL SUSPENSION 30 ML CUP PO PRN (09:37)
[2021-09-30] MEDS: THIAMINE HCL 100 MG TABLET (FP) PO SCH (21:16)
[2021-09-30] MEDS: traZODone HCL 50 MG TABLET (FP) PO SCH (21:17)
[2021-09-30] MEDS: OLANZapine 7.5 MG TABLET PO SCH (21:17)
[2021-10-01] MEDS ORDERED: methaDONE HCL 40 MG DISPERSABLE TABLET ONE (03:13)
[2021-10-01] MEDS ORDERED: methaDONE HCL 10 MG TABLET ONE (03:13)
[2021-10-01] MEDS: hydrOXYzine PAMOATE 25 MG CAPSULE (FP) PO PRN ×2 (06:03→21:19)
[2021-10-01] MEDS: GABAPENTIN 400 MG CAPSULE PO SCH ×3 (06:03→21:18)
[2021-10-01] MEDS: metFORMIN HCL 500 MG TABLET (FP) PO SCH (06:03)
[2021-10-01] MEDS: NICOTINE 10 MG CARTRIDGE (INHALER) IH PRN (06:04)
[2021-10-01] MEDS: AMMONIUM LACTATE 12% LOTION 225 GM BOTTLE TP SCH (09:11)
[2021-10-01] MEDS: LITHIUM CARBONATE 300 MG CAPSULE PO SCH ×2 (09:11→21:19)
[2021-10-01] MEDS: NICOTINE 7 MG/24 HOURS TOPICAL PATCH TD SCH (09:11)
[2021-10-01] MEDS: ASPIRIN COATED 81 MG TABLET.EC PO SCH (09:11)
[2021-10-01] MEDS: LISINOPRIL 10 MG TABLET PO SCH (09:12)
[2021-10-01] MEDS: FAMOTIDINE 20 MG TABLET PO SCH ×2 (09:12→21:18)
[2021-10-01] MEDS: PRENATAL VITAMINS W/ FOLIC ACID TABLET (FP) PO SCH (09:13)
[2021-10-01] MEDS: amLODIPine BESYLATE 5 MG TABLET (FP) PO SCH (09:13)
[2021-10-01] MEDS: FENOFIBRIC ACID 45 MG CAP PO SCH (09:13)
[2021-10-01] MEDS: THIAMINE HCL 100 MG TABLET (FP) PO SCH (21:18)
[2021-10-01] MEDS: OLANZapine 7.5 MG TABLET PO SCH (21:18)
[2021-10-01] MEDS: traZODone HCL 50 MG TABLET (FP) PO SCH (21:19)
[2021-10-02] MEDS ORDERED: methaDONE HCL 10 MG TABLET ONE (03:14)
[2021-10-02] MEDS ORDERED: methaDONE HCL 40 MG DISPERSABLE TABLET ONE (03:14)
[2021-10-02] MEDS: GABAPENTIN 400 MG CAPSULE PO SCH ×3 (06:02→21:10)
[2021-10-02] MEDS: metFORMIN HCL 500 MG TABLET (FP) PO SCH (06:02)
[2021-10-02] MEDS: hydrOXYzine PAMOATE 25 MG CAPSULE (FP) PO PRN (06:03)
[2021-10-02] MEDS: NICOTINE 10 MG CARTRIDGE (INHALER) IH PRN (07:21)
[2021-10-02] MEDS: NICOTINE 7 MG/24 HOURS TOPICAL PATCH TD SCH (09:56)
[2021-10-02] MEDS: FENOFIBRIC ACID 45 MG CAP PO SCH (09:57)
[2021-10-02] MEDS: LITHIUM CARBONATE 300 MG CAPSULE PO SCH ×2 (09:57→21:10)
[2021-10-02] MEDS: ASPIRIN COATED 81 MG TABLET.EC PO SCH (09:57)
[2021-10-02] MEDS: amLODIPine BESYLATE 5 MG TABLET (FP) PO SCH (09:58)
[2021-10-02] MEDS: LISINOPRIL 10 MG TABLET PO SCH (09:58)
[2021-10-02] MEDS: PRENATAL VITAMINS W/ FOLIC ACID TABLET (FP) PO SCH (09:58)
[2021-10-02] MEDS: FAMOTIDINE 20 MG TABLET PO SCH ×2 (09:58→21:10)
[2021-10-02] MEDS: AMMONIUM LACTATE 12% LOTION 225 GM BOTTLE TP SCH (09:58)
[2021-10-02] MEDS: MAG HYDROX/AL HYDROX/SIMETH 30 ML UNIT-DOSE CUP PO PRN (12:07)
[2021-10-02] MEDS: traZODone HCL 50 MG TABLET (FP) PO SCH (21:10)
[2021-10-02] MEDS: THIAMINE HCL 100 MG TABLET (FP) PO SCH (21:10)
[2021-10-02] MEDS: OLANZapine 7.5 MG TABLET PO SCH (21:11)
[2021-10-03] MEDS ORDERED: methaDONE HCL 40 MG DISPERSABLE TABLET ONE (03:30)
[2021-10-03] MEDS ORDERED: methaDONE HCL 10 MG TABLET ONE (03:30)
[2021-10-03] MEDS ORDERED: methaDONE HCL 40 MG DISPERSABLE TABLET PO SCH (06:00)
[2021-10-03] MEDS: metFORMIN HCL 500 MG TABLET (FP) PO SCH (06:12)
[2021-10-03] MEDS: GABAPENTIN 400 MG CAPSULE PO SCH ×3 (06:12→21:14)
[2021-10-03] MEDS: hydrOXYzine PAMOATE 25 MG CAPSULE (FP) PO PRN (06:13)
[2021-10-03] MEDS: NICOTINE 10 MG CARTRIDGE (INHALER) IH PRN (07:14)
[2021-10-03] MEDS: NICOTINE 7 MG/24 HOURS TOPICAL PATCH TD SCH (09:38)
[2021-10-03] MEDS: PRENATAL VITAMINS W/ FOLIC ACID TABLET (FP) PO SCH (09:39)
[2021-10-03] MEDS: ASPIRIN COATED 81 MG TABLET.EC PO SCH (09:39)
[2021-10-03] MEDS: FENOFIBRIC ACID 45 MG CAP PO SCH (09:39)
[2021-10-03] MEDS: LITHIUM CARBONATE 300 MG CAPSULE PO SCH ×2 (09:39→21:14)
[2021-10-03] MEDS: LISINOPRIL 10 MG TABLET PO SCH (09:40)
[2021-10-03] MEDS: AMMONIUM LACTATE 12% LOTION 225 GM BOTTLE TP SCH (09:40)
[2021-10-03] MEDS: amLODIPine BESYLATE 5 MG TABLET (FP) PO SCH (09:40)
[2021-10-03] MEDS: FAMOTIDINE 20 MG TABLET PO SCH ×2 (09:40→21:25)
[2021-10-03] MEDS: THIAMINE HCL 100 MG TABLET (FP) PO SCH (21:14)
[2021-10-03] MEDS: traZODone HCL 50 MG TABLET (FP) PO SCH (21:14)
[2021-10-03] MEDS: OLANZapine 7.5 MG TABLET PO SCH (21:15)
[2021-10-04] MEDS ORDERED: methaDONE HCL 10 MG TABLET ONE (03:25)
[2021-10-04] MEDS ORDERED: methaDONE HCL 40 MG DISPERSABLE TABLET ONE (03:26)
[2021-10-04] MEDS: GABAPENTIN 400 MG CAPSULE PO SCH (06:16)
[2021-10-04] MEDS: metFORMIN HCL 500 MG TABLET (FP) PO SCH (06:16)
[2021-10-04] MEDS: hydrOXYzine PAMOATE 25 MG CAPSULE (FP) PO PRN (06:17)
[2021-10-04] MEDS: NICOTINE 10 MG CARTRIDGE (INHALER) IH PRN (07:34)
[2021-10-04] MEDS: ASPIRIN COATED 81 MG TABLET.EC PO SCH (09:05)
[2021-10-04] MEDS: AMMONIUM LACTATE 12% LOTION 225 GM BOTTLE TP SCH (09:05)
[2021-10-04] MEDS: LITHIUM CARBONATE 300 MG CAPSULE PO SCH (09:05)
[2021-10-04] MEDS: LISINOPRIL 10 MG TABLET PO SCH (09:06)
[2021-10-04] MEDS: amLODIPine BESYLATE 5 MG TABLET (FP) PO SCH (09:06)
[2021-10-04] MEDS: NICOTINE 7 MG/24 HOURS TOPICAL PATCH TD SCH (09:06)
[2021-10-04] MEDS: PRENATAL VITAMINS W/ FOLIC ACID TABLET (FP) PO SCH (09:06)
[2021-10-04] MEDS: FAMOTIDINE 20 MG TABLET PO SCH (09:06)
[2021-10-04] MEDS: FENOFIBRIC ACID 45 MG CAP PO SCH (09:07)
[2021-10-04 09:15] VITALS: BP 120/75; PULSE 99; TEMP 96.8
== END 2021-10-04 09:28 | disposition home or self-care (01) | DRG 772 ==
LOC: YASAS 13:08 → Y3E 13:09
PROVIDERS: ADMIT Allergy & Immunology; ATTEND Allergy & Immunology
PROC: HZ42ZZZ Group Counseling for Substance Abuse Treatment, Cognitive-Behavioral (ICD-10-PCS; principal; 2021-09-03)
DX: F11.20 Opioid dependence, uncomplicated (principal); F10.20 Alcohol dependence, uncomplicated; F13.20 Sedative, hypnotic or anxiolytic dependence, uncomplicated; F14.20 Cocaine dependence, uncomplicated; F12.20 Cannabis dependence, uncomplicated; F17.210 Nicotine dependence, cigarettes, uncomplicated; F19.24 Other psychoactive substance dependence with psychoactive substance-induced mood disorder; F31.9 Bipolar disorder, unspecified; I10 Essential (primary) hypertension; R10.13 Epigastric pain; E66.9 Obesity, unspecified; Z68.39 Body mass index [BMI] 39.0-39.9, adult; Z88.8 Allergy status to other drugs, medicaments and biological substances; Z91.013 Allergy to seafood
CPT/HCPCS: 36415; 80178; 82962; C9803-CS; U0003; U0005

== ENCOUNTER 2021-11-12 10:32 | Inpatient (IN) | payer OTHER ==
[2021-11-12 10:52] VITALS: BMI 41.5
[2021-11-12] MEDS ORDERED: MAG HYDROX/AL HYDROX/SIMETH 30 ML UNIT-DOSE CUP PO PRN (11:05)
[2021-11-12] MEDS ORDERED: LOPERAMIDE HCL 2 MG CAPSULE PO PRN (11:05)
[2021-11-12] MEDS ORDERED: MAGNESIUM CITRATE 300 ML BOTTLE PO PRN (11:05)
[2021-11-12] MEDS ORDERED: IBUPROFEN 400 MG TABLET (FP) PO PRN (11:05)
[2021-11-12] MEDS ORDERED: guaiFENesin 200 MG/10 ML 10 ML UNIT-DOSE CUPS PO PRN (11:05)
[2021-11-12] MEDS ORDERED: P-EPHED 60MG/TRIPROLIDI 2.5MG TABLET PO PRN (11:05)
[2021-11-12] MEDS ORDERED: ACETAMINOPHEN 325 MG TABLET (FP) PO PRN (11:05)
[2021-11-12] MEDS ORDERED: MAGNESIUM HYDROX 2400MG/30ML ORAL SUSPENSION 30 ML CUP PO PRN (11:05)
[2021-11-12] MEDS ORDERED: NICOTINE 10 MG CARTRIDGE (INHALER) IH PRN (11:05)
[2021-11-12] MEDS ORDERED: NICOTINE 7 MG/24 HOURS TOPICAL PATCH TD SCH (11:15)
[2021-11-12] MEDS ORDERED: hydrOXYzine PAMOATE 25 MG CAPSULE (FP) PO SCH (14:00)
[2021-11-12 14:01] LABS: HEMATOCRIT 33.8 % (35.4-49); HEMOGLOBIN 11.1 GM/dL (11.7-16.9); MCH 28.2 pg (25.7-33.7); MCHC 32.8 g/dl (32.0-35.9); MEAN CELL VOLUME 85.9 fl (80-96); MEAN PLT VOLUME 9.3 fl (7.5-11.1); PLATELET COUNT 183 10^3/uL (134-434); RBC 3.94 M/mm3 (4.00-5.60); RDW 14.9 % (11.9-15.9); WHITE BLOOD COUNT 12.4 K/mm3 (4.0-10.0)
[2021-11-12 14:05] LABS: ALBUMIN 4.4 g/dl (3.4-5.0); BLOOD UREA NITROGEN 11.4 mg/dL (7-18); CALCIUM 9.6 mg/dL (8.5-10.1)
[2021-11-12 14:08] LABS: CREATININE 0.9 mg/dL (0.55-1.3)
[2021-11-12 14:10] LABS: BILIRUBIN,TOTAL 0.5 mg/dL (0.2-1); TOT PROT 7.8 g/dl (6.4-8.2)
[2021-11-12] MEDS: PRENATAL VITAMINS W/ FOLIC ACID TABLET (FP) PO SCH (14:57)
[2021-11-12] MEDS: hydrOXYzine PAMOATE 25 MG CAPSULE (FP) PO PRN (14:58)
[2021-11-12] MEDS: NICOTINE 14 MG/24 HOURS TOPICAL PATCH TD SCH (14:58)
[2021-11-12 15:39] LABS: SYPHILIS W/ RPR CONF NON-REACTIVE (NONREACTIVE)
[2021-11-12] MEDS: risperiDONE 2 MG TABLET PO SCH (21:27)
[2021-11-12] MEDS: MELATONIN 5 MG TABLETS PO SCH (21:27)
[2021-11-12] MEDS: LITHIUM CARBONATE 300 MG CAPSULE PO SCH (21:27)
[2021-11-12] MEDS: THIAMINE HCL 100 MG TABLET (FP) PO SCH (21:27)
[2021-11-12] MEDS: GABAPENTIN 300 MG CAPSULE PO PRN (21:28)
[2021-11-12] MEDS ORDERED: GABAPENTIN 300 MG CAPSULE PO SCH (22:00)
[2021-11-13 01:15] LABS: PH,URINE 5.5 (5.0-8.0); URINE APPEARANCE CLEAR; URINE BILIRUBIN NEGATIVE (NEGATIVE); URINE COLOR YELLOW; URINE GLUCOSE (UA) NEGATIVE (NEGATIVE); URINE KETONE TRACE (NEGATIVE); URINE LEUK ESTERASE NEGATIVE (NEGATIVE); URINE NITRITE NEGATIVE (NEGATIVE); URINE PROTEIN NEGATIVE (NEGATIVE)
[2021-11-13 01:21] LABS: EPI CELLS 1 /uL (0-25.1); HYALINE CASTS 0 /uL (0-3.1); URINE BACTERIA 1 /uL (0-1359); URINE RBC 5 /uL (0-23.9); URINE WBC 7 /uL (0-25.8)
[2021-11-13] MEDS: methaDONE HCL 40 MG DISPERSABLE TABLET PO SCH (06:16)
[2021-11-13] MEDS: metFORMIN HCL 500 MG TABLET (FP) PO SCH (06:20)
[2021-11-13] MEDS: GABAPENTIN 300 MG CAPSULE PO PRN ×2 (06:20→15:32)
[2021-11-13] MEDS: ASPIRIN COATED 81 MG TABLET.EC PO SCH (09:32)
[2021-11-13] MEDS: amLODIPine BESYLATE 5 MG TABLET (FP) PO SCH (09:32)
[2021-11-13] MEDS: LISINOPRIL 10 MG TABLET PO SCH (09:33)
[2021-11-13] MEDS: NICOTINE 14 MG/24 HOURS TOPICAL PATCH TD SCH (09:33)
[2021-11-13] MEDS: LITHIUM CARBONATE 300 MG CAPSULE PO SCH ×2 (09:33→21:13)
[2021-11-13] MEDS: PRENATAL VITAMINS W/ FOLIC ACID TABLET (FP) PO SCH (09:33)
[2021-11-13] MEDS: hydrOXYzine PAMOATE 25 MG CAPSULE (FP) PO PRN (09:34)
[2021-11-13] MEDS ORDERED: ARTIFICIAL TEARS (POLYVINYL ALCOHOL) OPTH DROPS OU PRN (12:17)
[2021-11-13] MEDS: risperiDONE 2 MG TABLET PO SCH (21:13)
[2021-11-13] MEDS: THIAMINE HCL 100 MG TABLET (FP) PO SCH (21:13)
[2021-11-13] MEDS: MELATONIN 5 MG TABLETS PO SCH (21:14)
[2021-11-14] MEDS: methaDONE HCL 40 MG DISPERSABLE TABLET PO SCH (06:03)
[2021-11-14] MEDS: metFORMIN HCL 500 MG TABLET (FP) PO SCH (06:05)
[2021-11-14] MEDS: GABAPENTIN 300 MG CAPSULE PO PRN ×2 (06:06→14:21)
[2021-11-14] MEDS: NICOTINE 14 MG/24 HOURS TOPICAL PATCH TD SCH (09:34)
[2021-11-14] MEDS: amLODIPine BESYLATE 5 MG TABLET (FP) PO SCH (09:35)
[2021-11-14] MEDS: LITHIUM CARBONATE 300 MG CAPSULE PO SCH ×2 (09:35→21:26)
[2021-11-14] MEDS: ASPIRIN COATED 81 MG TABLET.EC PO SCH (09:35)
[2021-11-14] MEDS: PRENATAL VITAMINS W/ FOLIC ACID TABLET (FP) PO SCH (09:35)
[2021-11-14] MEDS: LISINOPRIL 10 MG TABLET PO SCH (09:35)
[2021-11-14] MEDS: hydrOXYzine PAMOATE 25 MG CAPSULE (FP) PO PRN ×2 (09:36→21:26)
[2021-11-14] MEDS: THIAMINE HCL 100 MG TABLET (FP) PO SCH (21:26)
[2021-11-14] MEDS: MELATONIN 5 MG TABLETS PO SCH (21:26)
[2021-11-14] MEDS: risperiDONE 2 MG TABLET PO SCH (21:28)
[2021-11-15] MEDS: methaDONE HCL 40 MG DISPERSABLE TABLET PO SCH (06:10)
[2021-11-15] MEDS: GABAPENTIN 300 MG CAPSULE PO PRN ×2 (06:11→15:27)
[2021-11-15] MEDS: metFORMIN HCL 500 MG TABLET (FP) PO SCH (06:52)
[2021-11-15] MEDS: ASPIRIN COATED 81 MG TABLET.EC PO SCH (09:10)
[2021-11-15] MEDS: NICOTINE 14 MG/24 HOURS TOPICAL PATCH TD SCH (09:10)
[2021-11-15] MEDS: LITHIUM CARBONATE 300 MG CAPSULE PO SCH ×2 (09:10→21:28)
[2021-11-15] MEDS: hydrOXYzine PAMOATE 25 MG CAPSULE (FP) PO PRN (09:11)
[2021-11-15] MEDS: LISINOPRIL 10 MG TABLET PO SCH (09:11)
[2021-11-15] MEDS: PRENATAL VITAMINS W/ FOLIC ACID TABLET (FP) PO SCH (09:11)
[2021-11-15] MEDS: amLODIPine BESYLATE 5 MG TABLET (FP) PO SCH (09:11)
[2021-11-15] MEDS: THIAMINE HCL 100 MG TABLET (FP) PO SCH (21:28)
[2021-11-15] MEDS: risperiDONE 2 MG TABLET PO SCH (21:28)
[2021-11-15] MEDS: MELATONIN 5 MG TABLETS PO SCH (21:28)
[2021-11-16] MEDS: metFORMIN HCL 500 MG TABLET (FP) PO SCH (06:13)
[2021-11-16] MEDS: methaDONE HCL 40 MG DISPERSABLE TABLET PO SCH (06:14)
[2021-11-16] MEDS: GABAPENTIN 300 MG CAPSULE PO PRN ×3 (06:15→21:29)
[2021-11-16] MEDS: ASPIRIN COATED 81 MG TABLET.EC PO SCH (09:33)
[2021-11-16] MEDS: NICOTINE 14 MG/24 HOURS TOPICAL PATCH TD SCH (09:33)
[2021-11-16] MEDS: LITHIUM CARBONATE 300 MG CAPSULE PO SCH ×2 (09:33→21:30)
[2021-11-16] MEDS: PRENATAL VITAMINS W/ FOLIC ACID TABLET (FP) PO SCH (09:34)
[2021-11-16] MEDS: LISINOPRIL 10 MG TABLET PO SCH (09:34)
[2021-11-16] MEDS: hydrOXYzine PAMOATE 25 MG CAPSULE (FP) PO PRN (09:34)
[2021-11-16] MEDS: amLODIPine BESYLATE 5 MG TABLET (FP) PO SCH (09:34)
[2021-11-16] MEDS: MELATONIN 5 MG TABLETS PO SCH (21:30)
[2021-11-16] MEDS: risperiDONE 2 MG TABLET PO SCH (21:30)
[2021-11-16] MEDS: THIAMINE HCL 100 MG TABLET (FP) PO SCH (21:30)
[2021-11-17] MEDS: GABAPENTIN 300 MG CAPSULE PO PRN ×2 (06:07→13:19)
[2021-11-17] MEDS: metFORMIN HCL 500 MG TABLET (FP) PO SCH (06:07)
[2021-11-17] MEDS: methaDONE HCL 40 MG DISPERSABLE TABLET PO SCH (06:08)
[2021-11-17] MEDS: NICOTINE 14 MG/24 HOURS TOPICAL PATCH TD SCH (09:28)
[2021-11-17] MEDS: LITHIUM CARBONATE 300 MG CAPSULE PO SCH ×2 (09:29→21:38)
[2021-11-17] MEDS: LISINOPRIL 10 MG TABLET PO SCH (09:29)
[2021-11-17] MEDS: PRENATAL VITAMINS W/ FOLIC ACID TABLET (FP) PO SCH (09:30)
[2021-11-17] MEDS: ASPIRIN COATED 81 MG TABLET.EC PO SCH (09:30)
[2021-11-17] MEDS: amLODIPine BESYLATE 5 MG TABLET (FP) PO SCH (09:30)
[2021-11-17] MEDS: hydrOXYzine PAMOATE 25 MG CAPSULE (FP) PO PRN ×2 (09:31→21:39)
[2021-11-17] MEDS: MELATONIN 5 MG TABLETS PO SCH (21:38)
[2021-11-17] MEDS: THIAMINE HCL 100 MG TABLET (FP) PO SCH (21:38)
[2021-11-17] MEDS: risperiDONE 2 MG TABLET PO SCH (21:40)
[2021-11-18] MEDS: GABAPENTIN 300 MG CAPSULE PO PRN ×3 (06:09→21:48)
[2021-11-18] MEDS: metFORMIN HCL 500 MG TABLET (FP) PO SCH (06:09)
[2021-11-18] MEDS: methaDONE HCL 40 MG DISPERSABLE TABLET PO SCH (06:09)
[2021-11-18] MEDS: ASPIRIN COATED 81 MG TABLET.EC PO SCH (10:01)
[2021-11-18] MEDS: LITHIUM CARBONATE 300 MG CAPSULE PO SCH ×2 (10:01→21:46)
[2021-11-18] MEDS: NICOTINE 14 MG/24 HOURS TOPICAL PATCH TD SCH (10:01)
[2021-11-18] MEDS: hydrOXYzine PAMOATE 25 MG CAPSULE (FP) PO PRN ×2 (10:02→21:48)
[2021-11-18] MEDS: PRENATAL VITAMINS W/ FOLIC ACID TABLET (FP) PO SCH (10:02)
[2021-11-18] MEDS: amLODIPine BESYLATE 5 MG TABLET (FP) PO SCH (10:29)
[2021-11-18] MEDS: LISINOPRIL 10 MG TABLET PO SCH (10:29)
[2021-11-18] MEDS: risperiDONE 2 MG TABLET PO SCH (21:46)
[2021-11-18] MEDS: MELATONIN 5 MG TABLETS PO SCH (21:46)
[2021-11-18] MEDS: THIAMINE HCL 100 MG TABLET (FP) PO SCH (21:47)
[2021-11-19] MEDS: GABAPENTIN 300 MG CAPSULE PO PRN ×2 (06:17→14:29)
[2021-11-19] MEDS: methaDONE HCL 40 MG DISPERSABLE TABLET PO SCH (06:18)
[2021-11-19] MEDS: metFORMIN HCL 500 MG TABLET (FP) PO SCH (06:18)
[2021-11-19] MEDS: amLODIPine BESYLATE 5 MG TABLET (FP) PO SCH (09:49)
[2021-11-19] MEDS: ASPIRIN COATED 81 MG TABLET.EC PO SCH (09:49)
[2021-11-19] MEDS: hydrOXYzine PAMOATE 25 MG CAPSULE (FP) PO PRN ×2 (09:49→21:22)
[2021-11-19] MEDS: LITHIUM CARBONATE 300 MG CAPSULE PO SCH ×2 (09:50→21:21)
[2021-11-19] MEDS: NICOTINE 14 MG/24 HOURS TOPICAL PATCH TD SCH (09:50)
[2021-11-19] MEDS: PRENATAL VITAMINS W/ FOLIC ACID TABLET (FP) PO SCH (09:50)
[2021-11-19] MEDS: LISINOPRIL 10 MG TABLET PO SCH (09:50)
[2021-11-19] MEDS: THIAMINE HCL 100 MG TABLET (FP) PO SCH (21:21)
[2021-11-19] MEDS: MELATONIN 5 MG TABLETS PO SCH (21:21)
[2021-11-19] MEDS: risperiDONE 2 MG TABLET PO SCH (21:22)
[2021-11-20] MEDS: GABAPENTIN 300 MG CAPSULE PO PRN ×2 (06:08→15:57)
[2021-11-20] MEDS: metFORMIN HCL 500 MG TABLET (FP) PO SCH (06:08)
[2021-11-20] MEDS: methaDONE HCL 40 MG DISPERSABLE TABLET PO SCH (06:08)
[2021-11-20] MEDS: amLODIPine BESYLATE 5 MG TABLET (FP) PO SCH (09:17)
[2021-11-20] MEDS: ASPIRIN COATED 81 MG TABLET.EC PO SCH (09:17)
[2021-11-20] MEDS: LITHIUM CARBONATE 300 MG CAPSULE PO SCH ×2 (09:17→21:25)
[2021-11-20] MEDS: NICOTINE 14 MG/24 HOURS TOPICAL PATCH TD SCH (09:17)
[2021-11-20] MEDS: LISINOPRIL 10 MG TABLET PO SCH (09:18)
[2021-11-20] MEDS: PRENATAL VITAMINS W/ FOLIC ACID TABLET (FP) PO SCH (09:18)
[2021-11-20] MEDS: hydrOXYzine PAMOATE 25 MG CAPSULE (FP) PO PRN (09:18)
[2021-11-20] MEDS: THIAMINE HCL 100 MG TABLET (FP) PO SCH (21:25)
[2021-11-20] MEDS: risperiDONE 2 MG TABLET PO SCH (21:25)
[2021-11-20] MEDS: MELATONIN 5 MG TABLETS PO SCH (21:25)
[2021-11-21] MEDS: GABAPENTIN 300 MG CAPSULE PO PRN ×3 (06:04→21:09)
[2021-11-21] MEDS: methaDONE HCL 40 MG DISPERSABLE TABLET PO SCH (06:04)
[2021-11-21] MEDS: metFORMIN HCL 500 MG TABLET (FP) PO SCH (06:04)
[2021-11-21] MEDS: amLODIPine BESYLATE 5 MG TABLET (FP) PO SCH (09:10)
[2021-11-21] MEDS: LITHIUM CARBONATE 300 MG CAPSULE PO SCH ×2 (09:10→21:09)
[2021-11-21] MEDS: NICOTINE 14 MG/24 HOURS TOPICAL PATCH TD SCH (09:10)
[2021-11-21] MEDS: ASPIRIN COATED 81 MG TABLET.EC PO SCH (09:10)
[2021-11-21] MEDS: LISINOPRIL 10 MG TABLET PO SCH (09:10)
[2021-11-21] MEDS: PRENATAL VITAMINS W/ FOLIC ACID TABLET (FP) PO SCH (09:11)
[2021-11-21] MEDS: hydrOXYzine PAMOATE 25 MG CAPSULE (FP) PO PRN (09:11)
[2021-11-21] MEDS: THIAMINE HCL 100 MG TABLET (FP) PO SCH (21:08)
[2021-11-21] MEDS: MELATONIN 5 MG TABLETS PO SCH (21:08)
[2021-11-21] MEDS: risperiDONE 2 MG TABLET PO SCH (21:09)
[2021-11-22] MEDS: metFORMIN HCL 500 MG TABLET (FP) PO SCH (06:12)
[2021-11-22] MEDS: methaDONE HCL 40 MG DISPERSABLE TABLET PO SCH (06:12)
[2021-11-22] MEDS: GABAPENTIN 300 MG CAPSULE PO PRN ×2 (06:12→14:24)
[2021-11-22] MEDS: LISINOPRIL 10 MG TABLET PO SCH (09:28)
[2021-11-22] MEDS: amLODIPine BESYLATE 5 MG TABLET (FP) PO SCH (09:28)
[2021-11-22] MEDS: ASPIRIN COATED 81 MG TABLET.EC PO SCH (09:29)
[2021-11-22] MEDS: PRENATAL VITAMINS W/ FOLIC ACID TABLET (FP) PO SCH (09:29)
[2021-11-22] MEDS: LITHIUM CARBONATE 300 MG CAPSULE PO SCH ×2 (09:29→21:29)
[2021-11-22] MEDS: NICOTINE 14 MG/24 HOURS TOPICAL PATCH TD SCH (09:29)
[2021-11-22] MEDS: hydrOXYzine PAMOATE 25 MG CAPSULE (FP) PO PRN (09:30)
[2021-11-22] MEDS: THIAMINE HCL 100 MG TABLET (FP) PO SCH (21:30)
[2021-11-22] MEDS: risperiDONE 2 MG TABLET PO SCH (21:30)
[2021-11-22] MEDS: MELATONIN 5 MG TABLETS PO SCH (21:30)
[2021-11-23] MEDS: metFORMIN HCL 500 MG TABLET (FP) PO SCH (06:13)
[2021-11-23] MEDS: GABAPENTIN 300 MG CAPSULE PO PRN ×2 (06:13→14:19)
[2021-11-23] MEDS: methaDONE HCL 40 MG DISPERSABLE TABLET PO SCH (06:14)
[2021-11-23] MEDS: LITHIUM CARBONATE 300 MG CAPSULE PO SCH ×2 (09:35→21:02)
[2021-11-23] MEDS: LISINOPRIL 10 MG TABLET PO SCH (09:35)
[2021-11-23] MEDS: ASPIRIN COATED 81 MG TABLET.EC PO SCH (09:35)
[2021-11-23] MEDS: amLODIPine BESYLATE 5 MG TABLET (FP) PO SCH (09:35)
[2021-11-23] MEDS: hydrOXYzine PAMOATE 25 MG CAPSULE (FP) PO PRN (09:35)
[2021-11-23] MEDS: PRENATAL VITAMINS W/ FOLIC ACID TABLET (FP) PO SCH (09:35)
[2021-11-23] MEDS: NICOTINE 14 MG/24 HOURS TOPICAL PATCH TD SCH (09:36)
[2021-11-23] MEDS: THIAMINE HCL 100 MG TABLET (FP) PO SCH (21:02)
[2021-11-23] MEDS: risperiDONE 2 MG TABLET PO SCH (21:02)
[2021-11-23] MEDS: MELATONIN 5 MG TABLETS PO SCH (21:02)
[2021-11-24] MEDS: GABAPENTIN 300 MG CAPSULE PO PRN ×3 (06:13→21:04)
[2021-11-24] MEDS: methaDONE HCL 40 MG DISPERSABLE TABLET PO SCH (06:13)
[2021-11-24] MEDS: metFORMIN HCL 500 MG TABLET (FP) PO SCH (06:13)
[2021-11-24] MEDS: PRENATAL VITAMINS W/ FOLIC ACID TABLET (FP) PO SCH (09:19)
[2021-11-24] MEDS: hydrOXYzine PAMOATE 25 MG CAPSULE (FP) PO PRN (09:20)
[2021-11-24] MEDS: LITHIUM CARBONATE 300 MG CAPSULE PO SCH ×2 (09:20→21:05)
[2021-11-24] MEDS: LISINOPRIL 10 MG TABLET PO SCH (09:20)
[2021-11-24] MEDS: ASPIRIN COATED 81 MG TABLET.EC PO SCH (09:20)
[2021-11-24] MEDS: NICOTINE 14 MG/24 HOURS TOPICAL PATCH TD SCH (09:20)
[2021-11-24] MEDS: amLODIPine BESYLATE 5 MG TABLET (FP) PO SCH (09:20)
[2021-11-24] MEDS: THIAMINE HCL 100 MG TABLET (FP) PO SCH (21:04)
[2021-11-24] MEDS: MELATONIN 5 MG TABLETS PO SCH (21:04)
[2021-11-24] MEDS: risperiDONE 2 MG TABLET PO SCH (21:05)
[2021-11-25] MEDS: GABAPENTIN 300 MG CAPSULE PO PRN ×3 (06:13→21:25)
[2021-11-25] MEDS: metFORMIN HCL 500 MG TABLET (FP) PO SCH (06:13)
[2021-11-25] MEDS: methaDONE HCL 40 MG DISPERSABLE TABLET PO SCH (06:15)
[2021-11-25] MEDS: amLODIPine BESYLATE 5 MG TABLET (FP) PO SCH (09:36)
[2021-11-25] MEDS: NICOTINE 14 MG/24 HOURS TOPICAL PATCH TD SCH (09:36)
[2021-11-25] MEDS: hydrOXYzine PAMOATE 25 MG CAPSULE (FP) PO PRN (09:36)
[2021-11-25] MEDS: PRENATAL VITAMINS W/ FOLIC ACID TABLET (FP) PO SCH (09:36)
[2021-11-25] MEDS: ASPIRIN COATED 81 MG TABLET.EC PO SCH (09:36)
[2021-11-25] MEDS: LISINOPRIL 10 MG TABLET PO SCH (09:36)
[2021-11-25] MEDS: LITHIUM CARBONATE 300 MG CAPSULE PO SCH ×2 (09:37→21:25)
[2021-11-25] MEDS: THIAMINE HCL 100 MG TABLET (FP) PO SCH (21:25)
[2021-11-25] MEDS: MELATONIN 5 MG TABLETS PO SCH (21:25)
[2021-11-25] MEDS: risperiDONE 2 MG TABLET PO SCH (21:26)
[2021-11-26] MEDS: metFORMIN HCL 500 MG TABLET (FP) PO SCH (06:14)
[2021-11-26] MEDS: GABAPENTIN 300 MG CAPSULE PO PRN ×3 (06:14→21:17)
[2021-11-26] MEDS: methaDONE HCL 40 MG DISPERSABLE TABLET PO SCH (06:14)
[2021-11-26] MEDS: LISINOPRIL 10 MG TABLET PO SCH (09:47)
[2021-11-26] MEDS: PRENATAL VITAMINS W/ FOLIC ACID TABLET (FP) PO SCH (09:47)
[2021-11-26] MEDS: ASPIRIN COATED 81 MG TABLET.EC PO SCH (09:47)
[2021-11-26] MEDS: LITHIUM CARBONATE 300 MG CAPSULE PO SCH ×2 (09:47→21:17)
[2021-11-26] MEDS: amLODIPine BESYLATE 5 MG TABLET (FP) PO SCH (09:47)
[2021-11-26] MEDS: hydrOXYzine PAMOATE 25 MG CAPSULE (FP) PO PRN (09:48)
[2021-11-26] MEDS: NICOTINE 14 MG/24 HOURS TOPICAL PATCH TD SCH (09:49)
[2021-11-26] MEDS: MELATONIN 5 MG TABLETS PO SCH (21:17)
[2021-11-26] MEDS: THIAMINE HCL 100 MG TABLET (FP) PO SCH (21:17)
[2021-11-26] MEDS: risperiDONE 2 MG TABLET PO SCH (21:18)
[2021-11-27] MEDS: metFORMIN HCL 500 MG TABLET (FP) PO SCH (06:01)
[2021-11-27] MEDS: GABAPENTIN 300 MG CAPSULE PO PRN ×2 (06:02→14:00)
[2021-11-27] MEDS: methaDONE HCL 40 MG DISPERSABLE TABLET PO SCH (06:02)
[2021-11-27] MEDS: NICOTINE 14 MG/24 HOURS TOPICAL PATCH TD SCH (09:27)
[2021-11-27] MEDS: LISINOPRIL 10 MG TABLET PO SCH (09:27)
[2021-11-27] MEDS: amLODIPine BESYLATE 5 MG TABLET (FP) PO SCH (09:27)
[2021-11-27] MEDS: hydrOXYzine PAMOATE 25 MG CAPSULE (FP) PO PRN (09:27)
[2021-11-27] MEDS: ASPIRIN COATED 81 MG TABLET.EC PO SCH (09:27)
[2021-11-27] MEDS: LITHIUM CARBONATE 300 MG CAPSULE PO SCH ×2 (09:27→21:00)
[2021-11-27] MEDS: PRENATAL VITAMINS W/ FOLIC ACID TABLET (FP) PO SCH (09:28)
[2021-11-27] MEDS: THIAMINE HCL 100 MG TABLET (FP) PO SCH (21:00)
[2021-11-27] MEDS: risperiDONE 2 MG TABLET PO SCH (21:01)
[2021-11-27] MEDS: MELATONIN 5 MG TABLETS PO SCH (21:02)
[2021-11-28] MEDS: methaDONE HCL 40 MG DISPERSABLE TABLET PO SCH (06:03)
[2021-11-28] MEDS: metFORMIN HCL 500 MG TABLET (FP) PO SCH (06:04)
[2021-11-28] MEDS: GABAPENTIN 300 MG CAPSULE PO PRN ×2 (06:04→21:04)
[2021-11-28] MEDS: PRENATAL VITAMINS W/ FOLIC ACID TABLET (FP) PO SCH (09:44)
[2021-11-28] MEDS: hydrOXYzine PAMOATE 25 MG CAPSULE (FP) PO PRN (09:44)
[2021-11-28] MEDS: amLODIPine BESYLATE 5 MG TABLET (FP) PO SCH (09:44)
[2021-11-28] MEDS: LITHIUM CARBONATE 300 MG CAPSULE PO SCH ×2 (09:44→21:04)
[2021-11-28] MEDS: ASPIRIN COATED 81 MG TABLET.EC PO SCH (09:44)
[2021-11-28] MEDS: NICOTINE 14 MG/24 HOURS TOPICAL PATCH TD SCH (09:44)
[2021-11-28] MEDS: LISINOPRIL 10 MG TABLET PO SCH (09:44)
[2021-11-28] MEDS: THIAMINE HCL 100 MG TABLET (FP) PO SCH (21:03)
[2021-11-28] MEDS: MELATONIN 5 MG TABLETS PO SCH (21:03)
[2021-11-28] MEDS: risperiDONE 2 MG TABLET PO SCH (21:53)
[2021-11-29] MEDS: metFORMIN HCL 500 MG TABLET (FP) PO SCH (06:09)
[2021-11-29] MEDS: methaDONE HCL 40 MG DISPERSABLE TABLET PO SCH (06:09)
[2021-11-29] MEDS: GABAPENTIN 300 MG CAPSULE PO PRN ×2 (06:09→21:16)
[2021-11-29] MEDS: LITHIUM CARBONATE 300 MG CAPSULE PO SCH ×2 (09:13→21:16)
[2021-11-29] MEDS: ASPIRIN COATED 81 MG TABLET.EC PO SCH (09:13)
[2021-11-29] MEDS: amLODIPine BESYLATE 5 MG TABLET (FP) PO SCH (09:14)
[2021-11-29] MEDS: NICOTINE 14 MG/24 HOURS TOPICAL PATCH TD SCH (09:14)
[2021-11-29] MEDS: hydrOXYzine PAMOATE 25 MG CAPSULE (FP) PO PRN (09:15)
[2021-11-29] MEDS: PRENATAL VITAMINS W/ FOLIC ACID TABLET (FP) PO SCH (09:15)
[2021-11-29] MEDS: LISINOPRIL 10 MG TABLET PO SCH (10:11)
[2021-11-29] MEDS: THIAMINE HCL 100 MG TABLET (FP) PO SCH (21:16)
[2021-11-29] MEDS: MELATONIN 5 MG TABLETS PO SCH (21:16)
[2021-11-29] MEDS: risperiDONE 1 MG TABLET PO SCH (21:17)
[2021-11-30] MEDS: GABAPENTIN 300 MG CAPSULE PO PRN ×2 (06:11→13:26)
[2021-11-30] MEDS: methaDONE HCL 40 MG DISPERSABLE TABLET PO SCH (06:11)
[2021-11-30] MEDS: metFORMIN HCL 500 MG TABLET (FP) PO SCH (06:11)
[2021-11-30] MEDS: NICOTINE 14 MG/24 HOURS TOPICAL PATCH TD SCH (09:40)
[2021-11-30] MEDS: LITHIUM CARBONATE 300 MG CAPSULE PO SCH ×2 (09:40→21:07)
[2021-11-30] MEDS: PRENATAL VITAMINS W/ FOLIC ACID TABLET (FP) PO SCH (09:41)
[2021-11-30] MEDS: ASPIRIN COATED 81 MG TABLET.EC PO SCH (09:41)
[2021-11-30] MEDS: LISINOPRIL 10 MG TABLET PO SCH (09:41)
[2021-11-30] MEDS: hydrOXYzine PAMOATE 25 MG CAPSULE (FP) PO PRN (09:41)
[2021-11-30] MEDS: amLODIPine BESYLATE 5 MG TABLET (FP) PO SCH (09:42)
[2021-11-30] MEDS: THIAMINE HCL 100 MG TABLET (FP) PO SCH (21:07)
[2021-11-30] MEDS: MELATONIN 5 MG TABLETS PO SCH (21:07)
[2021-11-30] MEDS: risperiDONE 1 MG TABLET PO SCH (21:08)
[2021-12-01] MEDS: methaDONE HCL 40 MG DISPERSABLE TABLET PO SCH (06:04)
[2021-12-01] MEDS: GABAPENTIN 300 MG CAPSULE PO PRN ×3 (06:04→21:06)
[2021-12-01] MEDS: metFORMIN HCL 500 MG TABLET (FP) PO SCH (06:04)
[2021-12-01] MEDS: ASPIRIN COATED 81 MG TABLET.EC PO SCH (09:39)
[2021-12-01] MEDS: LITHIUM CARBONATE 300 MG CAPSULE PO SCH ×2 (09:39→21:06)
[2021-12-01] MEDS: NICOTINE 14 MG/24 HOURS TOPICAL PATCH TD SCH (09:39)
[2021-12-01] MEDS: LISINOPRIL 10 MG TABLET PO SCH (09:40)
[2021-12-01] MEDS: amLODIPine BESYLATE 5 MG TABLET (FP) PO SCH (09:40)
[2021-12-01] MEDS: PRENATAL VITAMINS W/ FOLIC ACID TABLET (FP) PO SCH (09:40)
[2021-12-01] MEDS: hydrOXYzine PAMOATE 25 MG CAPSULE (FP) PO PRN (09:40)
[2021-12-01] MEDS: risperiDONE 1 MG TABLET PO SCH (21:06)
[2021-12-01] MEDS: MELATONIN 5 MG TABLETS PO SCH (21:06)
[2021-12-01] MEDS: THIAMINE HCL 100 MG TABLET (FP) PO SCH (21:06)
[2021-12-02] MEDS: metFORMIN HCL 500 MG TABLET (FP) PO SCH (06:09)
[2021-12-02] MEDS: methaDONE HCL 40 MG DISPERSABLE TABLET PO SCH (06:09)
[2021-12-02] MEDS: GABAPENTIN 300 MG CAPSULE PO PRN (06:10)
[2021-12-02 06:59] VITALS: TEMP 97.3
[2021-12-02 09:00] VITALS: BP 144/84; PULSE 104
[2021-12-02] MEDS: LITHIUM CARBONATE 300 MG CAPSULE PO SCH (09:05)
[2021-12-02] MEDS: ASPIRIN COATED 81 MG TABLET.EC PO SCH (09:06)
[2021-12-02] MEDS: LISINOPRIL 10 MG TABLET PO SCH (09:06)
[2021-12-02] MEDS: amLODIPine BESYLATE 5 MG TABLET (FP) PO SCH (09:06)
[2021-12-02] MEDS: PRENATAL VITAMINS W/ FOLIC ACID TABLET (FP) PO SCH (09:06)
[2021-12-02] MEDS: NICOTINE 14 MG/24 HOURS TOPICAL PATCH TD SCH (09:07)
== END 2021-12-02 09:13 | disposition home or self-care (01) | DRG 772 ==
LOC: YASAS 10:32 → Y3E 14:27
PROVIDERS: ADMIT Allergy & Immunology; ATTEND Psychiatry & Neurology Pain Medicine
PROC: HZ42ZZZ Group Counseling for Substance Abuse Treatment, Cognitive-Behavioral (ICD-10-PCS; principal; 2021-11-12)
DX: F10.20 Alcohol dependence, uncomplicated (principal); F13.20 Sedative, hypnotic or anxiolytic dependence, uncomplicated; F11.20 Opioid dependence, uncomplicated; F14.20 Cocaine dependence, uncomplicated; F17.210 Nicotine dependence, cigarettes, uncomplicated; F19.280 Other psychoactive substance dependence with psychoactive substance-induced anxiety disorder; F19.24 Other psychoactive substance dependence with psychoactive substance-induced mood disorder; F31.9 Bipolar disorder, unspecified; H04.123 Dry eye syndrome of bilateral lacrimal glands; I10 Essential (primary) hypertension; E11.9 Type 2 diabetes mellitus without complications; Z79.84 Long term (current) use of oral hypoglycemic drugs; Z56.0 Unemployment, unspecified; Z59.00 Homelessness unspecified
CPT/HCPCS: 36415; 80053; 80178; 81003; 82962; 85027; 86780; 86803; 87522; C9803-CS; J2794; U0003; U0005

== ENCOUNTER 2022-12-29 09:28 | Inpatient (IN) | payer OTHER ==
[2022-12-29 09:52] VITALS: BMI 39.9
[2022-12-29] MEDS ORDERED: ONDANSETRON *ODT* 4 MG TABLET SL PRN (10:20)
[2022-12-29] MEDS ORDERED: guaiFENesin 600 MG TABLET.ER (FP) PO PRN (10:20)
[2022-12-29] MEDS ORDERED: NALOXONE HCL (KLOXXADO) 8 MG SPRAY NS PRN (10:20)
[2022-12-29] MEDS ORDERED: IBUPROFEN 600 MG TABLET (FP) PO PRN (10:20)
[2022-12-29] MEDS ORDERED: NICOTINE 10 MG CARTRIDGE (INHALER) IH PRN (10:20)
[2022-12-29] MEDS ORDERED: BENZONATATE 200 MG CAPSULE PO PRN (10:20)
[2022-12-29] MEDS ORDERED: POLYETHYLENE GLYCOL (HEALTHYLAX) 3350 17 GM PACKET PO PRN (10:20)
[2022-12-29] MEDS ORDERED: NALOXONE HCL 0.4 MG/ML VIAL IM PRN (10:20)
[2022-12-29] MEDS ORDERED: METHOCARBAMOL 500 MG TABLET PO PRN (10:20)
[2022-12-29] MEDS ORDERED: BENZOCAINE/MENTHOL (CHLORASEPTIC ) LOZENGE MM PRN (10:20)
[2022-12-29] MEDS ORDERED: IBUPROFEN 400 MG TABLET (FP) PO PRN (10:20)
[2022-12-29] MEDS ORDERED: ACETAMINOPHEN 325 MG TABLET (FP) PO PRN (10:20)
[2022-12-29] MEDS ORDERED: MAG HYDROX/AL HYDROX/SIMETH 30 ML UNIT-DOSE CUP PO PRN (10:20)
[2022-12-29] MEDS ORDERED: MAGNESIUM HYDROX 2400MG/30ML ORAL SUSPENSION 30 ML CUP PO PRN (10:20)
[2022-12-29] MEDS ORDERED: LOPERAMIDE HCL 2 MG CAPSULE PO PRN (10:20)
[2022-12-29] MEDS ORDERED: DICYCLOMINE HCL 10 MG CAPSULE PO PRN (10:20)
[2022-12-29] MEDS ORDERED: NICOTINE 14 MG/24 HOURS TOPICAL PATCH TD ONE (11:00)
[2022-12-29] MEDS ORDERED: PRENATAL VITAMINS W/ FOLIC ACID TABLET (FP) PO ONE (11:01)
[2022-12-29] MEDS: NICOTINE 14 MG/24 HOURS TOPICAL PATCH TD SCH (11:10)
[2022-12-29] MEDS: INSULIN SLIDING SCALE (NOVOLOG) 1 VIAL SQ SCH ×2 (11:11→16:45)
[2022-12-29] MEDS: PRENATAL VITAMINS W/ FOLIC ACID TABLET (FP) PO SCH (11:11)
[2022-12-29] MEDS ORDERED: methaDONE HCL 10 MG TABLET PO SCH (12:00)
[2022-12-29] MEDS: OLANZapine 10 MG TABLET PO SCH (22:33)
[2022-12-29] MEDS: THIAMINE HCL 100 MG TABLET (FP) PO SCH (22:36)
[2022-12-29] MEDS: MELATONIN 5 MG TABLETS PO SCH (22:36)
[2022-12-30] MEDS: INSULIN SLIDING SCALE (NOVOLOG) 1 VIAL SQ SCH ×3 (06:28→16:55)
[2022-12-30 09:44] LABS: HEMATOCRIT 33.6 % (35.4-49); HEMOGLOBIN 11.3 GM/dL (11.7-16.9); MCH 27.2 pg (25.7-33.7); MCHC 33.5 g/dl (32.0-35.9); MEAN CELL VOLUME 81.2 fl (80-96); MEAN PLT VOLUME 9.4 fl (7.5-11.1); PLATELET COUNT 200 10^3/uL (134-434); RBC 4.13 M/mm3 (4.00-5.60); WHITE BLOOD COUNT 10.7 K/mm3 (4.0-10.0)
[2022-12-30 09:48] LABS: POTASSIUM 5.2 mmol/L (3.5-5.1)
[2022-12-30 09:56] LABS: ALBUMIN 4.2 g/dl (3.4-5.0); CALCIUM 9.4 mg/dL (8.5-10.1)
[2022-12-30 09:57] LABS: BLOOD UREA NITROGEN 11.9 mg/dL (7-18)
[2022-12-30 09:59] LABS: CREATININE 0.8 mg/dL (0.55-1.3)
[2022-12-30 10:01] LABS: BILIRUBIN,TOTAL 0.2 mg/dL (0.2-1); TOT PROT 7.6 g/dl (6.4-8.2)
[2022-12-30] MEDS: PRENATAL VITAMINS W/ FOLIC ACID TABLET (FP) PO SCH (10:16)
[2022-12-30] MEDS: NICOTINE 14 MG/24 HOURS TOPICAL PATCH TD SCH (10:16)
[2022-12-30] MEDS: LISINOPRIL 10 MG TABLET PO SCH (10:17)
[2022-12-30] MEDS: BISMUTH SUBSALICYLATE 262 MG/15 ML BTL PO PRN (10:17)
[2022-12-30] MEDS: amLODIPine BESYLATE 5 MG TABLET (FP) PO SCH (10:17)
[2022-12-30] MEDS: diazePAM 5 MG TABLET PO SCH ×3 (10:17→22:59)
[2022-12-30] MEDS: ASPIRIN COATED 81 MG TABLET.EC PO SCH (10:17)
[2022-12-30] MEDS: MELATONIN 5 MG TABLETS PO SCH (22:59)
[2022-12-30] MEDS: OLANZapine 10 MG TABLET PO SCH (22:59)
[2022-12-30] MEDS: THIAMINE HCL 100 MG TABLET (FP) PO SCH (22:59)
[2022-12-31] MEDS: diazePAM 5 MG TABLET PO SCH ×4 (05:03→22:39)
[2022-12-31] MEDS: INSULIN SLIDING SCALE (NOVOLOG) 1 VIAL SQ SCH ×3 (06:03→17:31)
[2022-12-31] MEDS: PRENATAL VITAMINS W/ FOLIC ACID TABLET (FP) PO SCH (10:17)
[2022-12-31] MEDS: NICOTINE 14 MG/24 HOURS TOPICAL PATCH TD SCH (10:18)
[2022-12-31] MEDS: ASPIRIN COATED 81 MG TABLET.EC PO SCH (10:18)
[2022-12-31] MEDS: amLODIPine BESYLATE 5 MG TABLET (FP) PO SCH (10:18)
[2022-12-31] MEDS: LISINOPRIL 10 MG TABLET PO SCH (10:18)
[2022-12-31] MEDS: BISMUTH SUBSALICYLATE 262 MG/15 ML BTL PO PRN (10:20)
[2022-12-31 10:37] LABS: BASO % 0.5 % (0-2.0); EOS % 4.5 % (0-4.5); HEMATOCRIT 37.4 % (35.4-49); HEMOGLOBIN 12.3 GM/dL (11.7-16.9); LYMPH % 27.9 % (8-40); MCH 26.5 pg (25.7-33.7); MCHC 32.8 g/dl (32.0-35.9); MEAN CELL VOLUME 80.8 fl (80-96); MEAN PLT VOLUME 8.5 fl (7.5-11.1); MONO % 6.1 % (3.8-10.2); PLATELET COUNT 215 10^3/uL (134-434); RBC 4.63 M/mm3 (4.00-5.60); RDW 18.1 % (11.9-15.9); WHITE BLOOD COUNT 10.4 K/mm3 (4.0-10.0)
[2022-12-31] MEDS: diazePAM 5 MG TABLET PO PRN (15:27)
[2022-12-31] MEDS: MELATONIN 5 MG TABLETS PO SCH (22:42)
[2022-12-31] MEDS: OLANZapine 10 MG TABLET PO SCH (22:42)
[2022-12-31] MEDS: THIAMINE HCL 100 MG TABLET (FP) PO SCH (22:42)
[2023-01-01] MEDS: diazePAM 5 MG TABLET PO SCH ×3 (05:23→22:04)
[2023-01-01] MEDS: INSULIN SLIDING SCALE (NOVOLOG) 1 VIAL SQ SCH ×3 (06:38→16:43)
[2023-01-01] MEDS: amLODIPine BESYLATE 5 MG TABLET (FP) PO SCH (10:16)
[2023-01-01] MEDS: LISINOPRIL 10 MG TABLET PO SCH (10:16)
[2023-01-01] MEDS: ASPIRIN COATED 81 MG TABLET.EC PO SCH (10:16)
[2023-01-01] MEDS: PRENATAL VITAMINS W/ FOLIC ACID TABLET (FP) PO SCH (10:16)
[2023-01-01] MEDS: diazePAM 5 MG TABLET PO PRN ×2 (10:17→17:42)
[2023-01-01] MEDS: NICOTINE 14 MG/24 HOURS TOPICAL PATCH TD SCH (10:17)
[2023-01-01] MEDS: hydrOXYzine PAMOATE 25 MG CAPSULE (FP) PO PRN (17:43)
[2023-01-01] MEDS: MELATONIN 5 MG TABLETS PO SCH (22:04)
[2023-01-01] MEDS: OLANZapine 10 MG TABLET PO SCH (22:05)
[2023-01-01] MEDS: THIAMINE HCL 100 MG TABLET (FP) PO SCH (22:05)
[2023-01-02] MEDS: diazePAM 5 MG TABLET PO SCH ×2 (05:32→17:28)
[2023-01-02] MEDS: INSULIN SLIDING SCALE (NOVOLOG) 1 VIAL SQ SCH ×3 (07:14→16:38)
[2023-01-02] MEDS: PRENATAL VITAMINS W/ FOLIC ACID TABLET (FP) PO SCH (09:40)
[2023-01-02] MEDS: diazePAM 5 MG TABLET PO PRN (09:41)
[2023-01-02] MEDS: NICOTINE 14 MG/24 HOURS TOPICAL PATCH TD SCH (10:22)
[2023-01-02] MEDS: amLODIPine BESYLATE 5 MG TABLET (FP) PO SCH (10:23)
[2023-01-02] MEDS: LISINOPRIL 10 MG TABLET PO SCH (10:23)
[2023-01-02] MEDS: ASPIRIN COATED 81 MG TABLET.EC PO SCH (10:23)
[2023-01-02] MEDS: hydrOXYzine PAMOATE 25 MG CAPSULE (FP) PO PRN (20:11)
[2023-01-02] MEDS: OLANZapine 10 MG TABLET PO SCH (22:29)
[2023-01-02] MEDS: THIAMINE HCL 100 MG TABLET (FP) PO SCH (22:29)
[2023-01-02] MEDS: MELATONIN 5 MG TABLETS PO SCH (22:29)
[2023-01-03] MEDS ORDERED: diazePAM 5 MG TABLET PO ONE (06:00)
[2023-01-03] MEDS: INSULIN SLIDING SCALE (NOVOLOG) 1 VIAL SQ SCH (06:16)
[2023-01-03 06:17] VITALS: RESP 18
[2023-01-03 09:03] VITALS: BP 150/82; PULSE 88; TEMP 97.8
[2023-01-03] MEDS: PRENATAL VITAMINS W/ FOLIC ACID TABLET (FP) PO SCH (09:27)
[2023-01-03] MEDS: LISINOPRIL 10 MG TABLET PO SCH (09:27)
[2023-01-03] MEDS: ASPIRIN COATED 81 MG TABLET.EC PO SCH (09:27)
[2023-01-03] MEDS: amLODIPine BESYLATE 5 MG TABLET (FP) PO SCH (09:27)
[2023-01-03] MEDS: NICOTINE 14 MG/24 HOURS TOPICAL PATCH TD SCH (09:29)
== END 2023-01-03 09:38 | disposition home or self-care (01) | DRG 773 ==
LOC: YASAS 09:28 → Y3N 10:52
PROVIDERS: ADMIT Allergy & Immunology; ATTEND Surgery
PROC: HZ2ZZZZ Detoxification Services for Substance Abuse Treatment (ICD-10-PCS; principal; 2022-12-29)
DX: F13.230 Sedative, hypnotic or anxiolytic dependence with withdrawal, uncomplicated (principal); F11.20 Opioid dependence, uncomplicated; F14.20 Cocaine dependence, uncomplicated; F17.210 Nicotine dependence, cigarettes, uncomplicated; F31.9 Bipolar disorder, unspecified; G47.00 Insomnia, unspecified; I10 Essential (primary) hypertension; E11.9 Type 2 diabetes mellitus without complications; Z79.84 Long term (current) use of oral hypoglycemic drugs; E66.9 Obesity, unspecified; Z68.39 Body mass index [BMI] 39.0-39.9, adult
CPT/HCPCS: 36415; 80053; 82962; 84132; 85025; 85027; 86780; 87635; 87811

== ENCOUNTER 2023-01-26 11:21 | Inpatient (IN) | payer OTHER ==
[2023-01-26 11:49] VITALS: BMI 40.7
[2023-01-26] MEDS ORDERED: POLYETHYLENE GLYCOL (HEALTHYLAX) 3350 17 GM PACKET PO PRN (13:53)
[2023-01-26] MEDS ORDERED: MAGNESIUM HYDROX 2400MG/30ML ORAL SUSPENSION 30 ML CUP PO PRN (13:53)
[2023-01-26] MEDS ORDERED: BISMUTH SUBSALICYLATE 262 MG/15 ML BTL PO PRN (13:53)
[2023-01-26] MEDS ORDERED: guaiFENesin 600 MG TABLET.ER (FP) PO PRN (13:53)
[2023-01-26] MEDS ORDERED: DICYCLOMINE HCL 10 MG CAPSULE PO PRN (13:53)
[2023-01-26] MEDS ORDERED: NALOXONE HCL 0.4 MG/ML VIAL IM PRN (13:53)
[2023-01-26] MEDS ORDERED: BENZOCAINE/MENTHOL (CHLORASEPTIC ) LOZENGE MM PRN (13:53)
[2023-01-26] MEDS ORDERED: ACETAMINOPHEN 325 MG TABLET (FP) PO PRN (13:53)
[2023-01-26] MEDS ORDERED: IBUPROFEN 400 MG TABLET (FP) PO PRN (13:53)
[2023-01-26] MEDS ORDERED: BENZONATATE 200 MG CAPSULE PO PRN (13:53)
[2023-01-26] MEDS ORDERED: NALOXONE HCL (KLOXXADO) 8 MG SPRAY NS PRN (13:53)
[2023-01-26] MEDS ORDERED: MAG HYDROX/AL HYDROX/SIMETH 30 ML UNIT-DOSE CUP PO PRN (13:53)
[2023-01-26] MEDS ORDERED: LOPERAMIDE HCL 2 MG CAPSULE PO PRN (13:53)
[2023-01-26] MEDS: ONDANSETRON *ODT* 4 MG TABLET SL PRN (14:44)
[2023-01-26] MEDS: PRENATAL VITAMINS W/ FOLIC ACID TABLET (FP) PO SCH (14:47)
[2023-01-26 16:51] LABS: POTASSIUM 4.4 mmol/L (3.5-5.1)
[2023-01-26 16:53] LABS: HEMATOCRIT 33.3 % (35.4-49); HEMOGLOBIN 11.2 GM/dL (11.7-16.9); MCH 26.9 pg (25.7-33.7); MCHC 33.6 g/dl (32.0-35.9); MEAN CELL VOLUME 80.2 fl (80-96); MEAN PLT VOLUME 8.9 fl (7.5-11.1); PLATELET COUNT 199 10^3/uL (134-434); RBC 4.16 M/mm3 (4.00-5.60); RDW 17.6 % (11.9-15.9); WHITE BLOOD COUNT 12.4 K/mm3 (4.0-10.0)
[2023-01-26 16:55] LABS: ALBUMIN 3.9 g/dl (3.4-5.0); BLOOD UREA NITROGEN 15.7 mg/dL (7-18)
[2023-01-26 16:59] LABS: CREATININE 0.9 mg/dL (0.55-1.3)
[2023-01-26 17:00] LABS: BILIRUBIN,TOTAL 0.1 mg/dL (0.2-1); TOT PROT 7.4 g/dl (6.4-8.2)
[2023-01-26] MEDS: MELATONIN 5 MG TABLETS PO SCH (22:04)
[2023-01-26] MEDS: hydrOXYzine PAMOATE 25 MG CAPSULE (FP) PO PRN (22:05)
[2023-01-26] MEDS: METHOCARBAMOL 500 MG TABLET PO PRN (22:05)
[2023-01-26] MEDS: THIAMINE HCL 100 MG TABLET (FP) PO SCH (22:05)
[2023-01-26] MEDS: GABAPENTIN 100 MG CAPSULE PO SCH (22:05)
[2023-01-26] MEDS: OLANZapine 10 MG TABLET PO SCH (22:05)
[2023-01-27] MEDS: GABAPENTIN 100 MG CAPSULE PO SCH ×3 (05:49→22:21)
[2023-01-27] MEDS ORDERED: methaDONE HCL 10 MG TABLET PO SCH (06:00)
[2023-01-27] MEDS ORDERED: methaDONE 80 MG, methaDONE 10 MG PO SCH (06:00)
[2023-01-27] MEDS ORDERED: metFORMIN HCL 500 MG TABLET (FP) PO SCH (07:00)
[2023-01-27] MEDS ORDERED: LORazepam 1 MG TABLET PO PRN (08:35)
[2023-01-27] MEDS: IBUPROFEN 600 MG TABLET (FP) PO PRN (08:48)
[2023-01-27] MEDS ORDERED: LORazepam 2 MG TABLET PO ONE (09:00)
[2023-01-27] MEDS: PRENATAL VITAMINS W/ FOLIC ACID TABLET (FP) PO SCH (09:41)
[2023-01-27] MEDS: amLODIPine BESYLATE 5 MG TABLET (FP) PO SCH (09:41)
[2023-01-27] MEDS: NICOTINE 14 MG/24 HOURS TOPICAL PATCH TD SCH (09:41)
[2023-01-27] MEDS: LISINOPRIL 10 MG TABLET PO SCH (09:41)
[2023-01-27] MEDS: LORazepam 2 MG TABLET PO SCH ×3 (10:10→22:22)
[2023-01-27] MEDS: OLANZapine 10 MG TABLET PO SCH (22:21)
[2023-01-27] MEDS: MELATONIN 5 MG TABLETS PO SCH (22:21)
[2023-01-27] MEDS: THIAMINE HCL 100 MG TABLET (FP) PO SCH (22:21)
[2023-01-28] MEDS: LORazepam 2 MG TABLET PO SCH ×4 (05:30→22:07)
[2023-01-28] MEDS: GABAPENTIN 100 MG CAPSULE PO SCH ×3 (05:43→22:06)
[2023-01-28] MEDS: NICOTINE 14 MG/24 HOURS TOPICAL PATCH TD SCH (10:11)
[2023-01-28] MEDS: PRENATAL VITAMINS W/ FOLIC ACID TABLET (FP) PO SCH (10:11)
[2023-01-28] MEDS: LISINOPRIL 10 MG TABLET PO SCH (10:11)
[2023-01-28] MEDS: amLODIPine BESYLATE 5 MG TABLET (FP) PO SCH (10:11)
[2023-01-28] MEDS: ONDANSETRON *ODT* 4 MG TABLET SL PRN (10:12)
[2023-01-28] MEDS: LACTULOSE 20 GM/30 ML UDC (FOR ORAL USE ONLY) PO SCH ×2 (13:15→22:06)
[2023-01-28 14:05] LABS: BASO % 0.8 % (0-2.0); EOS % 4.5 % (0-4.5); HEMATOCRIT 38.3 % (35.4-49); HEMOGLOBIN 12.2 GM/dL (11.7-16.9); LYMPH % 21.8 % (8-40); MCH 26.5 pg (25.7-33.7); MCHC 31.9 g/dl (32.0-35.9); MEAN CELL VOLUME 83.1 fl (80-96); MEAN PLT VOLUME 9.6 fl (7.5-11.1); MONO % 5.2 % (3.8-10.2); NEUT % 67.7 % (42.8-82.8); PLATELET COUNT 199 10^3/uL (134-434); RDW 17.2 % (11.9-15.9); WHITE BLOOD COUNT 11.5 K/mm3 (4.0-10.0)
[2023-01-28] MEDS: METHOCARBAMOL 500 MG TABLET PO PRN (17:12)
[2023-01-28] MEDS: OLANZapine 10 MG TABLET PO SCH (22:07)
[2023-01-28] MEDS: MELATONIN 5 MG TABLETS PO SCH (22:07)
[2023-01-28] MEDS: THIAMINE HCL 100 MG TABLET (FP) PO SCH (22:07)
[2023-01-28] MEDS: hydrOXYzine PAMOATE 25 MG CAPSULE (FP) PO PRN (22:07)
[2023-01-29] MEDS: LORazepam 1 MG TABLET PO SCH ×4 (05:12→22:12)
[2023-01-29] MEDS: LACTULOSE 20 GM/30 ML UDC (FOR ORAL USE ONLY) PO SCH ×3 (05:13→22:11)
[2023-01-29] MEDS: GABAPENTIN 100 MG CAPSULE PO SCH ×3 (05:13→22:11)
[2023-01-29] MEDS: hydrOXYzine PAMOATE 25 MG CAPSULE (FP) PO PRN ×2 (06:10→22:12)
[2023-01-29] MEDS: PRENATAL VITAMINS W/ FOLIC ACID TABLET (FP) PO SCH (10:12)
[2023-01-29] MEDS: NICOTINE 14 MG/24 HOURS TOPICAL PATCH TD SCH (10:12)
[2023-01-29] MEDS: amLODIPine BESYLATE 5 MG TABLET (FP) PO SCH (10:12)
[2023-01-29] MEDS: LISINOPRIL 10 MG TABLET PO SCH (10:13)
[2023-01-29] MEDS: IBUPROFEN 600 MG TABLET (FP) PO PRN (10:15)
[2023-01-29] MEDS ORDERED: cloNIDine HCL 0.1 MG TABLET PO PRN (15:29)
[2023-01-29] MEDS: MELATONIN 5 MG TABLETS PO SCH (22:11)
[2023-01-29] MEDS: THIAMINE HCL 100 MG TABLET (FP) PO SCH (22:11)
[2023-01-29] MEDS: METHOCARBAMOL 500 MG TABLET PO PRN (22:12)
[2023-01-29] MEDS: OLANZapine 10 MG TABLET PO SCH (22:12)
[2023-01-30] MEDS ORDERED: LORazepam 0.5 MG TABLET PO PRN
[2023-01-30] MEDS: LACTULOSE 20 GM/30 ML UDC (FOR ORAL USE ONLY) PO SCH ×3 (05:21→22:05)
[2023-01-30] MEDS: GABAPENTIN 100 MG CAPSULE PO SCH ×3 (05:24→22:04)
[2023-01-30] MEDS: LORazepam 0.5 MG TABLET PO SCH ×4 (05:25→22:05)
[2023-01-30] MEDS: amLODIPine BESYLATE 5 MG TABLET (FP) PO SCH (10:22)
[2023-01-30] MEDS: PRENATAL VITAMINS W/ FOLIC ACID TABLET (FP) PO SCH (10:22)
[2023-01-30] MEDS: NICOTINE 14 MG/24 HOURS TOPICAL PATCH TD SCH (10:22)
[2023-01-30] MEDS: LISINOPRIL 10 MG TABLET PO SCH (10:22)
[2023-01-30] MEDS: ONDANSETRON *ODT* 4 MG TABLET SL PRN (10:24)
[2023-01-30] MEDS: OLANZapine 10 MG TABLET PO SCH (22:04)
[2023-01-30] MEDS: MELATONIN 5 MG TABLETS PO SCH (22:04)
[2023-01-30] MEDS: THIAMINE HCL 100 MG TABLET (FP) PO SCH (22:05)
[2023-01-31] MEDS ORDERED: LORazepam 0.5 MG TABLET PO ONE (05:00)
[2023-01-31] MEDS: LACTULOSE 20 GM/30 ML UDC (FOR ORAL USE ONLY) PO SCH (05:12)
[2023-01-31] MEDS: GABAPENTIN 100 MG CAPSULE PO SCH (05:13)
[2023-01-31 06:51] VITALS: BP 153/87; PULSE 84; RESP 18; TEMP 97.7
[2023-01-31] MEDS: amLODIPine BESYLATE 5 MG TABLET (FP) PO SCH (09:04)
[2023-01-31] MEDS: LISINOPRIL 10 MG TABLET PO SCH (09:04)
[2023-01-31] MEDS: PRENATAL VITAMINS W/ FOLIC ACID TABLET (FP) PO SCH (09:04)
[2023-01-31] MEDS: NICOTINE 14 MG/24 HOURS TOPICAL PATCH TD SCH (09:04)
== END 2023-01-31 09:06 | disposition home or self-care (01) | DRG 773 ==
LOC: YASAS 11:21 → Y3N 13:21
PROVIDERS: ADMIT Allergy & Immunology; ATTEND Surgery
PROC: HZ2ZZZZ Detoxification Services for Substance Abuse Treatment (ICD-10-PCS; principal; 2023-01-26)
DX: F10.230 Alcohol dependence with withdrawal, uncomplicated (principal); F13.230 Sedative, hypnotic or anxiolytic dependence with withdrawal, uncomplicated; F11.20 Opioid dependence, uncomplicated; F14.20 Cocaine dependence, uncomplicated; F17.210 Nicotine dependence, cigarettes, uncomplicated; F19.94 Other psychoactive substance use, unspecified with psychoactive substance-induced mood disorder; I10 Essential (primary) hypertension; E11.9 Type 2 diabetes mellitus without complications; E72.20 Disorder of urea cycle metabolism, unspecified; E66.9 Obesity, unspecified; Z68.41 Body mass index [BMI] 40.0-44.9, adult; Z91.148 Patient's other noncompliance with medication regimen for other reason; Z88.8 Allergy status to other drugs, medicaments and biological substances; Z91.013 Allergy to seafood; Z86.59 Personal history of other mental and behavioral disorders; Z91.51 Personal history of suicidal behavior; Z62.810 Personal history of physical and sexual abuse in childhood; Z56.0 Unemployment, unspecified
CPT/HCPCS: 36415; 80053; 82140; 82962; 85025; 85027; 86780; 87635; 87811; Q0162

== ENCOUNTER 2023-09-19 13:42 | Inpatient (IN) | payer OTHER ==
[2023-09-19 14:45] VITALS: BMI 39.3
[2023-09-19] MEDS ORDERED: POLYETHYLENE GLYCOL (HEALTHYLAX) 3350 17 GM PACKET PO PRN (15:40)
[2023-09-19] MEDS ORDERED: BENZONATATE 200 MG CAPSULE PO PRN (15:40)
[2023-09-19] MEDS ORDERED: BENZOCAINE/MENTHOL (CHLORASEPTIC ) LOZENGE MM PRN (15:40)
[2023-09-19] MEDS ORDERED: MAGNESIUM HYDROX 2400MG/30ML ORAL SUSPENSION 30 ML CUP PO PRN (15:40)
[2023-09-19] MEDS ORDERED: NALOXONE HCL 0.4 MG/ML VIAL IM PRN (15:40)
[2023-09-19] MEDS ORDERED: IBUPROFEN 400 MG TABLET (FP) PO PRN (15:40)
[2023-09-19] MEDS ORDERED: LOPERAMIDE HCL 2 MG CAPSULE PO PRN (15:40)
[2023-09-19] MEDS ORDERED: guaiFENesin 600 MG TABLET.ER (FP) PO PRN (15:40)
[2023-09-19] MEDS ORDERED: NALOXONE HCL (KLOXXADO) 8 MG SPRAY NS PRN (15:40)
[2023-09-19] MEDS ORDERED: ACETAMINOPHEN 325 MG TABLET (FP) PO PRN (15:40)
[2023-09-19] MEDS ORDERED: NICOTINE POLACRILEX 2 MG GUM BUC PRN (15:45)
[2023-09-19] MEDS: INSULIN ASPART SLIDING SCALE (NOVOLOG) 1 VIAL SQ SCH (16:33)
[2023-09-19] MEDS: IBUPROFEN 600 MG TABLET (FP) PO PRN (17:27)
[2023-09-19 18:27] LABS: EPI CELLS 3 /uL (0-25.1); HYALINE CASTS 0 /uL (0-3.1); URINE APPEARANCE CLEAR; URINE BACTERIA 16 /uL (0-1359); URINE BILIRUBIN NEGATIVE (NEGATIVE); URINE COLOR YELLOW; URINE GLUCOSE (UA) NEGATIVE (NEGATIVE); URINE KETONE NEGATIVE (NEGATIVE); URINE LEUK ESTERASE NEGATIVE (NEGATIVE); URINE NITRITE NEGATIVE (NEGATIVE); URINE PROTEIN 3+ (NEGATIVE); URINE RBC 32 /uL (0-23.9); URINE WBC 19 /uL (0-25.8)
[2023-09-19] MEDS: MELATONIN 5 MG TABLETS PO SCH (22:38)
[2023-09-19] MEDS: THIAMINE HCL 100 MG TABLET (FP) PO SCH (22:38)
[2023-09-20] MEDS: hydrOXYzine PAMOATE 25 MG CAPSULE (FP) PO PRN (05:33)
[2023-09-20] MEDS ORDERED: methaDONE HCL 10 MG TABLET PO SCH (08:30)
[2023-09-20 08:58] LABS: HEMATOCRIT 32.4 % (35.4-49); HEMOGLOBIN 10.5 GM/dL (11.7-16.9); MCH 27.3 pg (25.7-33.7); MCHC 32.3 g/dl (32.0-35.9); MEAN CELL VOLUME 84.4 fl (80-96); MEAN PLT VOLUME 8.7 fl (7.5-11.1); PLATELET COUNT 164 10^3/uL (134-434); RBC 3.84 M/mm3 (4.00-5.60); RDW 16.6 % (11.9-15.9); WHITE BLOOD COUNT 6.6 K/mm3 (4.0-10.0)
[2023-09-20 09:15] LABS: CHLORIDE 106 mmol/L (98-107); POTASSIUM 4.4 mmol/L (3.5-5.1); SODIUM 141 mmol/L (136-145)
[2023-09-20 09:23] LABS: CREATININE 0.8 mg/dL (0.55-1.3); SGPT/ALT 19 U/L (13-61)
[2023-09-20] MEDS: PRENATAL VITAMINS W/ FOLIC ACID TABLET (FP) PO SCH (09:23)
[2023-09-20] MEDS: NICOTINE 21 MG/24 HOURS TOPICAL PATCH TD SCH (09:23)
[2023-09-20 09:24] LABS: ALBUMIN 3.2 g/dl (3.4-5.0); ANION GAP 5 mmol/L (4-13); BILIRUBIN,TOTAL 0.1 mg/dL (0.2-1); BLOOD UREA NITROGEN 9.8 mg/dL (7-18); CALCIUM 9.1 mg/dL (8.5-10.1); CO2 31 mmol/L (21-32); GLUCOSE,RANDOM 120 mg/dL (74-106); TOT PROT 6.4 g/dl (6.4-8.2)
[2023-09-20 09:26] LABS: ALK PHOS 88 U/L (45-117); SGOT/AST 12 U/L (15-37)
[2023-09-20] MEDS: amLODIPine BESYLATE 5 MG TABLET (FP) PO SCH (12:59)
[2023-09-20] MEDS: LISINOPRIL 10 MG TABLET PO SCH (12:59)
[2023-09-20] MEDS: FOLIC ACID 1 MG TABLET (FP) PO SCH (12:59)
[2023-09-20] MEDS: metFORMIN HCL 500 MG TABLET (FP) PO SCH (12:59)
[2023-09-20] MEDS: FERROUS SO4 325 MG TABLET (FP) PO SCH (12:59)
[2023-09-20] MEDS: GABAPENTIN 400 MG CAPSULE PO SCH (13:00)
[2023-09-20] MEDS: MIRTAZAPINE 15 MG TABLET (FP) PO SCH (21:13)
[2023-09-21] MEDS: SERTRALINE HCL 50 MG TABLET (FP) PO SCH (10:32)
[2023-09-22 07:48] VITALS: RESP 18
[2023-09-26 18:06] LABS: EPI CELLS 4 /uL (0-25.1); HYALINE CASTS 1 /uL (0-3.1); PH,URINE 5.5 (5.0-8.0); URINE APPEARANCE CLEAR; URINE BACTERIA 6 /uL (0-1359); URINE BILIRUBIN NEGATIVE (NEGATIVE); URINE COLOR YELLOW; URINE GLUCOSE (UA) NEGATIVE (NEGATIVE); URINE KETONE TRACE (NEGATIVE); URINE LEUK ESTERASE NEGATIVE (NEGATIVE); URINE NITRITE NEGATIVE (NEGATIVE); URINE PROTEIN 2+ (NEGATIVE); URINE RBC 3 /uL (0-23.9); URINE UROBILINOGEN 0.2 mg/dL (0.2-1.0); URINE WBC 14 /uL (0-25.8)
[2023-09-27 12:38] LABS: INR 1.01 (0.83-1.09); PROTHROMBIN TIME (PATIENT) 11.7 SEC (9.7-13.0)
[2023-09-28] MEDS ORDERED: methaDONE HCL 40 MG DISPERSABLE TABLET PO SCH (06:00)
[2023-09-29] MEDS: MAG HYDROX/AL HYDROX/SIMETH 30 ML UNIT-DOSE CUP PO PRN (15:03)
[2023-10-04 05:33] VITALS: TEMP 96.7
[2023-10-04 08:43] VITALS: BP 148/82; PULSE 98
== END 2023-10-04 09:10 | disposition home or self-care (01) | DRG 772 ==
LOC: YASAS 13:42 → Y3NR 16:41 → Y5N 09-20 13:16
PROVIDERS: ADMIT Allergy & Immunology; ATTEND Psychiatry & Neurology Pain Medicine
PROC: HZ42ZZZ Group Counseling for Substance Abuse Treatment, Cognitive-Behavioral (ICD-10-PCS; principal; 2023-09-19)
DX: F11.20 Opioid dependence, uncomplicated (principal); F14.20 Cocaine dependence, uncomplicated; F10.20 Alcohol dependence, uncomplicated; F12.20 Cannabis dependence, uncomplicated; F17.210 Nicotine dependence, cigarettes, uncomplicated; F31.9 Bipolar disorder, unspecified; F19.24 Other psychoactive substance dependence with psychoactive substance-induced mood disorder; G47.00 Insomnia, unspecified; I10 Essential (primary) hypertension; E11.9 Type 2 diabetes mellitus without complications; Z79.84 Long term (current) use of oral hypoglycemic drugs; Z88.8 Allergy status to other drugs, medicaments and biological substances
CPT/HCPCS: 36415; 80053; 80307; 81003; 82140; 82652; 82962; 83036; 83735; 85027; 85610; 86780; 87811; 93005; 93010

== ENCOUNTER 2023-11-08 11:53 | Inpatient (IN) | payer OTHER ==
[2023-11-08 13:22] VITALS: BMI 43.3
[2023-11-08] MEDS ORDERED: BENZOCAINE/MENTHOL (CHLORASEPTIC ) LOZENGE MM PRN (13:55)
[2023-11-08] MEDS ORDERED: ONDANSETRON *ODT* 4 MG TABLET SL PRN (13:55)
[2023-11-08] MEDS ORDERED: NALOXONE HCL (KLOXXADO) 8 MG SPRAY NS PRN (13:55)
[2023-11-08] MEDS ORDERED: DICYCLOMINE HCL 10 MG CAPSULE PO PRN (13:55)
[2023-11-08] MEDS ORDERED: MAGNESIUM HYDROX 2400MG/30ML ORAL SUSPENSION 30 ML CUP PO PRN (13:55)
[2023-11-08] MEDS ORDERED: LOPERAMIDE HCL 2 MG CAPSULE PO PRN (13:55)
[2023-11-08] MEDS ORDERED: hydrOXYzine PAMOATE 25 MG CAPSULE (FP) PO PRN (13:55)
[2023-11-08] MEDS ORDERED: NALOXONE HCL 0.4 MG/ML VIAL IM PRN (13:55)
[2023-11-08] MEDS ORDERED: NICOTINE POLACRILEX 4 MG LOZENGE BC PRN (13:55)
[2023-11-08] MEDS ORDERED: POLYETHYLENE GLYCOL (HEALTHYLAX) 3350 17 GM PACKET PO PRN (13:55)
[2023-11-08] MEDS ORDERED: BISMUTH SUBSALICYLATE 262 MG/15 ML BTL PO PRN (13:55)
[2023-11-08] MEDS ORDERED: guaiFENesin 600 MG TABLET.ER (FP) PO PRN (13:55)
[2023-11-08] MEDS ORDERED: IBUPROFEN 600 MG TABLET (FP) PO PRN (13:55)
[2023-11-08] MEDS ORDERED: IBUPROFEN 400 MG TABLET (FP) PO PRN (13:55)
[2023-11-08] MEDS ORDERED: ACETAMINOPHEN 325 MG TABLET (FP) PO PRN (13:55)
[2023-11-08] MEDS ORDERED: BENZONATATE 200 MG CAPSULE PO PRN (13:55)
[2023-11-08] MEDS ORDERED: GABAPENTIN 100 MG CAPSULE ONE (14:33)
[2023-11-08] MEDS: GABAPENTIN 400 MG CAPSULE PO SCH (14:41)
[2023-11-08] MEDS: PANTOPRAZOLE 40 MG TABLET PO SCH (14:50)
[2023-11-08] MEDS ORDERED: INSULIN (NOVOLOG) ASPART 100 UNITS/ML 10ML VIAL ONE (16:49)
[2023-11-08] MEDS: diazePAM 5 MG TABLET PO SCH (17:35)
[2023-11-08] MEDS: INSULIN ASPART SLIDING SCALE (NOVOLOG) 1 VIAL SQ SCH (17:37)
[2023-11-08] MEDS: METHOCARBAMOL 500 MG TABLET PO PRN (17:37)
[2023-11-08] MEDS: MELATONIN 5 MG TABLETS PO SCH (22:33)
[2023-11-08] MEDS: THIAMINE 100 MG TABLET PO SCH (22:34)
[2023-11-08] MEDS: MIRTAZAPINE 15 MG TABLET (FP) PO SCH (22:34)
[2023-11-09] MEDS ORDERED: methaDONE HCL 10 MG TABLET PO SCH (06:00)
[2023-11-09] MEDS: metFORMIN HCL 500 MG TABLET (FP) PO SCH (06:36)
[2023-11-09] MEDS: PRENATAL VITAMINS W/ FOLIC ACID TABLET (FP) PO SCH (10:09)
[2023-11-09] MEDS: NICOTINE 21 MG/24 HOURS TOPICAL PATCH TD SCH (10:10)
[2023-11-09] MEDS: SERTRALINE HCL 50 MG TABLET (FP) PO SCH (10:12)
[2023-11-09] MEDS: amLODIPine BESYLATE 5 MG TABLET (FP) PO SCH (10:12)
[2023-11-09] MEDS: MAG HYDROX/AL HYDROX/SIMETH 30 ML UNIT-DOSE CUP PO PRN (10:42)
[2023-11-09 11:41] LABS: HEMOGLOBIN 11.3 GM/dL (11.7-16.9); MCH 27.7 pg (25.7-33.7); MCHC 33.3 g/dl (32.0-35.9); MEAN CELL VOLUME 83.2 fl (80-96); MEAN PLT VOLUME 9.2 fl (7.5-11.1); PLATELET COUNT 239 10^3/uL (134-434); RBC 4.09 M/mm3 (4.00-5.60); WHITE BLOOD COUNT 12.1 K/mm3 (4.0-10.0)
[2023-11-09 11:43] LABS: POTASSIUM 4.1 mmol/L (3.5-5.1)
[2023-11-09 11:48] LABS: BLOOD UREA NITROGEN 13.8 mg/dL (7-18)
[2023-11-09 11:51] LABS: CREATININE 1.1 mg/dL (0.55-1.3)
[2023-11-09 11:53] LABS: BILIRUBIN,TOTAL 0.2 mg/dL (0.2-1); TOT PROT 7.6 g/dl (6.4-8.2)
[2023-11-09] MEDS ORDERED: INSULIN (NOVOLOG) ASPART 100 UNITS/ML 10ML VIAL ONE (17:25)
[2023-11-10] MEDS: diazePAM 5 MG TABLET PO SCH (05:52)
[2023-11-10] MEDS: diazePAM 5 MG TABLET PO PRN (17:47)
[2023-11-11] MEDS: diazePAM 5 MG TABLET PO SCH (05:51)
[2023-11-12] MEDS: diazePAM 5 MG TABLET PO ONE (05:52)
[2023-11-12 09:15] VITALS: BP 140/77; PULSE 88; RESP 18; TEMP 98.6
== END 2023-11-12 10:37 | disposition home or self-care (01) | DRG 773 ==
LOC: YASAS 11:53 → Y6N 14:16
PROVIDERS: ADMIT Allergy & Immunology; ATTEND Surgery
PROC: HZ2ZZZZ Detoxification Services for Substance Abuse Treatment (ICD-10-PCS; principal; 2023-11-08)
DX: F13.230 Sedative, hypnotic or anxiolytic dependence with withdrawal, uncomplicated (principal); F11.10 Opioid abuse, uncomplicated; F14.10 Cocaine abuse, uncomplicated; F12.20 Cannabis dependence, uncomplicated; F17.210 Nicotine dependence, cigarettes, uncomplicated; F25.1 Schizoaffective disorder, depressive type; F19.24 Other psychoactive substance dependence with psychoactive substance-induced mood disorder; F41.8 Other specified anxiety disorders; G47.00 Insomnia, unspecified; I10 Essential (primary) hypertension; K21.9 Gastro-esophageal reflux disease without esophagitis; Z88.8 Allergy status to other drugs, medicaments and biological substances
CPT/HCPCS: 36415; 80053; 80305; 80307; 82962; 83036; 85027; 86780; 93005; 93010

== ENCOUNTER 2024-02-23 17:11 | Inpatient (IN) | payer OTHER ==
[2024-02-23 18:07] VITALS: BMI 46.1
[2024-02-23] MEDS ORDERED: DICYCLOMINE HCL 10 MG CAPSULE PO PRN (19:47)
[2024-02-23] MEDS ORDERED: MAGNESIUM HYDROX 2400MG/30ML ORAL SUSPENSION 30 ML CUP PO PRN (19:47)
[2024-02-23] MEDS ORDERED: MAG HYDROX/AL HYDROX/SIMETH 30 ML UNIT-DOSE CUP PO PRN (19:47)
[2024-02-23] MEDS ORDERED: LOPERAMIDE HCL 2 MG CAPSULE PO PRN (19:47)
[2024-02-23] MEDS ORDERED: BENZOCAINE/MENTHOL (CHLORASEPTIC ) LOZENGE MM PRN (19:47)
[2024-02-23] MEDS ORDERED: BENZONATATE 200 MG CAPSULE PO PRN (19:47)
[2024-02-23] MEDS ORDERED: ACETAMINOPHEN 325 MG TABLET (FP) PO PRN (19:47)
[2024-02-23] MEDS ORDERED: ONDANSETRON *ODT* 4 MG TABLET SL PRN (19:47)
[2024-02-23] MEDS ORDERED: NALOXONE HCL 0.4 MG/ML VIAL IM PRN (19:47)
[2024-02-23] MEDS ORDERED: BISMUTH SUBSALICYLATE 524 MG/30 ML PO PRN (19:47)
[2024-02-23] MEDS ORDERED: NALOXONE (NARCAN) HCL 4 MG/0.1 ML SPRAY NS PRN (19:47)
[2024-02-23] MEDS ORDERED: POLYETHYLENE GLYCOL (HEALTHYLAX) 3350 17 GM PACKET PO PRN (19:47)
[2024-02-23] MEDS ORDERED: IBUPROFEN 400 MG TABLET (FP) PO PRN (19:47)
[2024-02-23] MEDS: hydrOXYzine PAMOATE 25 MG CAPSULE (FP) PO PRN (23:13)
[2024-02-23] MEDS: guaiFENesin 600 MG TABLET.ER (FP) PO PRN (23:13)
[2024-02-23] MEDS: METHOCARBAMOL 500 MG TABLET PO PRN (23:13)
[2024-02-23] MEDS: IBUPROFEN 600 MG TABLET (FP) PO PRN (23:14)
[2024-02-23] MEDS: THIAMINE 100 MG TABLET PO SCH (23:14)
[2024-02-23] MEDS: MELATONIN 5 MG TABLETS PO SCH (23:15)
[2024-02-24] MEDS: methaDONE HCL 40 MG DISPERSABLE TABLET PO SCH (09:47)
[2024-02-24] MEDS: methaDONE HCL 10 MG TABLET PO SCH (09:48)
[2024-02-24] MEDS ORDERED: PATIENT'S OWN MEDICATION (NON-FORMULARY) (Lisinopril [Zestril] 2.5 MG Tablet) PO SCH (10:00)
[2024-02-24] MEDS: PANTOPRAZOLE 20 MG TABLET PO SCH (10:14)
[2024-02-24] MEDS: metFORMIN HCL 500 MG TABLET (FP) PO SCH (10:14)
[2024-02-24] MEDS: diazePAM 5 MG TABLET PO ONE (10:15)
[2024-02-24] MEDS: amLODIPine BESYLATE 5 MG TABLET (FP) PO SCH (10:15)
[2024-02-24] MEDS: PRENATAL VITAMINS W/ FOLIC ACID TABLET (FP) PO SCH (10:19)
[2024-02-24] MEDS: PATIENT'S OWN MEDICATION (NON-FORMULARY) (Famotidine 40 MG Tablet) PO SCH (11:04)
[2024-02-24] MEDS: PATIENT'S OWN MEDICATION (NON-FORMULARY) (Omeprazole [Omeprazole] 20 MG Tablet.Dr) PO SCH (11:08)
[2024-02-24 11:43] LABS: CHLORIDE 105 mmol/L (98-107); POTASSIUM 4.5 mmol/L (3.5-5.1); SODIUM 140 mmol/L (136-145)
[2024-02-24 11:50] LABS: HEMATOCRIT 32.9 % (35.4-49); HEMOGLOBIN 11.1 GM/dL (11.7-16.9); MCH 27.3 pg (25.7-33.7); MCHC 33.6 g/dl (32.0-35.9); MEAN CELL VOLUME 81.2 fl (80-96); MEAN PLT VOLUME 9.1 fl (7.5-11.1); PLATELET COUNT 193 10^3/uL (134-434); RBC 4.05 M/mm3 (4.00-5.60); RDW 17.8 % (11.9-15.9); WHITE BLOOD COUNT 7.9 K/mm3 (4.0-10.0)
[2024-02-24 11:52] LABS: CALCIUM 8.7 mg/dL (8.5-10.1)
[2024-02-24 11:53] LABS: ALBUMIN 3.3 g/dl (3.4-5.0); ANION GAP 7 mmol/L (4-13); BLOOD UREA NITROGEN 16.6 mg/dL (7-18); CO2 29 mmol/L (21-32); GLUCOSE,RANDOM 141 mg/dL (74-106)
[2024-02-24 11:55] LABS: SGOT/AST 16 U/L (15-37); SGPT/ALT 18 U/L (13-61)
[2024-02-24 11:57] LABS: BILIRUBIN,TOTAL 0.3 mg/dL (0.2-1); TOT PROT 6.4 g/dl (6.4-8.2)
[2024-02-24 11:59] LABS: ALK PHOS 111 U/L (45-117)
[2024-02-24] MEDS: diazePAM 5 MG TABLET PO SCH (12:16)
[2024-02-24] MEDS: GABAPENTIN 400 MG CAPSULE PO SCH (13:18)
[2024-02-24] MEDS: ERGOCALCIFEROL (VIT D2) 50,000 UNIT (1.25 MG) CAPSULE PO SCH (13:18)
[2024-02-24] MEDS: QUEtiapine FUMARATE 50 MG TABLET PO SCH (22:40)
[2024-02-25] MEDS: diazePAM 5 MG TABLET PO SCH (05:49)
[2024-02-25] MEDS ORDERED: ERGOCALCIFEROL (VIT D2) 50,000 UNIT (1.25 MG) CAPSULE PO SCH (08:33)
[2024-02-25] MEDS: SERTRALINE HCL 50 MG TABLET (FP) PO SCH (09:19)
[2024-02-26] MEDS: diazePAM 5 MG TABLET PO SCH (05:29)
[2024-02-26] MEDS: amLODIPine BESYLATE 10 MG TABLET (FP) PO SCH (10:00)
[2024-02-26] MEDS: diazePAM 5 MG TABLET PO PRN (10:01)
[2024-02-27] MEDS: diazePAM 5 MG TABLET PO ONE (05:38)
[2024-02-27] MEDS ORDERED: ALBUTEROL SO4 HFA INHALER IH PRN (09:44)
[2024-02-27] MEDS: BUDESONIDE/FORMETEROL FUMARATE 80/4.5 mcg INHALER IH SCH (10:17)
[2024-02-28 06:04] VITALS: RESP 18
[2024-02-28 08:57] VITALS: BP 130/76; PULSE 85; TEMP 97.8
== END 2024-02-28 11:33 | disposition home or self-care (01) | DRG 773 ==
LOC: YASAS 17:11 → Y6N 21:11
PROVIDERS: ADMIT Allergy & Immunology; ATTEND Psychiatry & Neurology Pain Medicine
PROC: HZ2ZZZZ Detoxification Services for Substance Abuse Treatment (ICD-10-PCS; principal; 2024-02-23)
DX: F10.230 Alcohol dependence with withdrawal, uncomplicated (principal); F11.20 Opioid dependence, uncomplicated; F14.20 Cocaine dependence, uncomplicated; F12.20 Cannabis dependence, uncomplicated; F17.210 Nicotine dependence, cigarettes, uncomplicated; F31.9 Bipolar disorder, unspecified; F19.24 Other psychoactive substance dependence with psychoactive substance-induced mood disorder; F41.8 Other specified anxiety disorders; I10 Essential (primary) hypertension; J44.9 Chronic obstructive pulmonary disease, unspecified; K21.9 Gastro-esophageal reflux disease without esophagitis; E11.9 Type 2 diabetes mellitus without complications; Z79.84 Long term (current) use of oral hypoglycemic drugs
CPT/HCPCS: 36415; 80053; 80305; 80307; 82962; 85027; 86780; 93005; 93010

== ENCOUNTER 2024-03-18 10:54 | Inpatient (IN) | payer OTHER ==
[2024-03-18 11:27] VITALS: BMI 41.8
[2024-03-18] MEDS ORDERED: MAG HYDROX/AL HYDROX/SIMETH 30 ML UNIT-DOSE CUP PO PRN (11:44)
[2024-03-18] MEDS ORDERED: IBUPROFEN 400 MG TABLET (FP) PO PRN (11:44)
[2024-03-18] MEDS ORDERED: DICYCLOMINE HCL 10 MG CAPSULE PO PRN (11:44)
[2024-03-18] MEDS ORDERED: P-EPHED 60MG/TRIPROLIDI 2.5MG TABLET PO PRN (11:44)
[2024-03-18] MEDS ORDERED: NICOTINE POLACRILEX 2 MG GUM BUC PRN (11:44)
[2024-03-18] MEDS ORDERED: BENZONATATE 200 MG CAPSULE PO PRN (11:44)
[2024-03-18] MEDS ORDERED: BENZOCAINE/MENTHOL (CHLORASEPTIC ) LOZENGE MM PRN (11:44)
[2024-03-18] MEDS ORDERED: MAGNESIUM HYDROX 2400MG/30ML ORAL SUSPENSION 30 ML CUP PO PRN (11:44)
[2024-03-18] MEDS ORDERED: ACETAMINOPHEN 325 MG TABLET (FP) PO PRN (11:44)
[2024-03-18] MEDS ORDERED: IBUPROFEN 600 MG TABLET (FP) PO PRN (11:44)
[2024-03-18] MEDS ORDERED: NALOXONE (NARCAN) HCL 4 MG/0.1 ML SPRAY NS PRN (11:44)
[2024-03-18] MEDS ORDERED: NALOXONE HCL 0.4 MG/ML VIAL IM PRN (11:44)
[2024-03-18] MEDS ORDERED: BISMUTH SUBSALICYLATE 524 MG/30 ML PO PRN (11:44)
[2024-03-18] MEDS ORDERED: LOPERAMIDE HCL 2 MG CAPSULE PO PRN (11:44)
[2024-03-18] MEDS ORDERED: NICOTINE POLACRILEX 2 MG LOZENGE BC PRN (11:44)
[2024-03-18] MEDS ORDERED: POLYETHYLENE GLYCOL (HEALTHYLAX) 3350 17 GM PACKET PO PRN (11:44)
[2024-03-18] MEDS ORDERED: ONDANSETRON *ODT* 4 MG TABLET SL PRN (11:44)
[2024-03-18] MEDS ORDERED: guaiFENesin 600 MG TABLET.ER (FP) PO PRN (11:44)
[2024-03-18] MEDS ORDERED: ALBUTEROL SO4 HFA INHALER IH PRN (12:54)
[2024-03-18] MEDS: ALBUTEROL SO4 HFA INHALER IH SCH (13:16)
[2024-03-18] MEDS: FERROUS SO4 325 MG TABLET (FP) PO SCH (13:36)
[2024-03-18 18:34] LABS: HIV INTERPRETATION NEGATIVE (NEGATIVE)
[2024-03-18] MEDS: BUDESONIDE/FORMETEROL FUMARATE 80/4.5 mcg INHALER IH SCH (22:25)
[2024-03-18] MEDS: THIAMINE 100 MG TABLET PO SCH (22:26)
[2024-03-18] MEDS: METHOCARBAMOL 500 MG TABLET PO PRN (22:26)
[2024-03-18] MEDS: MELATONIN 5 MG TABLETS PO SCH (22:26)
[2024-03-19] MEDS: methaDONE HCL 40 MG DISPERSABLE TABLET PO SCH (05:56)
[2024-03-19] MEDS: metFORMIN HCL 500 MG TABLET (FP) PO SCH (06:47)
[2024-03-19] MEDS ORDERED: diazePAM 5 MG TABLET PO PRN (08:19)
[2024-03-19] MEDS: PRENATAL VITAMINS W/ FOLIC ACID TABLET (FP) PO SCH (10:01)
[2024-03-19] MEDS: amLODIPine BESYLATE 10 MG TABLET (FP) PO SCH (10:03)
[2024-03-19] MEDS: PANTOPRAZOLE 40 MG TABLET PO SCH (10:03)
[2024-03-19] MEDS: LISINOPRIL 5 MG TABLET PO SCH (10:03)
[2024-03-19] MEDS: diazePAM 5 MG TABLET PO SCH (10:06)
[2024-03-19] MEDS: SERTRALINE HCL 50 MG TABLET (FP) PO SCH (11:01)
[2024-03-19] MEDS: GABAPENTIN 400 MG CAPSULE PO SCH (13:59)
[2024-03-19] MEDS: QUEtiapine FUMARATE 50 MG TABLET PO SCH (22:16)
[2024-03-21] MEDS: diazePAM 5 MG TABLET PO SCH (06:26)
[2024-03-21 07:05] VITALS: RESP 18
[2024-03-21 09:26] VITALS: BP 146/76; PULSE 88; TEMP 98
[2024-03-22] MEDS ORDERED: diazePAM 5 MG TABLET PO SCH (06:00)
[2024-03-23] MEDS ORDERED: diazePAM 5 MG TABLET PO ONE (06:00)
== END 2024-03-21 10:55 | disposition home or self-care (01) | DRG 773 ==
LOC: YASAS 10:54 → Y6N 12:35
PROVIDERS: ADMIT Allergy & Immunology; ATTEND Surgery
PROC: HZ2ZZZZ Detoxification Services for Substance Abuse Treatment (ICD-10-PCS; principal; 2024-03-18)
DX: F13.230 Sedative, hypnotic or anxiolytic dependence with withdrawal, uncomplicated (principal); F14.20 Cocaine dependence, uncomplicated; F11.20 Opioid dependence, uncomplicated; F17.210 Nicotine dependence, cigarettes, uncomplicated; F31.9 Bipolar disorder, unspecified; E11.9 Type 2 diabetes mellitus without complications; Z79.84 Long term (current) use of oral hypoglycemic drugs; J45.909 Unspecified asthma, uncomplicated; Z99.89 Dependence on other enabling machines and devices; Z88.8 Allergy status to other drugs, medicaments and biological substances
CPT/HCPCS: 36415; 80305; 80307; 82962; 86803; 87389; 87522

== ENCOUNTER 2024-04-19 09:53 | Inpatient (IN) | payer OTHER ==
[2024-04-19 10:25] VITALS: BMI 42.9
[2024-04-19] MEDS ORDERED: MAG HYDROX/AL HYDROX/SIMETH 30 ML UNIT-DOSE CUP PO PRN (11:24)
[2024-04-19] MEDS ORDERED: IBUPROFEN 600 MG TABLET (FP) PO PRN (11:24)
[2024-04-19] MEDS ORDERED: BENZOCAINE/MENTHOL (CHLORASEPTIC ) LOZENGE MM PRN (11:24)
[2024-04-19] MEDS ORDERED: ACETAMINOPHEN 325 MG TABLET (FP) PO PRN (11:24)
[2024-04-19] MEDS ORDERED: POLYETHYLENE GLYCOL (HEALTHYLAX) 3350 17 GM PACKET PO PRN (11:24)
[2024-04-19] MEDS ORDERED: DICYCLOMINE HCL 10 MG CAPSULE PO PRN (11:24)
[2024-04-19] MEDS ORDERED: chlordiazePOXIDE HCL 25 MG CAPSULE PO PRN (11:24)
[2024-04-19] MEDS ORDERED: NALOXONE (NARCAN) HCL 4 MG/0.1 ML SPRAY NS PRN (11:24)
[2024-04-19] MEDS ORDERED: MAGNESIUM HYDROX 2400MG/30ML ORAL SUSPENSION 30 ML CUP PO PRN (11:24)
[2024-04-19] MEDS ORDERED: ONDANSETRON *ODT* 4 MG TABLET SL PRN (11:24)
[2024-04-19] MEDS ORDERED: hydrOXYzine PAMOATE 25 MG CAPSULE (FP) PO PRN (11:24)
[2024-04-19] MEDS ORDERED: NALOXONE (NYS OPIOID OVERDOSE PROGRAM) 4 MG/0.1 ML SPRAY NS PRN (11:24)
[2024-04-19] MEDS ORDERED: BENZONATATE 200 MG CAPSULE PO PRN (11:24)
[2024-04-19] MEDS ORDERED: guaiFENesin 600 MG TABLET.ER (FP) PO PRN (11:24)
[2024-04-19] MEDS ORDERED: IBUPROFEN 400 MG TABLET (FP) PO PRN (11:24)
[2024-04-19] MEDS: PRENATAL VITAMINS W/ FOLIC ACID TABLET (FP) PO SCH (12:45)
[2024-04-19] MEDS ORDERED: ALBUTEROL SO4 HFA INHALER IH PRN (16:18)
[2024-04-19] MEDS: chlordiazePOXIDE HCL 25 MG CAPSULE PO SCH (17:28)
[2024-04-19] MEDS: BUDESONIDE/FORMETEROL FUMARATE 80/4.5 mcg INHALER IH SCH (22:11)
[2024-04-19] MEDS: MIRTAZAPINE 15 MG TABLET (FP) PO SCH (22:12)
[2024-04-19] MEDS: MELATONIN 5 MG TABLETS PO SCH (22:12)
[2024-04-19] MEDS: THIAMINE 100 MG TABLET PO SCH (22:12)
[2024-04-19] MEDS: GABAPENTIN 100 MG CAPSULE PO SCH (22:12)
[2024-04-20] MEDS: metFORMIN HCL 500 MG TABLET (FP) PO SCH (06:42)
[2024-04-20 09:23] LABS: POTASSIUM 4.6 mmol/L (3.5-5.1)
[2024-04-20 09:25] LABS: CALCIUM 9.1 mg/dL (8.5-10.1)
[2024-04-20 09:26] LABS: ALBUMIN 3.4 g/dl (3.4-5.0); BLOOD UREA NITROGEN 15.9 mg/dL (7-18)
[2024-04-20 09:29] LABS: CREATININE 0.9 mg/dL (0.55-1.3)
[2024-04-20 09:30] LABS: BILIRUBIN,TOTAL 0.2 mg/dL (0.2-1); HEMATOCRIT 35.1 % (35.4-49); HEMOGLOBIN 11.5 GM/dL (11.7-16.9); MCH 27.1 pg (25.7-33.7); MCHC 32.8 g/dl (32.0-35.9); MEAN CELL VOLUME 82.8 fl (80-96); MEAN PLT VOLUME 8.7 fl (7.5-11.1); PLATELET COUNT 204 10^3/uL (134-434); RBC 4.23 M/mm3 (4.00-5.60); WHITE BLOOD COUNT 9.7 K/mm3 (4.0-10.0)
[2024-04-20 09:31] LABS: TOT PROT 6.7 g/dl (6.4-8.2)
[2024-04-20] MEDS ORDERED: PATIENT'S OWN MEDICATION (NON-FORMULARY) (Omeprazole [Omeprazole] 20 MG Tablet.Dr) PO SCH (10:00)
[2024-04-20] MEDS ORDERED: PATIENT'S OWN MEDICATION (NON-FORMULARY) (Lisinopril [Zestril] 2.5 MG Tablet) PO SCH (10:00)
[2024-04-20] MEDS: NICOTINE 14 MG/24 HOURS TOPICAL PATCH TD SCH (10:32)
[2024-04-20] MEDS: LISINOPRIL 5 MG TABLET PO SCH (10:33)
[2024-04-20] MEDS: amLODIPine BESYLATE 10 MG TABLET (FP) PO SCH (10:33)
[2024-04-20] MEDS: PANTOPRAZOLE 20 MG TABLET PO SCH (10:34)
[2024-04-20] MEDS: SERTRALINE HCL 50 MG TABLET (FP) PO SCH (10:34)
[2024-04-20] MEDS: methaDONE HCL 40 MG DISPERSABLE TABLET PO ONE (10:35)
[2024-04-21] MEDS: chlordiazePOXIDE HCL 25 MG CAPSULE PO SCH (05:28)
[2024-04-21] MEDS: methaDONE HCL 40 MG DISPERSABLE TABLET PO ONE (09:13)
[2024-04-21] MEDS: BISMUTH SUBSALICYLATE 262 MG/15 ML BTL PO PRN (10:13)
[2024-04-21] MEDS: LOPERAMIDE HCL 2 MG CAPSULE PO PRN (17:23)
[2024-04-21] MEDS: METHOCARBAMOL 500 MG TABLET PO PRN (22:33)
[2024-04-22] MEDS ORDERED: chlordiazePOXIDE HCL 10 MG CAPSULE PO PRN
[2024-04-22] MEDS: chlordiazePOXIDE HCL 10 MG CAPSULE PO SCH (05:09)
[2024-04-22] MEDS: methaDONE HCL 40 MG DISPERSABLE TABLET PO SCH (09:42)
[2024-04-22] MEDS: FERROUS SO4 325 MG TABLET (FP) PO SCH (13:25)
[2024-04-23] MEDS: chlordiazePOXIDE HCL 10 MG CAPSULE PO SCH (05:17)
[2024-04-23] MEDS: FLU VACCINE (FLULAVAL) PF 45 MCG/0.5 ML SYRINGE 2024-2025 IM ONE (12:45)
[2024-04-24] MEDS: chlordiazePOXIDE HCL 10 MG CAPSULE PO ONE (05:54)
[2024-04-24 09:19] VITALS: BP 123/78; PULSE 96; RESP 18; TEMP 97.4
[2024-04-24] MEDS: ERGOCALCIFEROL (VIT D2) 50,000 UNIT (1.25 MG) CAPSULE PO SCH (10:04)
== END 2024-04-24 16:09 | disposition other institution (70) | DRG 773 ==
LOC: YASAS 09:53 → Y3N 11:51
PROVIDERS: ADMIT Allergy & Immunology; ATTEND Surgery
PROC: HZ2ZZZZ Detoxification Services for Substance Abuse Treatment (ICD-10-PCS; principal; 2024-04-19)
DX: F13.230 Sedative, hypnotic or anxiolytic dependence with withdrawal, uncomplicated (principal); F11.20 Opioid dependence, uncomplicated; F14.20 Cocaine dependence, uncomplicated; F17.210 Nicotine dependence, cigarettes, uncomplicated; F31.9 Bipolar disorder, unspecified; F41.9 Anxiety disorder, unspecified; G47.00 Insomnia, unspecified; I10 Essential (primary) hypertension; J45.909 Unspecified asthma, uncomplicated; K21.9 Gastro-esophageal reflux disease without esophagitis; E11.9 Type 2 diabetes mellitus without complications; Z79.84 Long term (current) use of oral hypoglycemic drugs; M25.562 Pain in left knee; Z99.89 Dependence on other enabling machines and devices; Z88.8 Allergy status to other drugs, medicaments and biological substances
CPT/HCPCS: 36415; 80053; 80305; 80307; 82962; 85027; 86780; 87811; 90656; 93005; 93010; G0008

== ENCOUNTER 2024-04-24 16:19 | Inpatient (IN) | payer OTHER ==
[2024-04-24] MEDS ORDERED: ACETAMINOPHEN 325 MG TABLET (FP) PO PRN (19:07)
[2024-04-24] MEDS ORDERED: LOPERAMIDE HCL 2 MG CAPSULE PO PRN (19:07)
[2024-04-24] MEDS ORDERED: METHOCARBAMOL 500 MG TABLET PO PRN (19:07)
[2024-04-24] MEDS ORDERED: guaiFENesin 600 MG TABLET.ER (FP) PO PRN (19:07)
[2024-04-24] MEDS ORDERED: hydrOXYzine PAMOATE 25 MG CAPSULE (FP) PO PRN (19:07)
[2024-04-24] MEDS ORDERED: NALOXONE HCL 0.4 MG/ML VIAL IVPUSH PRN (19:07)
[2024-04-24] MEDS ORDERED: IBUPROFEN 400 MG TABLET (FP) PO PRN (19:07)
[2024-04-24] MEDS ORDERED: BENZOCAINE/MENTHOL (CHLORASEPTIC ) LOZENGE MM PRN (19:07)
[2024-04-24] MEDS ORDERED: IBUPROFEN 600 MG TABLET (FP) PO PRN (19:07)
[2024-04-24] MEDS ORDERED: NALOXONE (NARCAN) HCL 4 MG/0.1 ML SPRAY NS PRN (19:07)
[2024-04-24] MEDS ORDERED: MAGNESIUM HYDROX 2400MG/30ML ORAL SUSPENSION 30 ML CUP PO PRN (19:07)
[2024-04-24] MEDS ORDERED: POLYETHYLENE GLYCOL (HEALTHYLAX) 3350 17 GM PACKET PO PRN (19:07)
[2024-04-24] MEDS ORDERED: BENZONATATE 200 MG CAPSULE PO PRN (19:07)
[2024-04-24] MEDS: BUDESONIDE/FORMETEROL FUMARATE 80/4.5 mcg INHALER IH SCH (21:49)
[2024-04-24] MEDS: MELATONIN 5 MG TABLETS PO SCH (21:49)
[2024-04-24] MEDS: MIRTAZAPINE 15 MG TABLET (FP) PO SCH (21:49)
[2024-04-24] MEDS: THIAMINE 100 MG TABLET PO SCH (21:49)
[2024-04-24] MEDS: GABAPENTIN 100 MG CAPSULE PO SCH (21:49)
[2024-04-25] MEDS: methaDONE HCL 40 MG DISPERSABLE TABLET PO SCH (06:07)
[2024-04-25] MEDS: PRENATAL VITAMINS W/ FOLIC ACID TABLET (FP) PO SCH (09:00)
[2024-04-25] MEDS ORDERED: ERGOCALCIFEROL (VIT D2) 50,000 UNIT (1.25 MG) CAPSULE PO SCH (10:45)
[2024-04-25] MEDS: metFORMIN HCL 500 MG TABLET (FP) PO SCH (11:11)
[2024-04-25] MEDS: amLODIPine BESYLATE 10 MG TABLET (FP) PO SCH (11:11)
[2024-04-25] MEDS: LISINOPRIL 5 MG TABLET PO SCH (11:32)
[2024-04-25] MEDS: SERTRALINE HCL 25 MG TABLET (FP) PO SCH (11:32)
[2024-04-25] MEDS: PANTOPRAZOLE 20 MG TABLET PO SCH (11:32)
[2024-04-25] MEDS: GABAPENTIN 400 MG CAPSULE PO SCH (13:01)
[2024-04-25] MEDS: MAG HYDROX/AL HYDROX/SIMETH 30 ML UNIT-DOSE CUP PO PRN (21:27)
[2024-04-25] MEDS: MIRTAZAPINE 15 MG TABLET (FP) PO SCH (21:27)
[2024-04-25] MEDS: FERROUS SO4 325 MG TABLET (FP) PO SCH (21:27)
[2024-04-29] MEDS: NICOTINE POLACRILEX 4 MG GUM BUC PRN (14:21)
[2024-05-01] MEDS: ERGOCALCIFEROL (VIT D2) 50,000 UNIT (1.25 MG) CAPSULE PO SCH (10:11)
[2024-05-02] MEDS: methaDONE HCL 40 MG DISPERSABLE TABLET PO SCH (06:14)
[2024-05-02] MEDS ORDERED: ALBUTEROL SO4 HFA INHALER IH PRN (13:31)
[2024-05-03] MEDS ORDERED: NALOXONE (NYS OPIOID OVERDOSE PROGRAM) 4 MG/0.1 ML SPRAY NS PRN (08:13)
[2024-05-03] MEDS: NALOXONE (NARCAN) HCL 4 MG/0.1 ML SPRAY NS ONE (08:23)
[2024-05-06] MEDS: MIRTAZAPINE 15 MG TABLET (FP) PO SCH (21:27)
[2024-05-09] MEDS: methaDONE HCL 40 MG DISPERSABLE TABLET PO SCH (06:07)
[2024-05-10 07:11] VITALS: RESP 17; TEMP 97.9
[2024-05-10] MEDS: NALOXONE (NYS OPIOID OVERDOSE PROGRAM) 4 MG/0.1 ML SPRAY NS SCH (08:47)
[2024-05-10 09:05] VITALS: BP 118/75; PULSE 98
== END 2024-05-10 10:57 | disposition home or self-care (01) | DRG 772 ==
LOC: YASAS 16:19 → Y3NR 16:21 → Y3E 04-25 10:58
PROVIDERS: ADMIT Allergy & Immunology; ATTEND Psychiatry & Neurology Pain Medicine
PROC: HZ42ZZZ Group Counseling for Substance Abuse Treatment, Cognitive-Behavioral (ICD-10-PCS; principal; 2024-04-24)
DX: F11.20 Opioid dependence, uncomplicated (principal); F10.20 Alcohol dependence, uncomplicated; F13.20 Sedative, hypnotic or anxiolytic dependence, uncomplicated; F14.20 Cocaine dependence, uncomplicated; F12.20 Cannabis dependence, uncomplicated; F17.210 Nicotine dependence, cigarettes, uncomplicated; F19.282 Other psychoactive substance dependence with psychoactive substance-induced sleep disorder; F31.9 Bipolar disorder, unspecified; F19.24 Other psychoactive substance dependence with psychoactive substance-induced mood disorder; F41.9 Anxiety disorder, unspecified; I10 Essential (primary) hypertension; J45.909 Unspecified asthma, uncomplicated; K21.9 Gastro-esophageal reflux disease without esophagitis; G47.00 Insomnia, unspecified; E11.9 Type 2 diabetes mellitus without complications; Z79.84 Long term (current) use of oral hypoglycemic drugs; M25.562 Pain in left knee; Z99.89 Dependence on other enabling machines and devices
CPT/HCPCS: 36415; 82962; 86803; 87522

== ENCOUNTER 2024-06-20 12:06 | Inpatient (IN) | payer OTHER ==
[2024-06-20 16:08] VITALS: BMI 41.1
[2024-06-20] MEDS ORDERED: hydrOXYzine PAMOATE 25 MG CAPSULE (FP) PO PRN (16:39)
[2024-06-20] MEDS ORDERED: LOPERAMIDE HCL 2 MG CAPSULE PO PRN (16:39)
[2024-06-20] MEDS ORDERED: guaiFENesin 600 MG TABLET.ER (FP) PO PRN (16:39)
[2024-06-20] MEDS ORDERED: MAG HYDROX/AL HYDROX/SIMETH 30 ML UNIT-DOSE CUP PO PRN (16:39)
[2024-06-20] MEDS ORDERED: MAGNESIUM HYDROX 2400MG/30ML ORAL SUSPENSION 30 ML CUP PO PRN (16:39)
[2024-06-20] MEDS ORDERED: BISMUTH SUBSALICYLATE 524 MG/30 ML PO PRN (16:39)
[2024-06-20] MEDS ORDERED: ONDANSETRON *ODT* 4 MG TABLET SL PRN (16:39)
[2024-06-20] MEDS ORDERED: NALOXONE (NARCAN) HCL 4 MG/0.1 ML SPRAY NS PRN (16:39)
[2024-06-20] MEDS ORDERED: BENZONATATE 200 MG CAPSULE PO PRN (16:39)
[2024-06-20] MEDS ORDERED: IBUPROFEN 400 MG TABLET (FP) PO PRN (16:39)
[2024-06-20] MEDS ORDERED: IBUPROFEN 600 MG TABLET (FP) PO PRN (16:39)
[2024-06-20] MEDS ORDERED: DICYCLOMINE HCL 10 MG CAPSULE PO PRN (16:39)
[2024-06-20] MEDS ORDERED: BENZOCAINE/MENTHOL (CHLORASEPTIC ) LOZENGE MM PRN (16:39)
[2024-06-20] MEDS ORDERED: POLYETHYLENE GLYCOL (HEALTHYLAX) 3350 17 GM PACKET PO PRN (16:39)
[2024-06-20] MEDS ORDERED: diazePAM 5 MG TABLET ONE (17:12)
[2024-06-20] MEDS: diazePAM 5 MG TABLET PO SCH (17:16)
[2024-06-20] MEDS: MELATONIN 5 MG TABLETS PO SCH (22:44)
[2024-06-20] MEDS: THIAMINE 100 MG TABLET PO SCH (22:46)
[2024-06-21] MEDS: methaDONE HCL 40 MG DISPERSABLE TABLET PO SCH (07:59)
[2024-06-21] MEDS ORDERED: ALBUTEROL SO4 HFA INHALER IH PRN (08:09)
[2024-06-21] MEDS: amLODIPine BESYLATE 10 MG TABLET (FP) PO SCH (10:25)
[2024-06-21] MEDS: LISINOPRIL 5 MG TABLET PO SCH (10:25)
[2024-06-21] MEDS: PANTOPRAZOLE 20 MG TABLET PO SCH (10:25)
[2024-06-21] MEDS: METHOCARBAMOL 500 MG TABLET PO PRN (10:25)
[2024-06-21] MEDS: PRENATAL VITAMINS W/ FOLIC ACID TABLET (FP) PO SCH (10:26)
[2024-06-21] MEDS: BUDESONIDE/FORMETEROL FUMARATE 80/4.5 mcg INHALER IH SCH (10:28)
[2024-06-21] MEDS: SERTRALINE HCL 25 MG TABLET (FP) PO SCH (10:33)
[2024-06-21] MEDS: GABAPENTIN 400 MG CAPSULE PO SCH (13:03)
[2024-06-21] MEDS: ACETAMINOPHEN 325 MG TABLET (FP) PO PRN (17:47)
[2024-06-21] MEDS: MIRTAZAPINE 15 MG TABLET (FP) PO SCH (22:13)
[2024-06-22] MEDS: diazePAM 5 MG TABLET PO SCH (05:40)
[2024-06-22] MEDS: metFORMIN HCL 500 MG TABLET (FP) PO SCH (06:17)
[2024-06-22] MEDS: diazePAM 5 MG TABLET PO PRN (10:03)
[2024-06-23] MEDS: diazePAM 5 MG TABLET PO SCH (05:38)
[2024-06-23] MEDS: NALOXONE (NYS OPIOID OVERDOSE PROGRAM) 4 MG/0.1 ML SPRAY NS SCH (15:32)
[2024-06-24] MEDS: diazePAM 5 MG TABLET PO ONE (05:41)
[2024-06-24 13:23] VITALS: BP 145/78; PULSE 95; RESP 17; TEMP 97.8
== END 2024-06-24 15:15 | disposition other institution (70) | DRG 773 ==
LOC: YASAS 12:06 → Y6N 16:48
PROVIDERS: ADMIT Allergy & Immunology; ATTEND Surgery
PROC: HZ2ZZZZ Detoxification Services for Substance Abuse Treatment (ICD-10-PCS; principal; 2024-06-20)
DX: F10.230 Alcohol dependence with withdrawal, uncomplicated (principal); F13.230 Sedative, hypnotic or anxiolytic dependence with withdrawal, uncomplicated; F14.20 Cocaine dependence, uncomplicated; F11.20 Opioid dependence, uncomplicated; F17.210 Nicotine dependence, cigarettes, uncomplicated; I10 Essential (primary) hypertension; K21.9 Gastro-esophageal reflux disease without esophagitis; J45.909 Unspecified asthma, uncomplicated; E11.9 Type 2 diabetes mellitus without complications; Z79.84 Long term (current) use of oral hypoglycemic drugs; M25.562 Pain in left knee; Z99.89 Dependence on other enabling machines and devices; Z86.59 Personal history of other mental and behavioral disorders
CPT/HCPCS: 80305; 80307; 82962; 86780; 87811; 93005; 93010

== ENCOUNTER 2024-06-24 15:24 | Inpatient (IN) | payer OTHER ==
[2024-06-24] MEDS ORDERED: MAGNESIUM HYDROX 2400MG/30ML ORAL SUSPENSION 30 ML CUP PO PRN (18:09)
[2024-06-24] MEDS ORDERED: NALOXONE HCL 0.4 MG/ML VIAL IVPUSH PRN (18:09)
[2024-06-24] MEDS ORDERED: BENZONATATE 200 MG CAPSULE PO PRN (18:09)
[2024-06-24] MEDS ORDERED: NALOXONE (NARCAN) HCL 4 MG/0.1 ML SPRAY NS PRN (18:09)
[2024-06-24] MEDS ORDERED: BENZOCAINE/MENTHOL (CHLORASEPTIC ) LOZENGE MM PRN (18:09)
[2024-06-24] MEDS ORDERED: hydrOXYzine PAMOATE 25 MG CAPSULE (FP) PO PRN (18:09)
[2024-06-24] MEDS ORDERED: guaiFENesin 600 MG TABLET.ER (FP) PO PRN (18:09)
[2024-06-24] MEDS ORDERED: POLYETHYLENE GLYCOL (HEALTHYLAX) 3350 17 GM PACKET PO PRN (18:09)
[2024-06-24] MEDS ORDERED: ACETAMINOPHEN 325 MG TABLET (FP) PO PRN (18:09)
[2024-06-24] MEDS ORDERED: LOPERAMIDE HCL 2 MG CAPSULE PO PRN (18:09)
[2024-06-24] MEDS ORDERED: ALBUTEROL SO4 HFA INHALER IH PRN (18:23)
[2024-06-24] MEDS: BUDESONIDE/FORMETEROL FUMARATE 160/4.5 mcg INHALER IH SCH (21:30)
[2024-06-24] MEDS: MELATONIN 5 MG TABLETS PO SCH (21:31)
[2024-06-24] MEDS: THIAMINE 100 MG TABLET PO SCH (21:31)
[2024-06-24] MEDS: METHOCARBAMOL 500 MG TABLET PO PRN (21:31)
[2024-06-24] MEDS: MIRTAZAPINE 15 MG TABLET (FP) PO ONE (21:56)
[2024-06-25] MEDS: methaDONE HCL 40 MG DISPERSABLE TABLET PO SCH (05:25)
[2024-06-25] MEDS: metFORMIN HCL 500 MG TABLET (FP) PO SCH (06:34)
[2024-06-25] MEDS: PRENATAL VITAMINS W/ FOLIC ACID TABLET (FP) PO SCH (09:13)
[2024-06-25] MEDS: amLODIPine BESYLATE 10 MG TABLET (FP) PO SCH (09:14)
[2024-06-25] MEDS: LISINOPRIL 5 MG TABLET PO SCH (09:14)
[2024-06-25] MEDS: GABAPENTIN 400 MG CAPSULE PO ONE (09:14)
[2024-06-25] MEDS: PANTOPRAZOLE 40 MG TABLET PO SCH (09:17)
[2024-06-25] MEDS: SERTRALINE HCL 25 MG TABLET (FP) PO SCH (09:17)
[2024-06-25] MEDS: GABAPENTIN 400 MG CAPSULE PO SCH ×2 (09:20→13:50)
[2024-06-25] MEDS ORDERED: PATIENT'S OWN MEDICATION (NON-FORMULARY) (Lisinopril [Zestril] 2.5 MG Tablet) PO SCH (10:00)
[2024-06-25] MEDS: MAG HYDROX/AL HYDROX/SIMETH 30 ML UNIT-DOSE CUP PO PRN (10:33)
[2024-06-25] MEDS: MIRTAZAPINE 15 MG TABLET (FP) PO SCH (21:10)
[2024-06-25] MEDS: QUEtiapine FUMARATE 50 MG TABLET PO PRN (21:10)
[2024-06-26] MEDS ORDERED: QUEtiapine FUMARATE 25 MG TABLET ONE (21:14)
[2024-06-27] MEDS: IBUPROFEN 600 MG TABLET (FP) PO PRN (15:37)
[2024-07-02] MEDS: methaDONE HCL 40 MG DISPERSABLE TABLET PO SCH (06:00)
[2024-07-02] MEDS: IBUPROFEN 400 MG TABLET (FP) PO PRN (10:11)
[2024-07-02] MEDS: BENZOCAINE 20 % GEL TUBE MM PRN (12:05)
[2024-07-02] MEDS ORDERED: FAMOTIDINE 20 MG TABLET PO PRN (14:08)
[2024-07-03] MEDS: METHOCARBAMOL 500 MG TABLET PO PRN (09:56)
[2024-07-03] MEDS: QUEtiapine FUMARATE 100 MG TABLET (FP) PO SCH (21:45)
[2024-07-05 14:40] LABS: HEMOGLOBIN 10.1 GM/dL (11.7-16.9); MCHC 31.6 g/dl (32.0-35.9); MEAN CELL VOLUME 85.3 fl (80-96); MEAN PLT VOLUME 9.2 fl (7.5-11.1); PLATELET COUNT 282 10^3/uL (134-434); RBC 3.76 M/mm3 (4.00-5.60); RDW 17.3 % (11.9-15.9); WHITE BLOOD COUNT 10.3 K/mm3 (4.0-10.0)
[2024-07-05 15:07] LABS: ANISOCYTOSIS 0; MACROCYTOSIS 0
[2024-07-05 15:44] LABS: POTASSIUM 4.6 mmol/L (3.5-5.1)
[2024-07-05 15:48] LABS: ALBUMIN 3.4 g/dl (3.4-5.0)
[2024-07-05 15:50] LABS: MAGNESIUM 2.3 mg/dL (1.8-2.4)
[2024-07-05 15:51] LABS: BLOOD UREA NITROGEN 14.8 mg/dL (7-18); CALCIUM 9.1 mg/dL (8.5-10.1)
[2024-07-05 15:52] LABS: CREATININE 1.1 mg/dL (0.55-1.3)
[2024-07-05 15:53] LABS: TOT PROT 7.2 g/dl (6.4-8.2)
[2024-07-05 15:56] LABS: BILIRUBIN,TOTAL 0.2 mg/dL (0.2-1)
[2024-07-08 06:55] VITALS: TEMP 98.1
[2024-07-08] MEDS: NALOXONE (NYS OPIOID OVERDOSE PROGRAM) 4 MG/0.1 ML SPRAY NS SCH (08:41)
[2024-07-08 09:12] VITALS: BP 130/77; PULSE 101; RESP 18
== END 2024-07-08 09:43 | disposition home or self-care (01) | DRG 772 ==
LOC: YASAS 15:24 → Y3NR 15:25 → Y3E 06-25 09:23
PROVIDERS: ADMIT Allergy & Immunology; ATTEND Psychiatry & Neurology Pain Medicine
PROC: HZ42ZZZ Group Counseling for Substance Abuse Treatment, Cognitive-Behavioral (ICD-10-PCS; principal; 2024-06-24)
DX: F10.20 Alcohol dependence, uncomplicated (principal); F13.20 Sedative, hypnotic or anxiolytic dependence, uncomplicated; F14.20 Cocaine dependence, uncomplicated; F11.20 Opioid dependence, uncomplicated; F17.210 Nicotine dependence, cigarettes, uncomplicated; F19.282 Other psychoactive substance dependence with psychoactive substance-induced sleep disorder; F19.24 Other psychoactive substance dependence with psychoactive substance-induced mood disorder; F31.9 Bipolar disorder, unspecified; F41.9 Anxiety disorder, unspecified; I10 Essential (primary) hypertension; J45.909 Unspecified asthma, uncomplicated; K21.9 Gastro-esophageal reflux disease without esophagitis; K12.0 Recurrent oral aphthae; E11.9 Type 2 diabetes mellitus without complications; Z79.84 Long term (current) use of oral hypoglycemic drugs; R60.0 Localized edema; M25.562 Pain in left knee; Z99.89 Dependence on other enabling machines and devices
CPT/HCPCS: 36415; 80053; 80061; 82652; 82962; 83036; 83735; 85025; 86803; 87522